=== PATIENT | female | born 1975 | race Caucasian/White ===

== ENCOUNTER 2016-10-18 19:38 | Emergency (ER) | payer BC ==
[2016-10-18 19:49] VITALS: BP 141/95
[2016-10-18] MEDS ORDERED: Sodium Chloride 0.9% 10 ML Syringe FLUSH PRN ×2 (20:56→22:10)
--- NOTE | 2016-10-18 21:19 | EDM.PDOC ---
ED HPI GENERAL MEDICAL PROBLEM - General Chief Complaint: Respiratory Problem Stated Complaint: Cough, shortness of breath Time Seen by Provider: 10/18/16 20:20 Source of Information: Reports: Patient, RN Notes Reviewed History Limitations: Reports: No Limitations - History of Present Illness INITIAL COMMENTS - FREE TEXT/NARRATIVE: 40 year old female presents to the ED today with complaints of 7 day history of cough, shortness of breath, and lightheadedness. She is very short of breath with exertion. Cough is non-productive, frequent, and harsh. The symptoms have worsened over the past 3 days. She feels as though she could pass out at times but has had no syncopal episodes. She reports low grade temperature. No chills or sweats. She has no history of cardiac or pulmonary problems. She denies history of asthma or seasonal allergies. She has not traveled outside the [place]. She denies any history of drug use. She denies clotting disorder or history of blood clots. She has no unilateral or bilateral lower extremity pain, swelling, or erythema. She is not a smoker. She denies possibility of . She says her period was heavier than normal this past month. - Related Data Allergies Allergy/AdvReac Type Severity Reaction Status Date / Time sulfamethoxazole Allergy Hives Verified 10/18/16 22:03 trimethoprim Allergy Hives Verified 10/18/16 22:04 Past Medical History HEENT History: Reports: Impaired Vision Other HEENT History: wears corrective lenses Musculoskeletal History: Reports: Other (See Below) Other Musculoskeletal History: carpal tunnel bilaterally - Past Surgical History HEENT Surgical History: Reports: None GI Surgical History: Reports: Appendectomy Musculoskeletal Surgical History: Reports: Other (See Below) Other Musculoskeletal Surgeries/Procedures:: carpal tunnel corrective surgery Social & Family History - Tobacco Use Smoking Status *Q: Never Smoker Second Hand Smoke Exposure: No - Caffeine Use Caffeine Use: Reports: Soda, Tea - Recreational Drug Use Recreational Drug Use: No ED ROS GENERAL - Review of Systems Review Of Systems: See Below Constitutional: Reports: Malaise, Weakness, Fatigue. Denies: Fever, Chills, Diaphoresis Respiratory: Reports: Shortness of Breath, Cough. Denies: Pleuritic Chest Pain , Sputum, Hemoptysis Cardiovascular: Reports: Dyspnea on Exertion, Lightheadedness. Denies: Chest Pain, Edema, Palpitations, Syncope GI/Abdominal: Reports: No Symptoms. Denies: Abdominal Pain, Nausea, Vomiting : Reports: No Symptoms, Other (recent UTI treated with keflex) Neurological: Reports: No Symptoms. Denies: Confusion, Dizziness, Headache, Numbness, Tingling, Weakness ED EXAM, GENERAL - Physical Exam Exam: See Below Exam Limited By: No Limitations General Appearance: Alert, WD/WN, No Apparent Distress Throat/Mouth: Normal Inspection, Normal Oropharynx, Other (dry mucous membranes ) Head: Atraumatic, Normocephalic Neck: Normal Inspection, Supple, Non-Tender, Full Range of Motion Respiratory/Chest: No Respiratory Distress, Lungs Clear, No Accessory Muscle Use , Chest Non-Tender, Decreased Breath Sounds. No: Crackles, Rales, Rhonchi, Wheezing, Stridor, Pleural Rub Cardiovascular: Normal Peripheral Pulses, No Edema, No Murmur, Tachycardia GI/Abdominal: Normal Bowel Sounds, Soft, Non-Tender Back Exam: Normal Inspection, Full Range of Motion. No: CVA Tenderness (L), CVA Tenderness (R) Extremities: Normal Inspection, Normal Range of Motion, Non-Tender, No Pedal Edema. No: Abdi's Sign, Leg Pain, Increased Warmth, Pallor, Redness Neurological: Alert, Oriented, Normal Cognition, Normal Gait, No Motor/Sensory Deficits Skin Exam: Warm, Dry, Intact Course - Vital Signs Last Recorded V/S: Last Vital Signs Temp 98.1 F 10/18/16 19:46 Pulse 119 H 10/18/16 19:46 Resp 19 10/18/16 19:46 BP 141/95 H 10/18/16 19:46 Pulse Ox Orthostatic Blood Pressure [ 70/49 Standing] Orthostatic Blood Pressure [ 129/86 Sitting] Orthostatic Blood Pressure [ 129/85 Supine] - Orders/Labs/Meds Orders: Active Orders 24 hr Category Date Time Status Orthostatic Vital Signs [RC] ASDIRECTED Care 10/18/16 20:42 Active Peripheral IV Care [RC] . DIRECTED Care 10/18/16 20:56 Active CXR [Chest 2V] [CR] Stat Exams 10/18/16 20:35 Taken Chest w wo Cont [CT] Stat Exams 10/18/16 21:52 Taken CULTURE BLOOD [BC] Stat Lab 10/18/16 23:12 Received CULTURE BLOOD [BC] Stat Lab 10/18/16 23:12 Received QUANTIFERON MTB TEST [REF] Stat Lab 10/18/16 21:29 Received Blood Culture x2 Reflex Set [OM.PC] Stat Oth 10/18/16 22:18 Ordered Peripheral IV Insertion Adult [OM.PC] Stat Oth 10/18/16 20:56 Ordered Labs: Laboratory Tests 10/18/16 10/18/16 10/18/16 Range/Units 21:29 21:29 21:47 WBC 15.41 H (3.98-10.04) K/mm3 RBC 4.87 (3.98-5.22) M/mm3 Hgb 13.6 (11.2-15.7) gm/L Hct 40.6 (34.1-44.9) % MCV 83.4 (79.4-94.8) fl MCH 27.9 (25.6-32.2) pg MCHC 33.5 (32.2-35.5) g/dl RDW Std Deviation 41.4 (36.4-46.3) fL Plt Count 377 H (182-369) K/mm3 MPV 8.8 L (9.4-12.3) fl Neutrophils % (Manual) 70 H (40-60) % Band Neutrophils % 0 (0-10) % Lymphocytes % (Manual) 17 L (20-40) % Atypical Lymphs % 0 % Monocytes % (Manual) 8 (2-10) % Eosinophils % (Manual) 5 (0.7-5.8) % Basophils % (Manual) 0 L (0.1-1.2) Platelet Estimate Adequate Plt Morphology Comment Normal RBC Morph Comment Normal Sodium 136 (136-145) mEq/L Potassium 4.0 (3.5-5.1) mEq/L Chloride 102 (98-107) mEq/L Carbon Dioxide 24 (21-32) mEq/L Anion Gap 14.0 (5-15) BUN 10 (7-18) mg/dL Creatinine 1.0 (0.55-1.02) mg/dL Est Cr Clr Drug Dosing 67.96 mL/min Estimated GFR (MDRD) > 60 (>60) mL/min BUN/Creatinine Ratio 10.0 L (14-18) Glucose 114 H (74-106) mg/dL Lactic Acid (0.4-2.0) mmol/L Calcium 10.8 H (8.5-10.1) mg/dL Total Bilirubin 0.3 (0.2-1.0) mg/dL AST 49 H (15-37) U/L ALT 16 (14-59) U/L Alkaline Phosphatase 96 (46-116) U/L C-Reactive Protein 16.2 H* (<1.0) mg/dL Total Protein 7.9 (6.4-8.2) g/dl Albumin 3.3 L (3.4-5.0) g/dl Globulin 4.6 gm/dL Albumin/Globulin Ratio 0.7 L (1-2) Urine HCG, Qual Negative (NEGATIVE) 10/18/16 Range/Units 23:01 WBC (3.98-10.04) K/mm3 RBC (3.98-5.22) M/mm3 Hgb (11.2-15.7) gm/L Hct (34.1-44.9) % MCV (79.4-94.8) fl MCH (25.6-32.2) pg MCHC (32.2-35.5) g/dl RDW Std Deviation (36.4-46.3) fL Plt Count (182-369) K/mm3 MPV (9.4-12.3) fl Neutrophils % (Manual) (40-60) % Band Neutrophils % (0-10) % Lymphocytes % (Manual) (20-40) % Atypical Lymphs % % Monocytes % (Manual) (2-10) % Eosinophils % (Manual) (0.7-5.8) % Basophils % (Manual) (0.1-1.2) Platelet Estimate Plt Morphology Comment RBC Morph Comment Sodium (136-145) mEq/L Potassium (3.5-5.1) mEq/L Chloride (98-107) mEq/L Carbon Dioxide (21-32) mEq/L Anion Gap (5-15) BUN (7-18) mg/dL Creatinine (0.55-1.02) mg/dL Est Cr Clr Drug Dosing mL/min Estimated GFR (MDRD) (>60) mL/min BUN/Creatinine Ratio (14-18) Glucose (74-106) mg/dL Lactic Acid 1.6 (0.4-2.0) mmol/L Calcium (8.5-10.1) mg/dL Total Bilirubin (0.2-1.0) mg/dL AST (15-37) U/L ALT (14-59) U/L Alkaline Phosphatase (46-116) U/L C-Reactive Protein (<1.0) mg/dL Total Protein (6.4-8.2) g/dl Albumin (3.4-5.0) g/dl Globulin gm/dL Albumin/Globulin Ratio (1-2) Urine HCG, Qual (NEGATIVE) Meds: Medications Discontinued Medications Generic Name Dose Route Start Last Admin Trade Name Freq PRN Reason Stop Dose Admin Sodium Chloride 1,000 mls @ 999 mls/hr 10/18/16 21:36 10/18/16 22:02 Normal Saline IV 10/18/16 22:36 999 mls/hr ONETIME ONE Administration Levofloxacin/Dextrose 500 mg/ 100 mls @ 100 mls/hr 10/18/16 21:48 10/18/16 23 :18 Premix IV 10/18/16 22:47 100 mls/hr ONETIME ONE Administration Sodium Chloride 100 mls @ 65 mls/hr 10/18/16 22:15 10/18/16 22:38 Normal Saline IV 65 mls/hr ASDIRECTED NIRANJAN Administration Iopamidol 100 ml 10/18/16 22:10 10/18/16 22:38 Isovue-370 (76%) IVPUSH 10/18/16 22:11 100 ml ONETIME ONE Administration Iopamidol 50 ml 10/18/16 22:10 10/18/16 22:38 Isovue-370 (76%) IVPUSH 10/18/16 22:11 50 ml ONETIME ONE Administration Sodium Chloride 10 ml 10/18/16 20:56 10/18/16 21:17 Saline Flush FLUSH 10 ml ASDIRECTED PRN Administration Keep Vein Open Sodium Chloride 10 ml 10/18/16 22:10 10/18/16 22:38 Saline Flush FLUSH 10 ml ONETIME PRN Administration IV FLUSH - Re-Assessments/Exams Free Text/Narrative Re-Assessment/Exam: Please lab results as listed above. Blood cultures are pending. 10/18/16 2100 Initial chest x-ray reveals diffuse nodules in both lungs. Chest x-ray read by [facility]. Impression: diffuse nodules in both lungs. primary considerations are metastatic disease versus an infectious process. I asked the patient if she's had any recent chest x-rays and she said no. She does report a history of frequent bronchitis. She again denies any pulmonary or cardiac history. Discussed with Dr. Peterson who recommends chest CT with and without contrast and quantiferon. 10/18/16 23:[address] Marlow. She recommends transfer to [place] as the patient would benefit from pulmonology and likely needs a bronhcoscopy. Patient would prefer [facility]. Called [facility] and spoke to Hospitalist Dr. Nunez. He has accepted care of the patient. He requested that we order a blood fungal culture as well. He agrees with Levaquin and does not recommend any additional antibiotics at this time. Departure - Departure Time of Disposition: 23:30 Disposition: DC/Tfer to [facility] 02 Condition: Fair Clinical Impression: Pulmonary nodules - Discharge Information Referrals: Yanci Kaminski MD [Primary Care Provider] - Forms: ED Department Discharge - My Orders Last 24 Hours: My Active Orders 10/18/16 20:35 CXR [Chest 2V] [CR] Stat 10/18/16 20:42 Orthostatic Vital Signs [RC] ASDIRECTED 10/18/16 20:56 Peripheral IV Care [RC] . DIRECTED Peripheral IV Insertion Adult [OM.PC] Stat 10/18/16 21:29 QUANTIFERON MTB TEST [REF] Stat 10/18/16 21:52 Chest w wo Cont [CT] Stat 10/18/16 22:18 Blood Culture x2 Reflex Set [OM.PC] Stat 10/18/16 23:12 CULTURE BLOOD [BC] Stat CULTURE BLOOD [BC] Stat - Assessment/Plan Last 24 Hours: My Active Orders 10/18/16 20:35 CXR [Chest 2V] [CR] Stat 10/18/16 20:42 Orthostatic Vital Signs [RC] ASDIRECTED 10/18/16 20:56 Peripheral IV Care [RC] . DIRECTED Peripheral IV Insertion Adult [OM.PC] Stat 10/18/16 21:29 QUANTIFERON MTB TEST [REF] Stat 10/18/16 21:52 Chest w wo Cont [CT] Stat 10/18/16 22:18 Blood Culture x2 Reflex Set [OM.PC] Stat 10/18/16 23:12 CULTURE BLOOD [BC] Stat CULTURE BLOOD [BC] Stat
[2016-10-18] MEDS ORDERED: Sodium Chloride 0.9% 1,000 ML IV ONE (21:36)
[2016-10-18] MEDS ORDERED: Levofloxacin/Dextrose 5%-Water 500 MG in Premix Bag 1 BAG IV ONE (21:48)
[2016-10-18] MEDS ORDERED: Iopamidol 755 MG/ML 50 ML Bottle IVPUSH ONE (22:10)
[2016-10-18] MEDS ORDERED: Iopamidol 755 Mg/ML 100 ML Bottle IVPUSH ONE (22:10)
[2016-10-18] MEDS ORDERED: Sodium Chloride 0.9% 100 ML IV SCH (22:15)
--- NOTE | 2016-10-21 17:52 | CR ---
Chest: Two views of the chest are obtained. Comparison: No previous chest x-ray. Comparison: No previous chest imaging is available. Extensive small nodules are noted throughout both lungs. No alveolar densities are seen. Heart size and mediastinum are normal. Bony structures are unremarkable. Impression: 1. Numerous nodules within both sides of the chest. Differential is fairly extensive but includes collagen vascular diseases as well as sarcoidosis, TB or other atypical infections. Diagnostic code #5
--- NOTE | 2016-10-21 17:52 | CT ---
CT chest (without and with contrast) Technique: Multiple axial sections through the chest were obtained. Intravenous contrast was utilized. Comparison: No previous chest CT, previous chest x-ray performed earlier on same day (8:35 PM). Findings: Mediastinum and hilar regions show no adenopathy or mass. No cardiomegaly is seen. No pericardial thickening is seen. Visualized upper abdominal structures are within normal limits. Minimal pleural effusions are seen bilaterally. Innumerable nodules are seen throughout both sides of the chest. None of these nodules show calcification. No filling defects are seen to indicate pulmonary embolism. Impression: 1. Innumerable small nodules throughout both sides of the chest. Differential is extensive but includes collagen vascular disease as well as sarcoidosis although no hilar adenopathy is seen. Atypical infections as well as TB can cause this appearance. Neoplasm is also within the differential. Referral to a dental detail representative is recommended. 2. No findings of pulmonary embolism. 3. Very minimal pleural effusions. 4. Other normal findings as described above. Diagnostic code #9 I agree with preliminary report issued by [facility] ([facility] preliminary report dictated on 10/19/16, 12:04 AM Central Time)
== END 2016-10-19 00:40 ==
LOC: JD.ED 19:38
DX: R91.1 Solitary pulmonary nodule (principal); Z90.49 Acquired absence of other specified parts of digestive tract; Z98.890 Other specified postprocedural states; Z88.2 Allergy status to sulfonamides; Z88.8 Allergy status to other drugs, medicaments and biological substances
CPT/HCPCS: 36415; 71020; 71270; 80053; 81025; 83605; 85025; 86140; 87040; 96361; 96365; 99285; J1956; J7030; J7040; J7050; Q9967

== ENCOUNTER 2017-04-08 05:40 | Inpatient (IN) | payer BC ==
[2017-04-08] MEDS ORDERED: HYDROmorphone 1 MG/ML Syringe IVPUSH ONE ×2 (06:07→07:59)
[2017-04-08] MEDS ORDERED: HYDROmorphone 0.5 MG/0.5 ML SYRINGE IVPUSH ONE ×2 (06:16→08:06)
[2017-04-08] MEDS ORDERED: HYDROmorphone 0.5 MG/0.5 ML SYRINGE ONE (06:19)
[2017-04-08] MEDS ORDERED: Ondansetron 4 MG/2 ML SDV IVPUSH ONE (06:22)
--- NOTE | 2017-04-08 06:27 | EDM.PDOC ---
ED HPI GENERAL MEDICAL PROBLEM - General Chief Complaint: Headache Stated Complaint: CA OF BRAIN/HAVING HEADACHES & LOWER BACK PAIN Time Seen by Provider: 04/08/17 05:58 Source of Information: Reports: Patient, Family History Limitations: Reports: No Limitations - History of Present Illness INITIAL COMMENTS - FREE TEXT/NARRATIVE: The patient has cervical cancer with mets to her lungs and brain. This was discovered back in October of 2016. She has had chemo and radiation. She presents today with a generalized headache. This started yesterday. She has no numbness or weakness. She has no blurred vision or double vision. She has no fever or chills. She has no chest pain or abdominal pain. She does have some low back pain and she has dysuria with frequency. She is concerned she may also have a UTI. She was scheduled to have chemo today but her platelets were to low so they canceled it. Onset: Gradual Duration: Day(s): (Yesterday) Location: Reports: Head Quality: Reports: Ache Severity: Moderate Improves with: Reports: None Worsens with: Reports: None Associated Symptoms: Reports: Headaches. Denies: Chest Pain, Cough, Fever/ Chills, Nausea/Vomiting, Shortness of Breath Headache Pain Score (Numeric/FACES): 9 - Related Data Allergies Allergy/AdvReac Type Severity Reaction Status Date / Time sulfamethoxazole Allergy Hives Verified 10/18/16 22:03 trimethoprim Allergy Hives Verified 10/18/16 22:04 Past Medical History HEENT History: Reports: Impaired Vision Other HEENT History: wears corrective lenses Respiratory History: Reports: Asthma, Other (See Below) Other Respiratory History: Pulmonary nodule [employer] History: Reports: Other (See Below) Other OB/BYN History: uterine cancer Musculoskeletal History: Reports: Other (See Below) Other Musculoskeletal History: carpal tunnel bilaterally Hematologic History: Reports: Blood Transfusion(s) Oncologic (Cancer) History: Reports: Brain, Lung, Uterine - Past Surgical History HEENT Surgical History: Reports: None GI Surgical History: Reports: Appendectomy Musculoskeletal Surgical History: Reports: Other (See Below) Other Musculoskeletal Surgeries/Procedures:: carpal tunnel corrective surgery Social & Family History - Tobacco Use Smoking Status *Q: Never Smoker Second Hand Smoke Exposure: No - Caffeine Use Caffeine Use: Reports: Soda, Tea - Recreational Drug Use Recreational Drug Use: No ED ROS GENERAL - Review of Systems Review Of Systems: See Below Constitutional: Reports: No Symptoms HEENT: Reports: No Symptoms Respiratory: Reports: No Symptoms Cardiovascular: Reports: No Symptoms Endocrine: Reports: No Symptoms GI/Abdominal: Reports: No Symptoms : Reports: Dysuria, Frequency Musculoskeletal: Reports: Back Pain (Low back) Neurological: Reports: Headache - Physical Exam Exam: See Below Exam Limited By: No Limitations General Appearance: Alert, No Apparent Distress Ears: Normal External Exam Nose: Normal Inspection Throat/Mouth: Normal Inspection Head Exam: Atraumatic, Normocephalic Neck: Normal Inspection Respiratory/Chest: No Respiratory Distress, Lungs Clear, Normal Breath Sounds Cardiovascular: Regular Rate, Rhythm, No Edema, No Murmur GI/Abdominal: Soft, Non-Tender, No Organomegaly, No Mass Neuro Exam (Abbreviated): Alert, Oriented, No Motor/Sensory Deficits Course - Vital Signs Last Recorded V/S: Last Vital Signs Temp 96.5 F 04/08/17 05:47 Pulse 146 H 04/08/17 05:47 Resp 16 04/08/17 05:47 BP 144/15 H 04/08/17 05:47 Pulse Ox 98 04/08/17 05:47 - Orders/Labs/Meds Orders: Active Orders 24 hr Category Date Time Status CXR [Chest 1V Frontal] [CR] Stat Exams 04/08/17 08:10 Ordered CULTURE BLOOD [BC] Stat Lab 04/08/17 07:59 Ordered CULTURE BLOOD [BC] Stat Lab 04/08/17 07:59 Ordered CULTURE URINE [RM] Stat Lab 04/08/17 08:21 Ordered INFLUENZA A+B AG SCREEN [RM] Stat Lab 04/08/17 07:58 Ordered Cefepime [Maxipime in D5W 2 GM/50 ML] 2 gm Med 04/08/17 08:23 Ordered Premix Bag 1 bag IV ONETIME Sodium Chloride 0.9% [Normal Saline] 1,000 ml Med 04/08/17 07:31 Active IV ONETIME Blood Culture x2 Reflex Set [OM.PC] Stat Oth 04/08/17 07:59 Ordered Medication Orders Sodium Chloride (Normal Saline) 1,000 mls @ 999 mls/hr IV ONETIME ONE Stop: 04/08/17 08:31 Last Admin: 04/08/17 07:50 Dose: 999 mls/hr Cefepime HCl 2 gm/ Premix 50 mls @ 100 mls/hr IV ONETIME ONE Stop: 04/08/17 08:52 Labs: Laboratory Tests 04/08/17 04/08/17 04/08/17 Range/Units 06:15 06:15 07:18 WBC 1.12 L* (3.98-10.04) K/mm3 RBC 2.82 L (3.98-5.22) M/mm3 Hgb 9.5 L (11.2-15.7) gm/L Hct 28.7 L (34.1-44.9) % MCV 101.8 H (79.4-94.8) fl MCH 33.7 H (25.6-32.2) pg MCHC 33.1 (32.2-35.5) g/dl RDW Std Deviation 63.5 H (36.4-46.3) fL Plt Count 60 L (182-369) K/mm3 MPV 8.2 L (9.4-12.3) fl Neut % (Auto) 65.2 (34.0-71.1) % Lymph % (Auto) 25.9 (19.3-51.7) % [place] % (Auto) 7.1 (4.7-12.5) % Eos % (Auto) 0.9 (0.7-5.8) Baso % (Auto) 0.9 (0.1-1.2) % Neut # (Auto) 0.73 L (1.56-6.13) K/mm3 Lymph # (Auto) 0.29 L (1.18-3.74) K/mm3 [place] # (Auto) 0.08 L (0.24-0.36) K/mm3 Eos # (Auto) 0.01 L (0.04-0.36) K/mm3 Baso # (Auto) 0.01 (0.01-0.08) K/mm3 Manual Slide Review Abnormal smear Sodium 136 (136-145) mEq/L Potassium 3.6 (3.5-5.1) mEq/L Chloride 98 (98-107) mEq/L Carbon Dioxide 24 (21-32) mEq/L Anion Gap 17.6 H (5-15) BUN 15 (7-18) mg/dL Creatinine 0.8 (0.55-1.02) mg/dL Est Cr Clr Drug Dosing 84.11 mL/min Estimated GFR (MDRD) > 60 (>60) mL/min BUN/Creatinine Ratio 18.8 H (14-18) Glucose 97 (74-106) mg/dL Calcium 8.8 (8.5-10.1) mg/dL Total Bilirubin 0.5 (0.2-1.0) mg/dL AST 29 (15-37) U/L ALT 45 (14-59) U/L Alkaline Phosphatase 86 (46-116) U/L Total Protein 7.1 (6.4-8.2) g/dl Albumin 3.2 L (3.4-5.0) g/dl Globulin 3.9 gm/dL Albumin/Globulin Ratio 0.8 L (1-2) Urine Color Yellow (Yellow) Urine Appearance Slt cloudy H (Clear) Urine pH 7.5 (5.0-8.0) Ur Specific [place] 1.020 (1.005-1.030) Urine Protein Trace H (Negative) Urine Glucose (UA) Negative (Negative) Urine Ketones Negative (Negative) Urine Occult Blood Negative (Negative) Urine Nitrite Negative (Negative) Urine Bilirubin Negative (Negative) Urine Urobilinogen 0.2 (0.2-1.0) Ur Leukocyte Esterase Negative (Negative) Urine RBC Not seen (0-5) /hpf Urine WBC 0-5 (0-5) /hpf Ur Epithelial Cells 0-5 (0-5) /hpf Urine Bacteria Not seen (FEW) /hpf Urine Mucus Few (FEW) /hpf Meds: Medications Generic Name Dose Route Start Last Admin Trade Name Freq PRN Reason Stop Dose Admin Sodium Chloride 1,000 mls @ 999 mls/hr 04/08/17 07:31 04/08/17 07:50 Normal Saline IV 04/08/17 08:31 999 mls/hr ONETIME ONE Administration Cefepime HCl 2 gm/ Premix 50 mls @ 100 mls/hr 04/08/17 08:23 IV 04/08/17 08:52 ONETIME ONE Discontinued Medications Generic Name Dose Route Start Last Admin Trade Name Freq PRN Reason Stop Dose Admin Hydromorphone HCl 1 mg 04/08/17 06:07 04/08/17 07:49 Dilaudid IVPUSH 04/08/17 06:08 Not Given ONETIME ONE Hydromorphone HCl Confirm 04/08/17 06:19 04/08/17 06:24 Dilaudid Administered 04/08/17 06:20 Not Given Dose 1 mg .ROUTE .STK-MED ONE Hydromorphone HCl 1 mg 04/08/17 06:16 04/08/17 06:17 Dilaudid IVPUSH 04/08/17 06:17 1 mg ONETIME ONE Administration Hydromorphone HCl 1 mg 04/08/17 07:59 04/08/17 08:13 Dilaudid IVPUSH 04/08/17 08:00 Not Given ONETIME ONE Hydromorphone HCl 1 mg 04/08/17 08:06 04/08/17 08:11 Dilaudid IVPUSH 04/08/17 08:07 1 mg ONETIME ONE Administration Ondansetron HCl 4 mg 04/08/17 06:22 Zofran IVPUSH 04/08/17 06:23 ONETIME ONE - Re-Assessments/Exams Free Text/Narrative Re-Assessment/Exam: 04/08/17 06:25 Her port is already accessed. I ordered labs, UA, CT of her head, dilaudid and zofran. 04/08/17 06:56 Her WBC is low at 1.12. Her Hgb was low at 9.5. Her platelets were low at 60. 04/08/17 08:16 Her anion gap was elevated at 17.6. Her BUN/creatinine ratio was elevated at 18.8. I ordered 1L of NS. Her UA shows no UTI. Her temp was 102 at home. Here it was normal. I have ordered influenza and blood cultures. I do not have the influenza back yet. 04/08/17 08:26 I called her oncologist Dr Nichole and she agreed with my plan except she wanted a urine culture done. With her neutropenia she may not show any signs in her urine. She recommended admission and cefepime 2 grams IV. 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 - Discharge Information Referrals: PCP,Not In Area [Primary Care Provider] - Forms: ED Department Discharge - My Orders Last 24 Hours: My Active Orders 04/08/17 07:58 INFLUENZA A+B AG SCREEN [RM] Stat 04/08/17 07:59 CULTURE BLOOD [BC] Stat CULTURE BLOOD [BC] Stat Blood Culture x2 Reflex Set [OM.PC] Stat 04/08/17 08:10 CXR [Chest 1V Frontal] [CR] Stat 04/08/17 08:21 CULTURE URINE [RM] Stat 04/08/17 08:23 Cefepime [Maxipime in D5W 2 GM/50 ML] 2 gm Premix Bag 1 bag IV ONETIME - Assessment/Plan Last 24 Hours: My Active Orders 04/08/17 07:58 INFLUENZA A+B AG SCREEN [RM] Stat 04/08/17 07:59 CULTURE BLOOD [BC] Stat CULTURE BLOOD [BC] Stat Blood Culture x2 Reflex Set [OM.PC] Stat 04/08/17 08:10 CXR [Chest 1V Frontal] [CR] Stat 04/08/17 08:21 CULTURE URINE [RM] Stat 04/08/17 08:23 Cefepime [Maxipime in D5W 2 GM/50 ML] 2 gm Premix Bag 1 bag IV ONETIME
--- NOTE | 2017-04-08 07:12 | CT ---
Head CT Technique: Multiple axial sections through the brain were obtained. Intravenous contrast was not utilized. Comparison: No prior intracranial imaging. Findings: Low density abnormalities are seen within the left cerebellar hemisphere with lesser low density within the right cerebellar hemisphere. This presumably represents change from patient's brain cancer as noted in the clinical history. Ventricles along with basal cisterns and sulci over the convexities are within normal limits. No evidence of intracranial hemorrhage. No midline shift or mass effect is seen. Mild mucosal thickening is noted within the sphenoid and ethmoid sinuses. No acute calvarial abnormality is seen. Impression: 1. Vague low density within the cerebellum more prominent on the left side. This presumably represents change from the patient's brain cancer as noted in the clinical history. This is very ill-defined and difficult to make accurate measures of. Comparison to old studies would be helpful to determine stability if any are available. 2. Mild mucosal thickening within the sphenoid and ethmoid sinuses which is most likely chronic. 3. No additional abnormality is appreciated on noncontrast head CT exam. Diagnostic code #9
[2017-04-08] MEDS ORDERED: Sodium Chloride 0.9% 1,000 ML IV ONE (07:31)
[2017-04-08] MEDS ORDERED: Cefepime 2 GM in Premix Bag 1 BAG IV ONE (08:23)
[2017-04-08] MEDS ORDERED: Sodium Chloride 0.9% 1,000 ML IV SCH (09:15)
--- NOTE | 2017-04-08 09:28 | CR ---
Chest: Portable view of the chest was obtained. Comparison: Prior chest x-ray and chest CT of 10/18/16. Heart size and mediastinum are normal. Previous reticulonodular appearance has disappeared within both lungs from previous exam. Infusion port is seen entering from the left side. No acute parenchymal densities are seen. Bony structures are grossly intact. Impression: 1. Previous chest x-ray showed diffuse reticulonodular which has resolved when compared to prior exam. 2. Infusion port is seen. 3. Nothing acute is identified on portable chest x-ray. Diagnostic code #2
[2017-04-08] MEDS ORDERED: Ondansetron 4 MG/2 ML SDV ONE (09:57)
[2017-04-08] MEDS ORDERED: Albuterol/Ipratropium 3.0-0.5 MG/3 ML Neb Soln NEB PRN (10:56)
[2017-04-08] MEDS ORDERED: Docusate Sodium 100 MG Cap PO PRN (10:56)
[2017-04-08] MEDS ORDERED: Promethazine 12.5 MG in Sodium Chloride 0.9% 50 ML IV PRN (10:56)
[2017-04-08] MEDS ORDERED: Acetaminophen 325 MG Tab PO PRN (10:56)
[2017-04-08] MEDS ORDERED: Acetaminophen/HYDROcodone 325-5 MG Tab PO PRN (10:56)
[2017-04-08] MEDS ORDERED: Bisacodyl 5 MG Tab PO PRN (10:56)
[2017-04-08] MEDS ORDERED: Magnesium Hydroxide 400 MG/5 ML Susp 30 ML Cup PO PRN (10:56)
[2017-04-08] MEDS ORDERED: Ondansetron 4 MG/2 ML SDV IV PRN (10:56)
[2017-04-08] MEDS ORDERED: Polyethylene Glycol 3350 Powder 17 GM Packet PO PRN (10:56)
--- NOTE | 2017-04-08 10:56 | PCM.HP ---
H&P History of Present Illness - General Date of Service: 04/08/17 Admit Problem/Dx: Admission Diagnosis/Problem Admission Diagnosis/Problem Fever Source of Information: Patient, Family, Old Records, Provider, RN Notes Reviewed History Limitations: Reports: No Limitations - History of Present Illness Initial Comments - Free Text/Narative: This is a 41 yo white female with past medical hx/o Impaired Vision, Asthma, Uterine CA with Metastasis to the Lungs and Brain, and CTS S/p Surgery who comes in to ED for evaluation of dysuria and was found pancytopenic. Her chief complaint is associated with generalized weakness, back pain and acute headache. She denies any neurological deficits. Patient is concerned she may have UTI. Patient carries a hx/o metastatic disease to the brain and lungs. She had 12 brain tumors and completed 10 cycles of radiation therapy. Her oncologist was consulted in [place] and a recommendation was given to admit her and be put on infusion treatment with Cefepime 2 gram Q8H. Her initial workup in emergency department shows a CBC remarkable for WBC of 1.12, RBC of 2.82, hemoglobin of 9.5, hematocrit of 28.7, MCV of 101.8, MCH of 32.7, RDW of 63.5, platelet count of 60, MPV of 8.2, neutrophils of 0.73, lymphocytes of 0.29, monocytes of 0.08, and eosinophils of 0.01. Her chemistry is Unremarkable with exception of anion gap of 17.6, and albumin of 2.2. Her UA is not suggestive for urinary tract infection. Her chest x-ray shows no obvious infiltrate. Her head CT scan report reads vague density within the cerebellum more prominent on the left side. This presumably represents change from the patient's brain cancer as noted in the clinical history. This is a very ill- defined and difficult to make accurate measures of. Comparison to old studies would be helpful to determine stability if any are available. Mild mucosal thickening within the sphenoid and ethmoid sinuses which is most likely chronic. No additional abnormalities appreciated and non-contrast head CT scan exam. Patient is being admitted for Pancytopenia and Possible UTI. She is full code. Headache Pain Score (Numeric/FACES): 9 - Related Data Allergies/Adverse Reactions: Allergies Allergy/AdvReac Type Severity Reaction Status Date / Time sulfamethoxazole Allergy Hives Verified 04/08/17 09:34 trimethoprim Allergy Hives Verified 04/08/17 09:34 duloxetine [From Cymbalta] AdvReac Hallucinati Verified 04/08/17 11:15 ons fentanyl AdvReac Nausea and Verified 04/08/17 14:34 Vomiting Home Medications: Home Meds Albuterol [IJD: Ventolin HFA] 2 puff INH Q4HR PRN 04/08/17 [History] Budesonide/Formoterol [Symbicort 80-4.5 MCG] 1 puff INH BID 04/08/17 [History] Dexamethasone 2 mg PO BID 04/08/17 [History] Hydrocodone/Acetaminophen [Hydrocodon-Acetaminophen 5-325] 1 - 2 tab PO Q4H PRN 04/08/17 [History] LORazepam 0.5 mg PO QID PRN 04/08/17 [History] Lidocaine/Prilocaine [Lidocaine-Prilocaine Cream] 1 applic TOP ASDIRECTED [History] Omeprazole 40 mg PO DAILY 04/08/17 [History] Ondansetron [Zofran ODT] 4 mg PO Q4H PRN 04/08/17 [History] Prochlorperazine [Compazine] 10 mg PO QID PRN 04/08/17 [History] Promethazine [Phenergan] 0.5 ml TOP Q6H PRN 04/08/17 [History] Sertraline [Zoloft] 50 mg PO DAILY 04/08/17 [History] Past Medical History HEENT History: Reports: Impaired Vision Other HEENT History: wears corrective lenses Respiratory History: Reports: Asthma, Other (See Below) Other Respiratory History: Pulmonary nodule 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) Other OB/BYN History: uterine cancer Musculoskeletal History: Reports: Other (See Below) Other Musculoskeletal History: carpal tunnel bilaterally Hematologic History: Reports: Blood Transfusion(s) Oncologic (Cancer) History: Reports: Brain, Lung, Uterine - Past Surgical History HEENT Surgical History: Reports: None GI Surgical History: Reports: Appendectomy Musculoskeletal Surgical History: Reports: Other (See Below) Other Musculoskeletal Surgeries/Procedures:: carpal tunnel corrective surgery Social & Family History - Tobacco Use Smoking Status *Q: Never Smoker Second Hand Smoke Exposure: No - Caffeine Use Caffeine Use: Reports: None - Recreational Drug Use Recreational Drug Use: No H&P Review of Systems - Review of Systems: Review Of Systems: See Below General: Reports: Malaise, Weakness, Fatigue. Denies: Fever, Chills HEENT: Reports: No Symptoms Pulmonary: Denies: Shortness of Breath Cardiovascular: Denies: Chest Pain, Palpitations, Dyspnea on Exertion, Lightheadedness Gastrointestinal: Reports: Flatus. Denies: Abdominal Pain, Constipation, Diarrhea, Decreased Appetite, Difficulty Swallowing, Nausea, Vomiting Genitourinary: Reports: Dysuria, Frequency Musculoskeletal: Reports: Back Pain Skin: Denies: Cyanosis, Jaundice, Mottled, Pallor, Diaphoresis, Bruising, Pruritis, Rash, Erythema, Wound Psychiatric: Denies: Depression, Mood Lability, Anxiety, Agitation, Cravings, Hallucinations Neurological: Reports: Headache. Denies: Confusion, Seizure, Difficulty Walking , Weakness, Gait Disturbance Hematologic/Lymphatic: Reports: No Symptoms Immunologic: Reports: No Symptoms Exam - Exam Exam: See Below - Vital Signs Vital Signs: Last Vital Signs Temp 36.7 C 04/08/17 10:05 Pulse 136 H 04/08/17 10:05 Resp 28 H 04/08/17 10:05 BP 107/46 L 04/08/17 10:05 Pulse Ox 97 04/08/17 10:05 Weight: 94.801 kg - Exam General: Alert, Oriented, Cooperative. No: Mild Distress HEENT: Conjunctiva Clear, EACs Clear, EOMI, Hearing Intact, Mucosa Moist & [place] , Nares Patent, Normal Nasal Septum, Posterior Pharynx Clear, Pupils Equal, Pupils Reactive, Other (completely bald) Neck: Supple, Trachea Midline Lungs: Clear to Auscultation, Normal Respiratory Effort Cardiovascular: Regular Rate, Regular Rhythm, Other (port-a-cath on left upper thorax) GI/Abdominal Exam: Normal Bowel Sounds, Soft, Non-Tender, No Organomegaly, No Distention, No Abnormal Bruit, Other (Obese) (Female) Exam: Deferred Rectal (Female) Exam: Deferred Back Exam: Normal Inspection, Decreased Range of Motion Extremities: Normal Inspection, Normal Range of Motion, Non-Tender, No Pedal Edema, Normal Capillary Refill Peripheral Pulses: 3+: Posterior Tibial (L), Posterior Tibial (R), Dorsalis Pedis (L), Dorsalis Pedis (R) Skin: Warm, Dry, Intact Neuro Extensive - Mental Status: Oriented x3, Normal Cognition, Memory Intact Neuro Extensive - Motor, Sensory, Reflexes: CN II-XII Intact, Normal Gait Psychiatric: Alert, Normal Mood. No: Normal Affect - Patient Data Result Diagrams: 04/09/17 05:45 04/09/17 05:45 *Q Meaningful Use (ADM) - VTE *Q VTE Criteria *Q: - Stroke *Q Stroke Criteria *Q: - AMI *Q AMI Criteria *Q: Problem List Initiated/Reviewed/Updated: Yes Orders Last 24hrs: Medication Orders Sodium Chloride (Normal Saline) 1,000 mls @ 150 mls/hr IV ASDIRECTED NIRANJAN Last Admin: 04/08/17 09:09 Dose: 150 mls/hr Assessment/Plan Comment:: Assessment/Plan: Acute: Pancytopenia - 2/2 Metastatic Disease - S/p Chemo and Radiation Therapy - Consulted Dr. Nichole by ED provider: He recommends admission and infusion of IV Cefepime 2 gram IV Q8H - Scheduled for infusion therapy today but cancelled due to low platelet levels - Monitor Labs Neutropenia - 2/2 underlying Malignancy and recent Chemotherapy - She has no fever - WBC is 1.12 and Neutrophil # 0.73 - Isolation Precautions - Limit visitations from family or friends Hypotension - Documented BP of 89/53 mmHg - Sepsis risk due to immuno-suppressed state - R/o Bacteremia - Will give 2.5 L NS bolus - LA Dysuria - UA is not suggestive of UTI - Pending UA Cx - Continue current IV Abx Generalized Weakness - Cancer and Chemotherapy related - PT/OT consult Headache - Acute on Chronic - 2/2 Metastatic Brain Disease - Has had 12 tumors with 10 session of radiation therapy - Recent MRI < 4 weeks ago in [place] - Continue Dexamethasone High Sepsis Risk - Given her immuno-suppressed states Chronic: Impaired Vision Asthma Metastatic Disease to the Lungs and Brain Uterine CA CTS s/p Surgery Plan: Admit to the floor She can eat whatever she wants Resume Home Meds Routine AM Labs Recommend considering medical marijuana down the road GI PPx: H2B DVT PPx: SCDs PT/OT consult SW/CM for d/c planning Code status: 1
[2017-04-08] MEDS ORDERED: Prochlorperazine 5 MG Tab PO PRN (11:06)
[2017-04-08] MEDS ORDERED: PROMETHAZINE TOP PRN (11:06)
[2017-04-08] MEDS ORDERED: hydrALAZINE 20 MG/ML SDV IVPUSH PRN (11:11)
[2017-04-08] MEDS ORDERED: Metoprolol Tartrate 5 MG/5 ML SDV IVPUSH PRN (11:11)
[2017-04-08] MEDS ORDERED: LORazepam 2 MG/ML MDV IVPUSH PRN (11:11)
[2017-04-08] MEDS ORDERED: LIDOCAINE TOP SCH (11:15)
[2017-04-08] MEDS ORDERED: PRILOCAINE TOP SCH (11:15)
[2017-04-08] MEDS ORDERED: Scopolamine 1 MG Transdermal Patch TRDERM PRN (11:32)
[2017-04-08] MEDS ORDERED: fentaNYL 12 MCG/HR Transdermal Patch TRDERM SCH (13:30)
[2017-04-08] MEDS ORDERED: fentaNYL 25 MCG/HR Transdermal Patch TRDERM SCH (14:00)
[2017-04-08] MEDS ORDERED: Sodium Chloride 0.9% 2,000 ML IV ONE (14:03)
--- NOTE | 2017-04-08 14:34 | PCM.SN ---
- Free Text/Narrative Note: Patient was found profoundly hypotensive with both automated and manual pressure. Will start 2L NS bolus and re-assess. If no response to treatment, will move her to the unit and start her on pressor.
[2017-04-08] MEDS ORDERED: Bisacodyl 10 MG Supp RECTAL ONE (14:59)
[2017-04-08] MEDS: Dronabinol 2.5 MG Cap PO SCH ×2 (15:12→21:41)
[2017-04-08] MEDS: Cefepime 2 GM in Premix Bag 1 BAG IV SCH ×2 (16:55→23:39)
[2017-04-08] MEDS: HYDROmorphone 0.5 MG/0.5 ML SYRINGE IVPUSH PRN (20:14)
[2017-04-08] MEDS: Dexamethasone 4 MG Tab PO SCH (20:15)
[2017-04-08] MEDS: Sodium Chloride 0.9% 1,000 ML IV SCH (21:08)
[2017-04-08] MEDS: Temazepam 15 MG Cap PO PRN (21:18)
[2017-04-08] MEDS: Formoterol/Mometasone 100-5 MCG 8.8 GM Inhaler IH SCH (21:39)
[2017-04-08] MEDS: LORazepam 2 MG/ML MDV IV PRN (23:32)
[2017-04-09] MEDS: oxyCODONE 5 MG Tab PO PRN ×3 (02:43→21:03)
[2017-04-09] MEDS: HYDROmorphone 0.5 MG/0.5 ML SYRINGE IVPUSH PRN ×4 (02:45→21:06)
[2017-04-09] MEDS: Sodium Chloride 0.9% 1,000 ML IV SCH ×3 (06:05→22:02)
[2017-04-09] MEDS: Pantoprazole 40 MG Tab.CR PO SCH (06:06)
--- NOTE | 2017-04-09 06:37 | PCM.PN ---
- General Info Date of Service: 04/09/17 Admission Dx/Problem (Free Text): Admission Diagnosis/Problem Admission Diagnosis/Problem Fever Subjective Update: Follow Up Functional Status: Reports: Pain Controlled, Tolerating Diet, Ambulating, Urinating. Denies: New Symptoms - Review of Systems General: Denies: Fever, Weakness, Fatigue, Malaise, Chills HEENT: Reports: Headaches. Denies: Ear Pain, Eye Pain, Visual Changes Pulmonary: Denies: Shortness of Breath, Pleuritic Chest Pain, Cough, Sputum, Wheezing Cardiovascular: Denies: Chest Pain, Palpitations, Dyspnea on Exertion, Edema, Lightheadedness Gastrointestinal: Reports: Flatus. Denies: Abdominal Pain, Constipation, Decreased Appetite, Diarrhea, Difficulty Swallowing, Hematochezia, Melena, Nausea, Vomiting Genitourinary: Reports: No Symptoms Musculoskeletal: Reports: Back Pain Skin: Denies: Cyanosis, Jaundice, Mottled, Pallor, Diaphoresis, Bruising, Pruritis Neurological: Reports: Headache. Denies: Confusion, Dizziness, Numbness, Paresthesia, Seizure, Tingling, Trouble Speaking, Difficulty Walking, Weakness, Change in Speech, Gait Disturbance Psychiatric: Denies: Depression, Mood Lability, Anxiety, Agitation, Hallucinations, Suicidal Ideation Systems Review Comment:: Patient no significant overnight issues. She did not sleep well due to pounding HAs. Her headache usually improves with narcotic pill. Her WBC improved to 1.98 from 1.12. She remains afebrile. Her Hgb is down to 7.8 from 9.5. Her Mag level is 1.3 this morning. Her CRP considerably went up from 8.6 to 41.1. - Patient Data Vitals - Most Recent: Last Vital Signs Temp 37.7 C 04/09/17 04:29 Pulse 107 H 04/09/17 04:29 Resp 20 04/09/17 04:29 BP 116/75 04/09/17 04:29 Pulse Ox 94 L 04/09/17 04:29 Weight - Most Recent: 98.883 kg I&O - Last 24 Hours: Intake & Output 04/08/17 04/08/17 04/09/17 14:59 22:59 06:59 Intake Total 760 3912 Output Total 900 500 Balance -140 3412 Lab Results Last 24 Hours: Laboratory Results - last 24 hr 04/08/17 04/08/17 Range/Units 11:45 16:06 Lactic Acid 2.9 H (0.4-2.0) mmol/L Vitamin B12 337 (193-986) pg/ml Folate 5.1 L (8.6-58.9) ng/mL Med Orders - Current: Current Medications Acetaminophen (Tylenol) 650 mg PO Q4H PRN PRN Reason: Pain (Mild 1-3)/fever Last Admin: 04/08/17 23:36 Dose: 650 mg Albuterol/Ipratropium (Duoneb 3.0-0.5 Mg/3 Ml) 3 ml NEB Q4H PRN PRN Reason: Shortness Of Breath/wheezing Bisacodyl (Dulcolax) 5 mg PO DAILY PRN PRN Reason: Constipation Dexamethasone (Dexamethasone) 2 mg PO BID [facility] Last Admin: 04/08/17 20:15 Dose: 2 mg Docusate Sodium (Colace) 100 mg PO BID PRN PRN Reason: Constipation Hydralazine HCl (Apresoline) 20 mg IVPUSH Q4H PRN PRN Reason: Hypertension Hydromorphone HCl (Dilaudid) 1 mg IVPUSH Q4H PRN PRN Reason: Pain Last Admin: 04/09/17 02:45 Dose: 1 mg Promethazine HCl 12.5 mg/ (Sodium Chloride) 50.5 mls @ 100 mls/hr IV Q6H PRN PRN Reason: Nausea/Vomiting Cefepime HCl 2 gm/ Premix 50 mls @ 100 mls/hr IV Q8H [facility] Last Admin: 04/08/17 23:39 Dose: 100 mls/hr Sodium Chloride (Normal Saline) 1,000 mls @ 125 mls/hr IV ASDIRECTED [facility] Last Admin: 04/09/17 06:05 Dose: 125 mls/hr Lorazepam (Ativan) 1 mg IV Q6H PRN PRN Reason: Anxiety Last Admin: 04/08/17 23:32 Dose: 1 mg Lorazepam (Ativan) 2 mg IVPUSH Q4H PRN PRN Reason: Seizures Magnesium Hydroxide (Milk Of Magnesia) 30 ml PO Q12H PRN PRN Reason: Constipation Magnesium Sulfate (Pharmacy To Dose - Magnesium Replacement) 1 dose .XX ASDIRECTED [facility] Metoprolol Tartrate (Lopressor) 5 mg IVPUSH Q4H PRN PRN Reason: Tachycardia Last Admin: 04/09/17 00:28 Dose: 5 mg Mometasone Furoate/Formoterol Fumar (Dulera 100-5 Mcg) 0 puff IH BID NIRANJAN Last Admin: 04/08/17 21:39 Dose: 2 puff Ondansetron HCl (Zofran) 4 mg IV Q4H PRN PRN Reason: Nausea/Vomiting Oxycodone HCl (Oxycodone) 5 mg PO Q4H PRN PRN Reason: Pain Last Admin: 04/09/17 02:43 Dose: 5 mg Pantoprazole Sodium (Protonix) 40 mg PO DAILY@0700 [facility] Last Admin: 04/09/17 06:06 Dose: 40 mg Lidocaine/Prilocaine (1 Applic) 0 each TOP ASDIRECTED [facility] Promethazine [ (Phenergan] Plo Gel) 0 each TOP Q6H PRN PRN Reason: Nausea Polyethylene Glycol (Miralax) 17 gm PO DAILY PRN PRN Reason: Constipation Last Admin: 04/08/17 15:33 Dose: 17 gm Potassium Chloride (Pharmacy To Dose - Potassium Replacement) 1 dose .XX ASDIRECTED [facility] Prochlorperazine Maleate (Compazine) 10 mg PO QID PRN PRN Reason: Nausea/Vomiting Scopolamine (Scopolamine) 1 each TRDERM Q72H PRN PRN Reason: Nausea Last Admin: 04/08/17 12:48 Dose: 1 each Senna/Docusate Sodium (Senna Plus) 1 tab PO BID PRN PRN Reason: Constipation Last Admin: 04/08/17 15:33 Dose: 1 tab Sertraline HCl (Zoloft) 50 mg PO DAILY [facility] Temazepam (Restoril) 15 mg PO BEDTIME PRN PRN Reason: Sleep Last Admin: 04/08/17 21:18 Dose: 15 mg Discontinued Medications Hydrocodone Bitart/Acetaminophen ([place] 325-5 Mg) 1 tab PO Q4H PRN PRN Reason: Pain (moderate 4-6) Last Admin: 04/08/17 12:49 Dose: 1 tab Bisacodyl (Dulcolax) 10 mg RECTAL ONETIME ONE Stop: 04/08/17 15:00 Last Admin: 04/08/17 15:13 Dose: 10 mg Dronabinol (Marinol) 2.5 mg PO TIDAC NIRANJAN Last Admin: 04/08/17 21:41 Dose: Not Given Fentanyl (Duragesic) 12 mcg TRDERM Q72H NIRANJAN Fentanyl (Duragesic) 25 mcg TRDERM Q72H NIRANJAN Last Admin: 04/08/17 21:45 Dose: Not Given Hydromorphone HCl (Dilaudid) 1 mg IVPUSH ONETIME ONE Stop: 04/08/17 06:08 Last Admin: 04/08/17 07:49 Dose: Not Given Hydromorphone HCl (Dilaudid) Confirm Administered Dose 1 mg .ROUTE .STK-MED ONE Stop: 04/08/17 06:20 Last Admin: 04/08/17 06:24 Dose: Not Given Hydromorphone HCl (Dilaudid) 1 mg IVPUSH ONETIME ONE Stop: 04/08/17 06:17 Last Admin: 04/08/17 06:17 Dose: 1 mg Hydromorphone HCl (Dilaudid) 1 mg IVPUSH ONETIME ONE Stop: 04/08/17 08:00 Last Admin: 04/08/17 08:13 Dose: Not Given Hydromorphone HCl (Dilaudid) 1 mg IVPUSH ONETIME ONE Stop: 04/08/17 08:07 Last Admin: 04/08/17 08:11 Dose: 1 mg Sodium Chloride (Normal Saline) 1,000 mls @ 999 mls/hr IV ONETIME ONE Stop: 04/08/17 08:31 Last Admin: 04/08/17 07:50 Dose: 999 mls/hr Cefepime HCl 2 gm/ Premix 50 mls @ 100 mls/hr IV ONETIME ONE Stop: 04/08/17 08:52 Last Admin: 04/08/17 09:07 Dose: 100 mls/hr Sodium Chloride (Normal Saline) 1,000 mls @ 150 mls/hr IV ASDIRECTED [facility] Last Admin: 04/08/17 09:09 Dose: 150 mls/hr Sodium Chloride (Normal Saline) 2,000 mls @ 999.029 mls/hr IV ONETIME ONE Stop: 04/08/17 16:03 Last Admin: 04/08/17 15:38 Dose: 999.029 mls/hr Miscellaneous Information (Remove Patch) 0 ea TRDERM Q72H NIRANJAN Ondansetron HCl (Zofran) 4 mg IVPUSH ONETIME ONE Stop: 04/08/17 06:23 Last Admin: 04/08/17 08:37 Dose: Not Given Ondansetron HCl (Zofran) Confirm Administered Dose 4 mg .ROUTE .STK-MED ONE Stop: 04/08/17 09:58 Last Admin: 04/08/17 09:48 Dose: 4 mg - Exam General: Alert, Oriented, Cooperative, No Acute Distress, Other (weak and tired) HEENT: Pupils Equal, Pupils Reactive, EOMI, Mucous Membr. Moist/[place] Neck: Supple, Trachea Midline, No JVD Lungs: Clear to Auscultation, Normal Respiratory Effort Cardiovascular: Regular Rate, Regular Rhythm GI/Abdominal Exam: Normal Bowel Sounds, Soft, Non-Tender, No Organomegaly, No Distention, No Abnormal Bruit (Female) Exam: Deferred Back Exam: Normal Inspection, Decreased Range of Motion Extremities: Normal Inspection, Normal Range of Motion, Non-Tender, No Pedal Edema, Normal Capillary Refill Peripheral Pulses: 3+: Posterior Tibial (L), Posterior Tibial (R), Dorsalis Pedis (L), Dorsalis Pedis (R) Skin: Warm, Dry, Intact Neurological: No New Focal Deficit Psy/Mental Status: Normal Affect, Depressed. No: Anxious, Suicidal Ideation, Homicidal Ideation, Hallucinations, Withdrawal Symptoms - Problem List Review Problem List Initiated/Reviewed/Updated: Yes - My Orders Last 24 Hours: My Active Orders 04/08/17 06:15 METHYLMALONIC ACID [REF] Routine 04/08/17 10:56 Height and Weight [RC] 04 Up With Assistance [RC] ASDIRECTED Up ad Dian [RC] ASDIRECTED Acetaminophen [Tylenol] 650 mg PO Q4H PRN Albuterol/Ipratropium [DuoNeb 3.0-0.5 MG/3 ML] 3 ml NEB Q4H PRN Bisacodyl [Dulcolax] 5 mg PO DAILY PRN Docusate Sodium [Colace] 100 mg PO BID PRN Docusate Sodium/Sennosides [Senna Plus] 1 tab PO BID PRN LORazepam [Ativan] 1 mg IV Q6H PRN Magnesium Hydroxide [Milk of Magnesia] 30 ml PO Q12H PRN Ondansetron [Zofran] 4 mg IV Q4H PRN Polyethylene Glycol 3350 [MiraLAX] 17 gm PO DAILY PRN Promethazine [Phenergan] 12.5 mg Sodium Chloride 0.9% [Normal Saline] 50 ml IV Q6H Resuscitation Status Routine 04/08/17 10:57 Oxygen Therapy [RC] PRN VTE/DVT Education [RC] DAILY Vital Signs [RC] Q4HR 04/08/17 10:59 Intake and Output [RC] 04,16 04/08/17 11:00 Sequential Compression Device [OM.PC] Per Unit Routine 04/08/17 11:01 Antiembolic Devices [RC] BID RT Aerosol Therapy [RC] ASDIRECTED 04/08/17 11:02 Consult to Case Management [CONS] Routine Consult to Sales Host [CONS] Routine Consult to Spiritual Care [CONS] Routine OT Evaluation and Treatment [CONS] Routine PT Evaluation and Treatment [CONS] Routine 04/08/17 11:06 Patient's Own Medication [Ptom] 0 each TOP Q6H PRN Prochlorperazine [Compazine] 10 mg PO QID PRN 04/08/17 11:11 LORazepam [Ativan] 2 mg IVPUSH Q4H PRN Metoprolol Tartrate [Lopressor] 5 mg IVPUSH Q4H PRN hydrALAZINE [Apresoline] 20 mg IVPUSH Q4H PRN 04/08/17 11:15 Magnesium Rep Pharmacy to Dose [Pharmacy to Dose - Magnesium Replacement] 1 dose .XX ASDIRECTED Patient's Own Medication [Ptom] 0 each TOP ASDIRECTED Potassium Rep Pharmacy to Dose [Pharmacy to Dose - Potassium Replacement] 1 dose .XX ASDIRECTED 04/08/17 11:32 Scopolamine 1 each TRDERM Q72H PRN 04/08/17 13:25 oxyCODONE 5 mg PO Q4H PRN 04/08/17 13:28 Heat Therapy [OM.PC] Routine 04/08/17 14:32 HYDROmorphone [Dilaudid] 1 mg IVPUSH Q4H PRN 04/08/17 16:00 Cefepime [Maxipime in D5W 2 GM/50 ML] 2 gm Premix Bag 1 bag IV Q8H 04/08/17 18:00 Sodium Chloride 0.9% [Normal Saline] 1,000 ml IV ASDIRECTED 04/08/17 21:00 Dexamethasone 2 mg PO BID Mometasone/Formoterol [Dulera 100-5 MCG] 0 puff IH BID Temazepam [Restoril] 15 mg PO BEDTIME PRN 04/08/17 Lunch Regular Diet [DIET] 04/09/17 05:11 BASIC METABOLIC PANEL,BMP [CHEM] AM C-REACTIVE PROTEIN [CHEM] AM CBC WITH AUTO DIFF [HEME] AM MAGNESIUM [CHEM] AM 04/09/17 07:00 Pantoprazole [ProTONIX] 40 mg PO DAILY@0700 04/09/17 09:00 Sertraline [Zoloft] 50 mg PO DAILY 04/10/17 05:11 BASIC METABOLIC PANEL,BMP [CHEM] AM C-REACTIVE PROTEIN [CHEM] AM MAGNESIUM [CHEM] AM 04/11/17 05:11 BASIC METABOLIC PANEL,BMP [CHEM] AM C-REACTIVE PROTEIN [CHEM] AM MAGNESIUM [CHEM] AM 04/12/17 05:11 BASIC METABOLIC PANEL,BMP [CHEM] AM C-REACTIVE PROTEIN [CHEM] AM MAGNESIUM [CHEM] AM 04/13/17 05:11 BASIC METABOLIC PANEL,BMP [CHEM] AM C-REACTIVE PROTEIN [CHEM] AM MAGNESIUM [CHEM] AM 04/14/17 05:11 BASIC METABOLIC PANEL,BMP [CHEM] AM C-REACTIVE PROTEIN [CHEM] AM MAGNESIUM [CHEM] AM - Plan Plan:: Assessment/Plan: Acute: Pancytopenia - 2/2 Metastatic Disease - S/p Chemo and Radiation Therapy - Consulted Dr. Nichole by ED provider: He recommends admission and infusion of IV Cefepime 2 gram IV Q8H - Scheduled for infusion therapy today but cancelled due to low platelet levels - Hgb 9.5 --> now 7.8 (possibly dilutional since she received about 2.5 L of NS) - Continue current IV Abx; no changes until we get results of blood culture Neutropenia, Improving - 2/2 underlying Malignancy and recent chemotherapy - She has no fever - WBC is 1.12 and Neutrophil # 0.73--> 1.47 - Isolation Precautions - Limit visitations from family or friends Generalized Weakness - Cancer and Chemotherapy related - Continue PT/OT Headache - Acute on Chronic - 2/2 Metastatic Brain Disease - Has had 12 tumors with 10 session of radiation therapy - Recent MRI < 4 weeks ago in [place] - Continue Dexamethasone - PRN Fioricet this may not help much - She is aware this is due to her brain cancer Lactic Acidosis - LA 2.9 --> 2.3 - She is adequately hydrating at NS 125 cc/hr; will up rate to 150 cc/hr - Her pressures have improved significantly High Sepsis Risk - Given her immuno-suppressed states - Will wait for blood cultures Hypomagnesemia - Mg 1.3 - 2/2 Inadequate intake - Replete and monitor Folate Deficiency - Folate level of 5.1 - Replete and monitor Resolved: S/p Hypotension - Documented BP of 89/53 mmHg - Sepsis risk due to immuno-suppressed state - Will give 2.5 L NS bolus - LA: 2.9 --> 2.3 S/p Dysuria - UA suggestive of UTI - UA Cx: Mixed Mariah - Continue current IV Abx Chronic: Impaired Vision Asthma Metastatic Disease to the Lungs and Brain Uterine CA CTS s/p Surgery Plan: She is about the same clinically but hemodynically improved Continue current treatment She can eat whatever she wants Routine AM Labs GI/DVT PPx: H2B and SCDs Continue PT/OT SW/CM for d/c planning Code status: 1 Prognosis is very poor with metastatic brain and lung disease
--- NOTE | 2017-04-09 07:46 | PCM.SN ---
- Free Text/Narrative Note: Received a call from Microbiology. Patient's blood cultures turned pos overnight and it appears she may be growing Staph aureus per Lab. Currently, she in on Cefepime which has adequate coverage for gram pos organism. But given her immuno-suppressed state, she may benefit with additional antibiotic strictly for gram pos coverage. Her CXR shows no acute infiltrate. UA is not impressive, UA Cx is still pending. Patient has a Port-A-line for chemotherapy infusion site and concerned that this maybe origin of her bacteremia. Will ask pharmacy for guidance/ recommendations.
[2017-04-09] MEDS: Formoterol/Mometasone 100-5 MCG 8.8 GM Inhaler IH SCH ×2 (08:16→23:06)
[2017-04-09] MEDS: Dexamethasone 4 MG Tab PO SCH ×2 (08:20→21:00)
[2017-04-09] MEDS: Sertraline 50 MG Tab PO SCH (08:21)
[2017-04-09] MEDS: Cefepime 2 GM in Premix Bag 1 BAG IV SCH ×2 (08:22→16:35)
[2017-04-09] MEDS ORDERED: Magnesium Sulfate/Water 2 GM in Premix Bag 1 BAG IV SCH (09:00)
[2017-04-09] MEDS ORDERED: Magnesium Sulfate/Water 4 GM in Premix Bag 1 BAG IV ONE (11:30)
[2017-04-09] MEDS: Temazepam 15 MG Cap PO PRN (21:01)
[2017-04-09] MEDS: LORazepam 2 MG/ML MDV IV PRN (21:09)
[2017-04-10] MEDS: Cefepime 2 GM in Premix Bag 1 BAG IV SCH ×2 (00:33→09:05)
[2017-04-10] MEDS: oxyCODONE 5 MG Tab PO PRN ×3 (04:46→22:33)
[2017-04-10] MEDS: HYDROmorphone 0.5 MG/0.5 ML SYRINGE IVPUSH PRN ×3 (04:47→20:45)
[2017-04-10] MEDS: Pantoprazole 40 MG Tab.CR PO SCH (06:34)
[2017-04-10] MEDS: Sodium Chloride 0.9% 1,000 ML IV SCH (06:35)
[2017-04-10] MEDS: Formoterol/Mometasone 100-5 MCG 8.8 GM Inhaler IH SCH ×2 (08:17→21:21)
[2017-04-10] MEDS: Acetaminophen/Butalbital/Caffeine 325-50-40 MG Tab PO PRN (08:55)
[2017-04-10] MEDS: Dexamethasone 4 MG Tab PO SCH ×2 (08:56→22:31)
[2017-04-10] MEDS: Folic Acid 1 MG Tab PO SCH (08:56)
[2017-04-10] MEDS: Sertraline 50 MG Tab PO SCH (08:56)
--- NOTE | 2017-04-10 09:09 | PCM.PN ---
- General Info Date of Service: 04/10/17 Admission Dx/Problem (Free Text): Admission Diagnosis/Problem Admission Diagnosis/Problem Fever Subjective Update: Follow Up Functional Status: Reports: Pain Controlled, Tolerating Diet, Ambulating, Urinating. Denies: New Symptoms - Review of Systems General: Reports: Weakness. Denies: Fever, Fatigue, Malaise, Chills HEENT: Reports: No Symptoms Pulmonary: Reports: No Symptoms Cardiovascular: Reports: No Symptoms Gastrointestinal: Denies: Abdominal Pain, Decreased Appetite, Nausea, Vomiting Genitourinary: Reports: No Symptoms Musculoskeletal: Reports: Back Pain Skin: Denies: Cyanosis, Jaundice, Mottled, Pallor, Diaphoresis, Bruising, Rash Neurological: Reports: Headache (but better). Denies: Difficulty Walking, Weakness, Gait Disturbance Psychiatric: Denies: Depression, Anxiety, Agitation, Hallucinations, Homicidal Ideation Systems Review Comment:: No significant overnight or acute issues. She slept good. She still has a headache but better now. She feels a little better overall. Her back pain is now at 5/10 on pain scale. Her Hgb is at 6.5. Her WBC and Neutrophils have improved significantly. She has no other complaints. - Patient Data Vitals - Most Recent: Last Vital Signs Temp 36.7 C 04/10/17 08:01 Pulse 86 04/10/17 08:01 Resp 24 H 04/10/17 08:01 BP 130/89 04/10/17 08:01 Pulse Ox 93 L 04/10/17 08:17 Weight - Most Recent: 98.339 kg I&O - Last 24 Hours: Intake & Output 04/09/17 04/10/17 04/10/17 22:59 06:59 14:59 Intake Total 2542 2098 Output Total 800 900 Balance 1742 1198 Lab Results Last 24 Hours: Laboratory Results - last 24 hr 04/09/17 04/10/17 04/10/17 Range/Units 12:40 05:47 05:47 WBC 2.12 L* (3.98-10.04) K/mm3 RBC 1.93 L (3.98-5.22) M/mm3 Hgb 6.5 L* (11.2-15.7) gm/L Hct 20.1 L (34.1-44.9) % MCV 104.1 H (79.4-94.8) fl MCH 33.7 H (25.6-32.2) pg MCHC 32.3 (32.2-35.5) g/dl RDW Std Deviation 66.6 H (36.4-46.3) fL Plt Count 42 L (182-369) K/mm3 MPV 10.0 (9.4-12.3) fl Neut % (Auto) 79.7 H (34.0-71.1) % Lymph % (Auto) 11.8 L (19.3-51.7) % [place] % (Auto) 8.0 (4.7-12.5) % Eos % (Auto) 0 L (0.7-5.8) Baso % (Auto) 0.5 (0.1-1.2) % Neut # (Auto) 1.69 (1.56-6.13) K/mm3 Lymph # (Auto) 0.25 L (1.18-3.74) K/mm3 [place] # (Auto) 0.17 L (0.24-0.36) K/mm3 Eos # (Auto) 0.00 L (0.04-0.36) K/mm3 Baso # (Auto) 0.01 (0.01-0.08) K/mm3 Manual Slide Review Abnormal smear Sodium 133 L (136-145) mEq/L Potassium 4.7 (3.5-5.1) mEq/L Chloride 104 (98-107) mEq/L Carbon Dioxide 22 (21-32) mEq/L Anion Gap 11.7 (5-15) BUN 13 (7-18) mg/dL Creatinine 0.7 (0.55-1.02) mg/dL Est Cr Clr Drug Dosing 96.13 mL/min Estimated GFR (MDRD) > 60 (>60) mL/min BUN/Creatinine Ratio 18.6 H (14-18) Glucose 133 H (74-106) mg/dL Lactic Acid 2.3 H (0.4-2.0) mmol/L Calcium 7.8 L (8.5-10.1) mg/dL Magnesium 2.4 (1.8-2.4) mg/dl C-Reactive Protein 36.2 H* (<1.0) mg/dL 04/10/17 Range/Units 05:47 WBC (3.98-10.04) K/mm3 RBC (3.98-5.22) M/mm3 Hgb (11.2-15.7) gm/L Hct (34.1-44.9) % MCV (79.4-94.8) fl MCH (25.6-32.2) pg MCHC (32.2-35.5) g/dl RDW Std Deviation (36.4-46.3) fL Plt Count (182-369) K/mm3 MPV (9.4-12.3) fl Neut % (Auto) (34.0-71.1) % Lymph % (Auto) (19.3-51.7) % [place] % (Auto) (4.7-12.5) % Eos % (Auto) (0.7-5.8) Baso % (Auto) (0.1-1.2) % Neut # (Auto) (1.56-6.13) K/mm3 Lymph # (Auto) (1.18-3.74) K/mm3 [place] # (Auto) (0.24-0.36) K/mm3 Eos # (Auto) (0.04-0.36) K/mm3 Baso # (Auto) (0.01-0.08) K/mm3 Manual Slide Review Sodium (136-145) mEq/L Potassium (3.5-5.1) mEq/L Chloride (98-107) mEq/L Carbon Dioxide (21-32) mEq/L Anion Gap (5-15) BUN (7-18) mg/dL Creatinine (0.55-1.02) mg/dL Est Cr Clr Drug Dosing mL/min Estimated GFR (MDRD) (>60) mL/min BUN/Creatinine Ratio (14-18) Glucose (74-106) mg/dL Lactic Acid 1.2 (0.4-2.0) mmol/L Calcium (8.5-10.1) mg/dL Magnesium (1.8-2.4) mg/dl C-Reactive Protein (<1.0) mg/dL Med Orders - Current: Current Medications Acetaminophen (Tylenol) 650 mg PO Q4H PRN PRN Reason: Pain (Mild 1-3)/fever Last Admin: 04/08/17 23:36 Dose: 650 mg Acetaminophen/Butalbital/Caffeine (Fioricet 325-50-40 Mg) 2 tab PO Q6H PRN PRN Reason: Headache/Pain Last Admin: 04/10/17 08:55 Dose: 2 tab Albuterol/Ipratropium (Duoneb 3.0-0.5 Mg/3 Ml) 3 ml NEB Q4H PRN PRN Reason: Shortness Of Breath/wheezing Bisacodyl (Dulcolax) 5 mg PO DAILY PRN PRN Reason: Constipation Dexamethasone (Dexamethasone) 2 mg PO BID [facility] Last Admin: 04/10/17 08:56 Dose: 2 mg Docusate Sodium (Colace) 100 mg PO BID PRN PRN Reason: Constipation Folic Acid (Folic Acid) 1 mg PO DAILY [facility] Last Admin: 04/10/17 08:56 Dose: 1 mg Hydralazine HCl (Apresoline) 20 mg IVPUSH Q4H PRN PRN Reason: Hypertension Hydromorphone HCl (Dilaudid) 1 mg IVPUSH Q4H PRN PRN Reason: Pain Last Admin: 04/10/17 08:54 Dose: 1 mg Promethazine HCl 12.5 mg/ (Sodium Chloride) 50.5 mls @ 100 mls/hr IV Q6H PRN PRN Reason: Nausea/Vomiting Cefepime HCl 2 gm/ Premix 50 mls @ 100 mls/hr IV Q8H [facility] Last Admin: 04/10/17 09:05 Dose: 100 mls/hr Sodium Chloride (Normal Saline) 1,000 mls @ 125 mls/hr IV ASDIRECTED [facility] Last Admin: 04/10/17 06:35 Dose: 125 mls/hr Lorazepam (Ativan) 1 mg IV Q6H PRN PRN Reason: Anxiety Last Admin: 04/09/17 21:09 Dose: 1 mg Lorazepam (Ativan) 2 mg IVPUSH Q4H PRN PRN Reason: Seizures Magnesium Hydroxide (Milk Of Magnesia) 30 ml PO Q12H PRN PRN Reason: Constipation Magnesium Sulfate (Pharmacy To Dose - Magnesium Replacement) 1 dose .XX ASDIRECTED [facility] Metoprolol Tartrate (Lopressor) 5 mg IVPUSH Q4H PRN PRN Reason: Tachycardia Last Admin: 04/09/17 00:28 Dose: 5 mg Mometasone Furoate/Formoterol Fumar (Dulera 100-5 Mcg) 0 puff IH BID [facility] Last Admin: 04/10/17 08:17 Dose: 1 puff Ondansetron HCl (Zofran) 4 mg IV Q4H PRN PRN Reason: Nausea/Vomiting Oxycodone HCl (Oxycodone) 5 mg PO Q4H PRN PRN Reason: Pain Last Admin: 04/10/17 08:55 Dose: 5 mg Pantoprazole Sodium (Protonix) 40 mg PO DAILY@0700 [facility] Last Admin: 04/10/17 06:34 Dose: 40 mg Lidocaine/Prilocaine (1 Applic) 0 each TOP ASDIRECTED [facility] Promethazine [ (Phenergan] Plo Gel) 0 each TOP Q6H PRN PRN Reason: Nausea Polyethylene Glycol (Miralax) 17 gm PO DAILY PRN PRN Reason: Constipation Last Admin: 04/08/17 15:33 Dose: 17 gm Potassium Chloride (Pharmacy To Dose - Potassium Replacement) 1 dose .XX ASDIRECTED [facility] Prochlorperazine Maleate (Compazine) 10 mg PO QID PRN PRN Reason: Nausea/Vomiting Scopolamine (Scopolamine) 1 each TRDERM Q72H PRN PRN Reason: Nausea Last Admin: 04/08/17 12:48 Dose: 1 each Senna/Docusate Sodium (Senna Plus) 1 tab PO BID PRN PRN Reason: Constipation Last Admin: 04/08/17 15:33 Dose: 1 tab Sertraline HCl (Zoloft) 50 mg PO DAILY [facility] Last Admin: 04/10/17 08:56 Dose: 50 mg Temazepam (Restoril) 15 mg PO BEDTIME PRN PRN Reason: Sleep Last Admin: 04/09/17 21:01 Dose: 15 mg Discontinued Medications Hydrocodone Bitart/Acetaminophen ([place] 325-5 Mg) 1 tab PO Q4H PRN PRN Reason: Pain (moderate 4-6) Last Admin: 04/08/17 12:49 Dose: 1 tab Bisacodyl (Dulcolax) 10 mg RECTAL ONETIME ONE Stop: 04/08/17 15:00 Last Admin: 04/08/17 15:13 Dose: 10 mg Dronabinol (Marinol) 2.5 mg PO TIDAC [facility] Last Admin: 04/08/17 21:41 Dose: Not Given Fentanyl (Duragesic) 12 mcg TRDERM Q72H [facility] Fentanyl (Duragesic) 25 mcg TRDERM Q72H [facility] Last Admin: 04/08/17 21:45 Dose: Not Given Hydromorphone HCl (Dilaudid) 1 mg IVPUSH ONETIME ONE Stop: 04/08/17 06:08 Last Admin: 04/08/17 07:49 Dose: Not Given Hydromorphone HCl (Dilaudid) Confirm Administered Dose 1 mg .ROUTE .STK-MED ONE Stop: 04/08/17 06:20 Last Admin: 04/08/17 06:24 Dose: Not Given Hydromorphone HCl (Dilaudid) 1 mg IVPUSH ONETIME ONE Stop: 04/08/17 06:17 Last Admin: 04/08/17 06:17 Dose: 1 mg Hydromorphone HCl (Dilaudid) 1 mg IVPUSH ONETIME ONE Stop: 04/08/17 08:00 Last Admin: 04/08/17 08:13 Dose: Not Given Hydromorphone HCl (Dilaudid) 1 mg IVPUSH ONETIME ONE Stop: 04/08/17 08:07 Last Admin: 04/08/17 08:11 Dose: 1 mg Sodium Chloride (Normal Saline) 1,000 mls @ 999 mls/hr IV ONETIME ONE Stop: 04/08/17 08:31 Last Admin: 04/08/17 07:50 Dose: 999 mls/hr Cefepime HCl 2 gm/ Premix 50 mls @ 100 mls/hr IV ONETIME ONE Stop: 04/08/17 08:52 Last Admin: 04/08/17 09:07 Dose: 100 mls/hr Sodium Chloride (Normal Saline) 1,000 mls @ 150 mls/hr IV ASDIRECTED [facility] Last Admin: 04/08/17 09:09 Dose: 150 mls/hr Sodium Chloride (Normal Saline) 2,000 mls @ 999.029 mls/hr IV ONETIME ONE Stop: 04/08/17 16:03 Last Admin: 04/08/17 15:38 Dose: 999.029 mls/hr Magnesium Sulfate 4 gm/ Premix 100 mls @ 50 mls/hr IV ONETIME ONE Stop: 04/09/17 13:29 Last Admin: 04/09/17 11:36 Dose: 50 mls/hr Miscellaneous Information (Remove Patch) 0 ea TRDERM Q72H [facility] Ondansetron HCl (Zofran) 4 mg IVPUSH ONETIME ONE Stop: 04/08/17 06:23 Last Admin: 04/08/17 08:37 Dose: Not Given Ondansetron HCl (Zofran) Confirm Administered Dose 4 mg .ROUTE .STK-MED ONE Stop: 04/08/17 09:58 Last Admin: 04/08/17 09:48 Dose: 4 mg - Exam General: Alert, Oriented, Cooperative, No Acute Distress, Other (Obese and pale looking) HEENT: Pupils Equal, Pupils Reactive, EOMI, Mucous Membr. Moist/[place] Neck: Supple, Trachea Midline, No JVD Lungs: Clear to Auscultation, Normal Respiratory Effort Cardiovascular: Regular Rate, Regular Rhythm GI/Abdominal Exam: Normal Bowel Sounds, Soft, Non-Tender, No Organomegaly, No Distention, No Abnormal Bruit, No Mass, Other (Obese) (Female) Exam: Deferred Back Exam: Normal Inspection, Decreased Range of Motion Extremities: Normal Inspection, Normal Range of Motion, Non-Tender, No Pedal Edema, Normal Capillary Refill Peripheral Pulses: 2+: Dorsalis Pedis (L), Dorsalis Pedis (R) Skin: Intact Neurological: No New Focal Deficit Psy/Mental Status: Alert, Normal Affect, Depressed. No: Suicidal Ideation - Problem List Review Problem List Initiated/Reviewed/Updated: Yes - My Orders Last 24 Hours: My Active Orders 04/09/17 09:00 Sertraline [Zoloft] 50 mg PO DAILY 04/09/17 21:26 Acetaminophen/Butalbital/Caff [Fioricet 325-50-40 MG] 2 tab PO Q6H PRN 04/10/17 09:00 Folic Acid 1 mg PO DAILY 04/10/17 09:08 Notify Provider Consults [RC] ASDIRECTED Consult to Physician [CONS] Routine 04/11/17 05:11 BASIC METABOLIC PANEL,BMP [CHEM] AM C-REACTIVE PROTEIN [CHEM] AM MAGNESIUM [CHEM] AM 04/12/17 05:11 BASIC METABOLIC PANEL,BMP [CHEM] AM C-REACTIVE PROTEIN [CHEM] AM MAGNESIUM [CHEM] AM 04/13/17 05:11 BASIC METABOLIC PANEL,BMP [CHEM] AM C-REACTIVE PROTEIN [CHEM] AM MAGNESIUM [CHEM] AM 04/14/17 05:11 BASIC METABOLIC PANEL,BMP [CHEM] AM C-REACTIVE PROTEIN [CHEM] AM MAGNESIUM [CHEM] AM - Plan Plan:: Assessment/Plan: Acute: Bacteremia - 2/2 Staph Aureus - Likely from her port-a-cath - Consult Dr. Beatty for access line removal - Continue current IV - Repeat blood culture in AM Pancytopenia - 2/2 Metastatic Disease - S/p Chemo and Radiation Therapy - Consulted Dr. Nichole by ED provider: He recommends admission and infusion of IV Cefepime 2 gram IV Q8H - Scheduled for infusion therapy today but cancelled due to low platelet levels - Hgb 9.5 --> now 7.8 (possibly dilutional since she received about 2.5 L of NS)--> 6.5 ( needs at least 2 units of PRBC for transfusion) - Continue current IV Abx; no changes until we get results of blood culture Generalized Weakness - Cancer and Chemotherapy related - Continue PT/OT Headache, Improved - Acute on Chronic - 2/2 Metastatic Brain Disease - Has had 12 tumors with 10 session of radiation therapy - Recent MRI < 4 weeks ago in [place] - Continue Dexamethasone - PRN Fioricet this may not help much - She is aware this is due to her brain cancer Folate Deficiency - Folate level of 5.1 - Replete with folic acid Resolved: S/p Neutropenia - 2/2 underlying Malignancy and recent chemotherapy - She has no fever - WBC is 1.12--> 2.12 and Neutrophil # 0.73--> 1.47--> 1.69 - Off Isolation Precautions - Limit visitations from family or friends S/p Hypomagnesemia - Mg 1.3--> 2.4 - 2/2 Inadequate intake - Replete and monitor S/p Lactic Acidosis - LA 2.9 --> 2.3 --> 1.2 - She is adequately hydrating at NS 125 cc/hr; will up rate to 150 cc/hr - Her pressures have improved significantly Resolved: S/p Hypotension - Documented BP of 89/53 mmHg - Sepsis risk due to immuno-suppressed state - Will give 2.5 L NS bolus - LA: 2.9 --> 2.3 S/p Dysuria - UA suggestive of UTI - UA Cx: Mixed Mariah - Continue current IV Abx Chronic: Impaired Vision Asthma 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 Beatty consult Additional orders as above Code status: 1 Prognosis is very poor with metastatic brain and lung disease
[2017-04-10] MEDS ORDERED: diphenhydrAMINE 50 MG/ML SDV IV ONE (09:15)
--- NOTE | 2017-04-10 09:50 | PCM.CONSN ---
- General Info Date of Service: 04/10/17 - Patient Data Vitals - Most Recent: Last Vital Signs Temp 98.1 F 04/10/17 08:01 Pulse 86 04/10/17 08:01 Resp 24 H 04/10/17 08:01 BP 130/89 04/10/17 08:01 Pulse Ox 93 L 04/10/17 08:17 Weight - Most Recent: 98.339 kg I&O - Last 24 Hours: Intake & Output 04/09/17 04/10/17 04/10/17 23:59 07:59 15:59 Intake Total 2542 2098 Output Total 800 900 Balance 1742 1198 Lab Results Last 24 Hours: Laboratory Results - last 24 hr 04/09/17 04/10/17 04/10/17 Range/Units 12:40 05:47 05:47 WBC 2.12 L* (3.98-10.04) K/mm3 RBC 1.93 L (3.98-5.22) M/mm3 Hgb 6.5 L* (11.2-15.7) gm/L Hct 20.1 L (34.1-44.9) % MCV 104.1 H (79.4-94.8) fl MCH 33.7 H (25.6-32.2) pg MCHC 32.3 (32.2-35.5) g/dl RDW Std Deviation 66.6 H (36.4-46.3) fL Plt Count 42 L (182-369) K/mm3 MPV 10.0 (9.4-12.3) fl Neut % (Auto) 79.7 H (34.0-71.1) % Lymph % (Auto) 11.8 L (19.3-51.7) % [place] % (Auto) 8.0 (4.7-12.5) % Eos % (Auto) 0 L (0.7-5.8) Baso % (Auto) 0.5 (0.1-1.2) % Neut # (Auto) 1.69 (1.56-6.13) K/mm3 Lymph # (Auto) 0.25 L (1.18-3.74) K/mm3 [place] # (Auto) 0.17 L (0.24-0.36) K/mm3 Eos # (Auto) 0.00 L (0.04-0.36) K/mm3 Baso # (Auto) 0.01 (0.01-0.08) K/mm3 Manual Slide Review Abnormal smear Sodium 133 L (136-145) mEq/L Potassium 4.7 (3.5-5.1) mEq/L Chloride 104 (98-107) mEq/L Carbon Dioxide 22 (21-32) mEq/L Anion Gap 11.7 (5-15) BUN 13 (7-18) mg/dL Creatinine 0.7 (0.55-1.02) mg/dL Est Cr Clr Drug Dosing 96.13 mL/min Estimated GFR (MDRD) > 60 (>60) mL/min BUN/Creatinine Ratio 18.6 H (14-18) Glucose 133 H (74-106) mg/dL Lactic Acid 2.3 H (0.4-2.0) mmol/L Calcium 7.8 L (8.5-10.1) mg/dL Magnesium 2.4 (1.8-2.4) mg/dl C-Reactive Protein 36.2 H* (<1.0) mg/dL 04/10/17 Range/Units 05:47 WBC (3.98-10.04) K/mm3 RBC (3.98-5.22) M/mm3 Hgb (11.2-15.7) gm/L Hct (34.1-44.9) % MCV (79.4-94.8) fl MCH (25.6-32.2) pg MCHC (32.2-35.5) g/dl RDW Std Deviation (36.4-46.3) fL Plt Count (182-369) K/mm3 MPV (9.4-12.3) fl Neut % (Auto) (34.0-71.1) % Lymph % (Auto) (19.3-51.7) % [place] % (Auto) (4.7-12.5) % Eos % (Auto) (0.7-5.8) Baso % (Auto) (0.1-1.2) % Neut # (Auto) (1.56-6.13) K/mm3 Lymph # (Auto) (1.18-3.74) K/mm3 [place] # (Auto) (0.24-0.36) K/mm3 Eos # (Auto) (0.04-0.36) K/mm3 Baso # (Auto) (0.01-0.08) K/mm3 Manual Slide Review Sodium (136-145) mEq/L Potassium (3.5-5.1) mEq/L Chloride (98-107) mEq/L Carbon Dioxide (21-32) mEq/L Anion Gap (5-15) BUN (7-18) mg/dL Creatinine (0.55-1.02) mg/dL Est Cr Clr Drug Dosing mL/min Estimated GFR (MDRD) (>60) mL/min BUN/Creatinine Ratio (14-18) Glucose (74-106) mg/dL Lactic Acid 1.2 (0.4-2.0) mmol/L Calcium (8.5-10.1) mg/dL Magnesium (1.8-2.4) mg/dl C-Reactive Protein (<1.0) mg/dL Med Orders - Current: Current Medications Acetaminophen (Tylenol) 650 mg PO Q4H PRN PRN Reason: Pain (Mild 1-3)/fever Last Admin: 04/08/17 23:36 Dose: 650 mg Acetaminophen/Butalbital/Caffeine (Fioricet 325-50-40 Mg) 2 tab PO Q6H PRN PRN Reason: Headache/Pain Last Admin: 04/10/17 08:55 Dose: 2 tab Albuterol/Ipratropium (Duoneb 3.0-0.5 Mg/3 Ml) 3 ml NEB Q4H PRN PRN Reason: Shortness Of Breath/wheezing Bisacodyl (Dulcolax) 5 mg PO DAILY PRN PRN Reason: Constipation Dexamethasone (Dexamethasone) 2 mg PO BID [facility] Last Admin: 04/10/17 08:56 Dose: 2 mg Docusate Sodium (Colace) 100 mg PO BID PRN PRN Reason: Constipation Folic Acid (Folic Acid) 1 mg PO DAILY [facility] Last Admin: 04/10/17 08:56 Dose: 1 mg Hydralazine HCl (Apresoline) 20 mg IVPUSH Q4H PRN PRN Reason: Hypertension Hydromorphone HCl (Dilaudid) 1 mg IVPUSH Q4H PRN PRN Reason: Pain Last Admin: 04/10/17 08:54 Dose: 1 mg Promethazine HCl 12.5 mg/ (Sodium Chloride) 50.5 mls @ 100 mls/hr IV Q6H PRN PRN Reason: Nausea/Vomiting Cefepime HCl 2 gm/ Premix 50 mls @ 100 mls/hr IV Q8H [facility] Last Admin: 04/10/17 09:05 Dose: 100 mls/hr Sodium Chloride (Normal Saline) 1,000 mls @ 125 mls/hr IV ASDIRECTED [facility] Last Admin: 04/10/17 06:35 Dose: 125 mls/hr Lorazepam (Ativan) 1 mg IV Q6H PRN PRN Reason: Anxiety Last Admin: 04/09/17 21:09 Dose: 1 mg Lorazepam (Ativan) 2 mg IVPUSH Q4H PRN PRN Reason: Seizures Magnesium Hydroxide (Milk Of Magnesia) 30 ml PO Q12H PRN PRN Reason: Constipation Magnesium Sulfate (Pharmacy To Dose - Magnesium Replacement) 1 dose .XX ASDIRECTED [facility] Metoprolol Tartrate (Lopressor) 5 mg IVPUSH Q4H PRN PRN Reason: Tachycardia Last Admin: 04/09/17 00:28 Dose: 5 mg Mometasone Furoate/Formoterol Fumar (Dulera 100-5 Mcg) 0 puff IH BID [facility] Last Admin: 04/10/17 08:17 Dose: 1 puff Ondansetron HCl (Zofran) 4 mg IV Q4H PRN PRN Reason: Nausea/Vomiting Oxycodone HCl (Oxycodone) 5 mg PO Q4H PRN PRN Reason: Pain Last Admin: 04/10/17 08:55 Dose: 5 mg Pantoprazole Sodium (Protonix) 40 mg PO DAILY@0700 [facility] Last Admin: 04/10/17 06:34 Dose: 40 mg Lidocaine/Prilocaine (1 Applic) 0 each TOP ASDIRECTED [facility] Promethazine [ (Phenergan] Plo Gel) 0 each TOP Q6H PRN PRN Reason: Nausea Polyethylene Glycol (Miralax) 17 gm PO DAILY PRN PRN Reason: Constipation Last Admin: 04/08/17 15:33 Dose: 17 gm Potassium Chloride (Pharmacy To Dose - Potassium Replacement) 1 dose .XX ASDIRECTED [facility] Prochlorperazine Maleate (Compazine) 10 mg PO QID PRN PRN Reason: Nausea/Vomiting Scopolamine (Scopolamine) 1 each TRDERM Q72H PRN PRN Reason: Nausea Last Admin: 04/08/17 12:48 Dose: 1 each Senna/Docusate Sodium (Senna Plus) 1 tab PO BID PRN PRN Reason: Constipation Last Admin: 04/08/17 15:33 Dose: 1 tab Sertraline HCl (Zoloft) 50 mg PO DAILY [facility] Last Admin: 04/10/17 08:56 Dose: 50 mg Temazepam (Restoril) 15 mg PO BEDTIME PRN PRN Reason: Sleep Last Admin: 04/09/17 21:01 Dose: 15 mg Discontinued Medications Hydrocodone Bitart/Acetaminophen ([place] 325-5 Mg) 1 tab PO Q4H PRN PRN Reason: Pain (moderate 4-6) Last Admin: 04/08/17 12:49 Dose: 1 tab Bisacodyl (Dulcolax) 10 mg RECTAL ONETIME ONE Stop: 04/08/17 15:00 Last Admin: 04/08/17 15:13 Dose: 10 mg Diphenhydramine HCl (Benadryl) 25 mg IV ONETIME ONE Stop: 04/10/17 09:16 Dronabinol (Marinol) 2.5 mg PO TIDAC [facility] Last Admin: 04/08/17 21:41 Dose: Not Given Fentanyl (Duragesic) 12 mcg TRDERM Q72H [facility] Fentanyl (Duragesic) 25 mcg TRDERM Q72H [facility] Last Admin: 04/08/17 21:45 Dose: Not Given Hydromorphone HCl (Dilaudid) 1 mg IVPUSH ONETIME ONE Stop: 04/08/17 06:08 Last Admin: 04/08/17 07:49 Dose: Not Given Hydromorphone HCl (Dilaudid) Confirm Administered Dose 1 mg .ROUTE .STK-MED ONE Stop: 04/08/17 06:20 Last Admin: 04/08/17 06:24 Dose: Not Given Hydromorphone HCl (Dilaudid) 1 mg IVPUSH ONETIME ONE Stop: 04/08/17 06:17 Last Admin: 04/08/17 06:17 Dose: 1 mg Hydromorphone HCl (Dilaudid) 1 mg IVPUSH ONETIME ONE Stop: 04/08/17 08:00 Last Admin: 04/08/17 08:13 Dose: Not Given Hydromorphone HCl (Dilaudid) 1 mg IVPUSH ONETIME ONE Stop: 04/08/17 08:07 Last Admin: 04/08/17 08:11 Dose: 1 mg Sodium Chloride (Normal Saline) 1,000 mls @ 999 mls/hr IV ONETIME ONE Stop: 04/08/17 08:31 Last Admin: 04/08/17 07:50 Dose: 999 mls/hr Cefepime HCl 2 gm/ Premix 50 mls @ 100 mls/hr IV ONETIME ONE Stop: 04/08/17 08:52 Last Admin: 04/08/17 09:07 Dose: 100 mls/hr Sodium Chloride (Normal Saline) 1,000 mls @ 150 mls/hr IV ASDIRECTED [facility] Last Admin: 04/08/17 09:09 Dose: 150 mls/hr Sodium Chloride (Normal Saline) 2,000 mls @ 999.029 mls/hr IV ONETIME ONE Stop: 04/08/17 16:03 Last Admin: 04/08/17 15:38 Dose: 999.029 mls/hr Magnesium Sulfate 4 gm/ Premix 100 mls @ 50 mls/hr IV ONETIME ONE Stop: 04/09/17 13:29 Last Admin: 04/09/17 11:36 Dose: 50 mls/hr Miscellaneous Information (Remove Patch) 0 ea TRDERM Q72H [facility] Ondansetron HCl (Zofran) 4 mg IVPUSH ONETIME ONE Stop: 04/08/17 06:23 Last Admin: 04/08/17 08:37 Dose: Not Given Ondansetron HCl (Zofran) Confirm Administered Dose 4 mg .ROUTE .STK-MED ONE Stop: 04/08/17 09:58 Last Admin: 04/08/17 09:48 Dose: 4 mg Consult PN Assessment/Plan Procedures: Procedures ASSAY OF LACTIC ACID (10/18/16) BLOOD CULTURE FOR BACTERIA (10/18/16) C-REACTIVE PROTEIN (10/18/16) CHEST X-RAY 2VW FRONTAL&LATL (10/18/16) CO/MEMBANE DIFFUSE CAPACITY (02/26/17) COMPLETE CBC W/AUTO DIFF WBC (10/18/16) COMPREHEN METABOLIC PANEL (10/18/16) CT THORAX W/O & W/DYE (10/18/16) CULTURE SCREEN ONLY (11/29/16) EMERGENCY DEPT VISIT (10/18/16) EVALUATION OF WHEEZING (02/26/17) HYDRATE IV INFUSION ADD-ON (10/18/16) ROUTINE VENIPUNCTURE (10/18/16) THER/PROPH/DIAG IV INF INIT (10/18/16) URINE TEST (10/18/16) Problem List Initiated/Reviewed/Updated: Yes My Orders Last 24 Hours: surgical consulst dictated SALVATORE
[2017-04-10] MEDS ORDERED: Lidocaine 1% with EPINEPHrine 1:100,000 20 ML MDV ONE ×2 (10:00→10:10)
--- NOTE | 2017-04-10 11:19 | PCM.OPNOTE ---
- General Post-Op/Procedure Note Date of Surgery/Procedure: 04/10/17 Operative Procedure(s): removal of prota cath Pre Op Diagnosis: metastatic cancer with positive blood cultures Post-Op Diagnosis: Same Anesthesia Technique: Local, MAC Primary Surgeon: Cisco Beatty EBL in mLs: 0 Complications: None Condition: Good Free Text/Narrative:: Intake & Output 04/09/17 04/10/17 04/10/17 23:59 07:59 15:59 Intake Total 0042 8578 Output Total 800 900 Balance 1742 5746
[2017-04-10] MEDS: cefTRIAXone 1 GM in Dextrose 5% in Water 100 ML IV SCH ×2 (12:23)
--- NOTE | 2017-04-10 12:42 | OR ---
DATE OF OPERATION: 04/10/2017 SURGEON: Cisco Beatty MD PREOPERATIVE DIAGNOSIS: Metastatic cancer, compromised host. POSTOPERATIVE DIAGNOSIS: Metastatic cancer, compromised host. OPERATION PERFORMED: Removal of left subclavian port. ANESTHESIA: Done under local anesthetic, 1% Xylocaine with epinephrine. DESCRIPTION OF PROCEDURE: The patient was taken to the endoscopy room, placed in a supine position, and connected to monitoring equipment. Port was identified in the left subclavian area, and the skin over the port was prepped with Betadine and draped off in a sterile fashion. Xylocaine 1% was infiltrated in the skin, in the deeper tissues. A transverse incision was made using the previous skin incision, and the port was identified and port pocket entered. Some fluid was noted in the port pocket, and this was cultured. The sutures that were keeping the port in the pocket were then removed and a pursestring suture of 4-0 Vicryl suture was placed around the exit of the port. The port was removed, and the 4-0 Vicryl suture was then sutured closed. There was no material noted at the tip of the port, except around the outside. There was some exudate there, and this was then cut off and put in a Renan dish and sent for culture. The port pocket was then closed with a running 4-0 Vicryl suture. The subcuticular tissue was then closed with interrupted 4-0 Vicryl suture and then the skin of the port was closed with subdermal 4-0 Monocryl. Steri-Strips and sterile dressing were placed. The patient tolerated the procedure and was sent to recovery room in a stable condition. Estimated blood loss was 0 mL. ESTIMATED BLOOD LOSS: MMODAL /[id number]
[2017-04-10] MEDS: Temazepam 15 MG Cap PO PRN (22:32)
[2017-04-10] MEDS: LORazepam 2 MG/ML MDV IV PRN (22:37)
[2017-04-11] MEDS: HYDROmorphone 0.5 MG/0.5 ML SYRINGE IVPUSH PRN ×3 (03:37→22:00)
[2017-04-11] MEDS: oxyCODONE 5 MG Tab PO PRN ×3 (03:41→21:56)
[2017-04-11] MEDS: Pantoprazole 40 MG Tab.CR PO SCH (06:56)
--- NOTE | 2017-04-11 06:58 | CONS ---
CONSULTING PHYSICIAN: Cisco Beatty MD DATE OF CONSULTATION: 04/10/2017 REPORT TITLE: Surgical Consultation BODY AFTER REPORT TITLE: HISTORY OF PRESENT ILLNESS: This is a 41-year-old female who came in to the emergency room on the with generalized weakness, back pain, headache, and she was concerned to have a UTI. She had a workup in the emergency room and was admitted with a number of problems due to her metastatic cancer. She has cervical cancer metastasized to the lung and the brain and has had radiation treatment and chemotherapy and was pancytopenic. She was felt to be septic, and blood cultures were drawn. She was started on antibiotics. The cultures were drawn from the antecubital fossa. She was also pancytopenic with platelets in the 47, hypotensive, having some dysuria and headache. The patient's symptoms improved with antibiotic, and her workup showed a positive blood culture showing Staphylococcus aureus. I was called to consider removal of the port. She had this port placed approximately 2 months ago after using a PICC line, which did not work well. PAST MEDICAL HISTORY: As stated above. MEDICATIONS: Per medication reconciliation form. REVIEW OF SYSTEMS: No chest pain, shortness of breath, cough, hoarseness, wheezing, fainting, weakness, numbness, or convulsions. ALLERGIES: Sulfa, trimethoprim, Cymbalta, and fentanyl. SOCIAL HISTORY: No smoking. No drinking at this time. PHYSICAL EXAMINATION: GENERAL: An alert, cooperative female. EYES: Sclerae are white. Extraocular muscle motion. VITAL SIGNS: The pulse is 86, temperature 94, and blood pressure 122/77. NECK: Supple. LUNGS: Clear. Port is in the left subclavian position, free of any tenderness or erythema. ABDOMEN: Soft. EXTREMITIES: Lower extremities with no angulation or deformities, as are the upper extremities. SKIN: Warm and dry. NEUROLOGIC: Has some slight memory problem and some slight tendency to scan her speech. No sensorineural deficit. ASSESSMENT: Septic episode with positive Staphylococcus aureus blood cultures. Possible source is the port. Discussed this with the oncologist in [place], Dr. Nichole, and she agrees we should remove it. Discussed this with the patient, risks and complications. She understands and consents. We will do it under a local anesthetic. MMODAL /[id number]
--- NOTE | 2017-04-11 07:12 | PCM.PN ---
- General Info Date of Service: 04/11/17 Admission Dx/Problem (Free Text): Admission Diagnosis/Problem Admission Diagnosis/Problem Fever Subjective Update: Follow Up Functional Status: Reports: Pain Controlled, Tolerating Diet, Ambulating, Urinating - Review of Systems General: Denies: Fever, Weakness, Fatigue, Malaise, Chills HEENT: Reports: Headaches (but better ) Pulmonary: Denies: Shortness of Breath Cardiovascular: Denies: Chest Pain, Palpitations, Dyspnea on Exertion, Edema, Lightheadedness Gastrointestinal: Reports: Flatus. Denies: Abdominal Pain, Constipation, Decreased Appetite, Diarrhea, Difficulty Swallowing, Nausea, Vomiting Genitourinary: Reports: No Symptoms Musculoskeletal: Reports: No Symptoms Skin: Denies: Mottled, Pallor, Diaphoresis Neurological: Denies: Confusion, Tingling, Difficulty Walking, Gait Disturbance Psychiatric: Denies: Depression, Anxiety, Agitation, Hallucinations Systems Review Comment:: No significant overnight or acute issues. She feels pretty good and slept good last night. Her WBC is is now back to normal. Her CRP is down to 18.9 from 36.2. Her pain is controlled. Her Mg level is low at 1.7. She has no new complaints. - Patient Data Vitals - Most Recent: Last Vital Signs Temp 36.6 C 04/11/17 03:53 Pulse 68 04/11/17 03:53 Resp 16 04/11/17 03:53 BP 122/92 H 04/11/17 03:53 Pulse Ox 95 04/11/17 03:53 Weight - Most Recent: 99.337 kg I&O - Last 24 Hours: Intake & Output 04/10/17 04/11/17 04/11/17 22:59 06:59 14:59 Intake Total 1290 800 Output Total 1250 1325 Balance 40 -525 Lab Results Last 24 Hours: Laboratory Results - last 24 hr 04/10/17 04/10/17 04/10/17 Range/Units 05:47 05:47 17:11 WBC (3.98-10.04) K/mm3 RBC (3.98-5.22) M/mm3 Hgb 9.3 L (11.2-15.7) gm/L Hct 27.7 L (34.1-44.9) % MCV (79.4-94.8) fl MCH (25.6-32.2) pg MCHC (32.2-35.5) g/dl RDW Std Deviation (36.4-46.3) fL Plt Count (182-369) K/mm3 MPV (9.4-12.3) fl Neut % (Auto) (34.0-71.1) % Lymph % (Auto) (19.3-51.7) % Humphreys % (Auto) (4.7-12.5) % Eos % (Auto) (0.7-5.8) Baso % (Auto) (0.1-1.2) % Neut # (Auto) (1.56-6.13) K/mm3 Lymph # (Auto) (1.18-3.74) K/mm3 Humphreys # (Auto) (0.24-0.36) K/mm3 Eos # (Auto) (0.04-0.36) K/mm3 Baso # (Auto) (0.01-0.08) K/mm3 C-Reactive Protein 36.2 H* (<1.0) mg/dL Blood Type O POSITIVE Gel Antibody Screen Negative Crossmatch See Detail 04/11/17 Range/Units 05:30 WBC 4.16 (3.98-10.04) K/mm3 RBC 2.90 L (3.98-5.22) M/mm3 Hgb 9.3 L (11.2-15.7) gm/L Hct 28.1 L (34.1-44.9) % MCV 96.9 H (79.4-94.8) fl MCH 32.1 (25.6-32.2) pg MCHC 33.1 (32.2-35.5) g/dl RDW Std Deviation 65.1 H (36.4-46.3) fL Plt Count 49 L (182-369) K/mm3 MPV 9.9 (9.4-12.3) fl Neut % (Auto) 77.0 H (34.0-71.1) % Lymph % (Auto) 15.6 L (19.3-51.7) % Humphreys % (Auto) 6.7 (4.7-12.5) % Eos % (Auto) 0 L (0.7-5.8) Baso % (Auto) 0.2 (0.1-1.2) % Neut # (Auto) 3.20 (1.56-6.13) K/mm3 Lymph # (Auto) 0.65 L (1.18-3.74) K/mm3 Humphreys # (Auto) 0.28 (0.24-0.36) K/mm3 Eos # (Auto) 0.00 L (0.04-0.36) K/mm3 Baso # (Auto) 0.01 (0.01-0.08) K/mm3 C-Reactive Protein (<1.0) mg/dL Blood Type Gel Antibody Screen Crossmatch Med Orders - Current: Current Medications Acetaminophen (Tylenol) 650 mg PO Q4H PRN PRN Reason: Pain (Mild 1-3)/fever Last Admin: 04/08/17 23:36 Dose: 650 mg Acetaminophen/Butalbital/Caffeine (Fioricet 325-50-40 Mg) 2 tab PO Q6H PRN PRN Reason: Headache/Pain Last Admin: 04/10/17 08:55 Dose: 2 tab Albuterol/Ipratropium (Duoneb 3.0-0.5 Mg/3 Ml) 3 ml NEB Q4H PRN PRN Reason: Shortness Of Breath/wheezing Bisacodyl (Dulcolax) 5 mg PO DAILY PRN PRN Reason: Constipation Dexamethasone (Dexamethasone) 2 mg PO BID [facility] Last Admin: 04/10/17 22:31 Dose: 2 mg Docusate Sodium (Colace) 100 mg PO BID PRN PRN Reason: Constipation Folic Acid (Folic Acid) 1 mg PO DAILY [facility] Last Admin: 04/10/17 08:56 Dose: 1 mg Hydralazine HCl (Apresoline) 20 mg IVPUSH Q4H PRN PRN Reason: Hypertension Hydromorphone HCl (Dilaudid) 1 mg IVPUSH Q4H PRN PRN Reason: Pain Last Admin: 04/11/17 03:37 Dose: 1 mg Promethazine HCl 12.5 mg/ (Sodium Chloride) 50.5 mls @ 100 mls/hr IV Q6H PRN PRN Reason: Nausea/Vomiting Ceftriaxone Sodium 1 gm/ (Dextrose/Water) 100 mls @ 200 mls/hr IV Q24H [facility] Last Admin: 04/10/17 12:23 Dose: 200 mls/hr Lorazepam (Ativan) 1 mg IV Q6H PRN PRN Reason: Anxiety Last Admin: 04/10/17 22:37 Dose: 1 mg Lorazepam (Ativan) 2 mg IVPUSH Q4H PRN PRN Reason: Seizures Magnesium Hydroxide (Milk Of Magnesia) 30 ml PO Q12H PRN PRN Reason: Constipation Magnesium Sulfate (Pharmacy To Dose - Magnesium Replacement) 1 dose .XX ASDIRECTED [facility] Metoprolol Tartrate (Lopressor) 5 mg IVPUSH Q4H PRN PRN Reason: Tachycardia Last Admin: 04/09/17 00:28 Dose: 5 mg Mometasone Furoate/Formoterol Fumar (Dulera 100-5 Mcg) 0 puff IH BID [facility] Last Admin: 04/10/17 21:21 Dose: 1 puff Ondansetron HCl (Zofran) 4 mg IV Q4H PRN PRN Reason: Nausea/Vomiting Oxycodone HCl (Oxycodone) 5 mg PO Q4H PRN PRN Reason: Pain Last Admin: 04/11/17 03:41 Dose: 5 mg Pantoprazole Sodium (Protonix) 40 mg PO DAILY@0700 [facility] Last Admin: 04/11/17 06:56 Dose: 40 mg Lidocaine/Prilocaine (1 Applic) 0 each TOP ASDIRECTED [facility] Promethazine [ (Phenergan] Plo Gel) 0 each TOP Q6H PRN PRN Reason: Nausea Polyethylene Glycol (Miralax) 17 gm PO DAILY PRN PRN Reason: Constipation Last Admin: 04/08/17 15:33 Dose: 17 gm Potassium Chloride (Pharmacy To Dose - Potassium Replacement) 1 dose .XX ASDIRECTED [facility] Prochlorperazine Maleate (Compazine) 10 mg PO QID PRN PRN Reason: Nausea/Vomiting Scopolamine (Scopolamine) 1 each TRDERM Q72H PRN PRN Reason: Nausea Last Admin: 04/08/17 12:48 Dose: 1 each Senna/Docusate Sodium (Senna Plus) 1 tab PO BID PRN PRN Reason: Constipation Last Admin: 04/08/17 15:33 Dose: 1 tab Sertraline HCl (Zoloft) 50 mg PO DAILY [facility] Last Admin: 04/10/17 08:56 Dose: 50 mg Temazepam (Restoril) 15 mg PO BEDTIME PRN PRN Reason: Sleep Last Admin: 04/10/17 22:32 Dose: 15 mg Discontinued Medications Hydrocodone Bitart/Acetaminophen ([place] 325-5 Mg) 1 tab PO Q4H PRN PRN Reason: Pain (moderate 4-6) Last Admin: 04/08/17 12:49 Dose: 1 tab Bisacodyl (Dulcolax) 10 mg RECTAL ONETIME ONE Stop: 04/08/17 15:00 Last Admin: 04/08/17 15:13 Dose: 10 mg Diphenhydramine HCl (Benadryl) 25 mg IV ONETIME ONE Stop: 04/10/17 09:16 Last Admin: 04/10/17 10:32 Dose: 25 mg Dronabinol (Marinol) 2.5 mg PO TIDAC NIRANJAN Last Admin: 04/08/17 21:41 Dose: Not Given Fentanyl (Duragesic) 12 mcg TRDERM Q72H NIRANJAN Fentanyl (Duragesic) 25 mcg TRDERM Q72H NIRANJAN Last Admin: 04/08/17 21:45 Dose: Not Given Hydromorphone HCl (Dilaudid) 1 mg IVPUSH ONETIME ONE Stop: 04/08/17 06:08 Last Admin: 04/08/17 07:49 Dose: Not Given Hydromorphone HCl (Dilaudid) Confirm Administered Dose 1 mg .ROUTE .STK-MED ONE Stop: 04/08/17 06:20 Last Admin: 04/08/17 06:24 Dose: Not Given Hydromorphone HCl (Dilaudid) 1 mg IVPUSH ONETIME ONE Stop: 04/08/17 06:17 Last Admin: 04/08/17 06:17 Dose: 1 mg Hydromorphone HCl (Dilaudid) 1 mg IVPUSH ONETIME ONE Stop: 04/08/17 08:00 Last Admin: 04/08/17 08:13 Dose: Not Given Hydromorphone HCl (Dilaudid) 1 mg IVPUSH ONETIME ONE Stop: 04/08/17 08:07 Last Admin: 04/08/17 08:11 Dose: 1 mg Sodium Chloride (Normal Saline) 1,000 mls @ 999 mls/hr IV ONETIME ONE Stop: 04/08/17 08:31 Last Admin: 04/08/17 07:50 Dose: 999 mls/hr Cefepime HCl 2 gm/ Premix 50 mls @ 100 mls/hr IV ONETIME ONE Stop: 04/08/17 08:52 Last Admin: 04/08/17 09:07 Dose: 100 mls/hr Sodium Chloride (Normal Saline) 1,000 mls @ 150 mls/hr IV ASDIRECTED [facility] Last Admin: 04/08/17 09:09 Dose: 150 mls/hr Cefepime HCl 2 gm/ Premix 50 mls @ 100 mls/hr IV Q8H [facility] Last Admin: 04/10/17 09:05 Dose: 100 mls/hr Sodium Chloride (Normal Saline) 2,000 mls @ 999.029 mls/hr IV ONETIME ONE Stop: 04/08/17 16:03 Last Admin: 04/08/17 15:38 Dose: 999.029 mls/hr Sodium Chloride (Normal Saline) 1,000 mls @ 125 mls/hr IV ASDIRECTED [facility] Last Admin: 04/10/17 06:35 Dose: 125 mls/hr Magnesium Sulfate 4 gm/ Premix 100 mls @ 50 mls/hr IV ONETIME ONE Stop: 04/09/17 13:29 Last Admin: 04/09/17 11:36 Dose: 50 mls/hr Lidocaine/Epinephrine (Xylocaine 1% With Epinephrine 1:100,000) Confirm Administered Dose 20 ml .ROUTE .STK-MED ONE Stop: 04/10/17 10:01 Last Admin: 04/10/17 10:52 Dose: 9 ml Lidocaine/Epinephrine (Xylocaine 1% With Epinephrine 1:100,000) Confirm Administered Dose 20 ml .ROUTE .STK-MED ONE Stop: 04/10/17 10:11 Miscellaneous Information (Remove Patch) 0 ea TRDERM Q72H [facility] Ondansetron HCl (Zofran) 4 mg IVPUSH ONETIME ONE Stop: 04/08/17 06:23 Last Admin: 04/08/17 08:37 Dose: Not Given Ondansetron HCl (Zofran) Confirm Administered Dose 4 mg .ROUTE .STK-MED ONE Stop: 04/08/17 09:58 Last Admin: 04/08/17 09:48 Dose: 4 mg - Exam General: Alert, Oriented, Cooperative, No Acute Distress, Other (Obese) HEENT: Pupils Equal, Pupils Reactive, EOMI, Mucous Membr. Moist/[place], Other ( Bald headed) Neck: Supple, Trachea Midline, No JVD Lungs: Clear to Auscultation, Normal Respiratory Effort Cardiovascular: Regular Rate, Regular Rhythm GI/Abdominal Exam: Normal Bowel Sounds, Soft, Non-Tender, No Organomegaly, No Distention, No Abnormal Bruit (Female) Exam: Deferred Back Exam: Normal Inspection, Decreased Range of Motion Extremities: Normal Inspection, Normal Range of Motion, Non-Tender, No Pedal Edema, Normal Capillary Refill Peripheral Pulses: 2+: Dorsalis Pedis (L), Dorsalis Pedis (R) Skin: Warm, Dry, Intact Neurological: No New Focal Deficit Psy/Mental Status: Alert, Normal Affect, Normal Mood. No: Anxious, Depressed, Suicidal Ideation - Problem List Review Problem List Initiated/Reviewed/Updated: Yes - My Orders Last 24 Hours: My Active Orders 04/10/17 09:00 Folic Acid 1 mg PO DAILY 04/10/17 09:08 Notify Provider Consults [RC] ASDIRECTED Consult to Physician [CONS] Routine 04/10/17 09:10 Transfuse PRBC [Transfuse Red Blood Cells] [COMM] Routine Transfuse Red Blood Cells [COMM] Routine 04/10/17 12:00 cefTRIAXone [Rocephin] 1 gm Dextrose 5% in Water 100 ml IV Q24H 04/11/17 05:30 BASIC METABOLIC PANEL,BMP [CHEM] AM C-REACTIVE PROTEIN [CHEM] AM MAGNESIUM [CHEM] AM 04/12/17 05:11 BASIC METABOLIC PANEL,BMP [CHEM] AM C-REACTIVE PROTEIN [CHEM] AM MAGNESIUM [CHEM] AM 04/13/17 05:11 BASIC METABOLIC PANEL,BMP [CHEM] AM C-REACTIVE PROTEIN [CHEM] AM MAGNESIUM [CHEM] AM 04/14/17 05:11 BASIC METABOLIC PANEL,BMP [CHEM] AM C-REACTIVE PROTEIN [CHEM] AM MAGNESIUM [CHEM] AM - Plan Plan:: Assessment/Plan: Acute: Infected Por-A-Cath - S/p Removal POD#1 - She has scheduled chemo infusion Friday next week - Plan is to d/c Friday and go see Dr. Beatty on Friday for re-placement prior to infusion - Dr. Beatty aware Bacteremia - 2/2 Staph Aureus from infected port-a cath - Continue current IV - Repeat blood culture so far negative for 1 day Pancytopenia, Improved - 2/2 Metastatic Disease - S/p Chemo and Radiation Therapy - Consulted Dr. Nichole by ED provider: He recommends admission and infusion of IV Cefepime 2 gram IV Q8H - Scheduled for infusion therapy today but cancelled due to low platelet levels - Hgb 9.5 --> now 7.8 (possibly dilutional since she received about 2.5 L of NS)--> 6.5 ( needs at least 2 units of PRBC for transfusion)--> 9.2 after infusion; now 9.3 - Continue current IV Abx Headache, Stable - Acute on Chronic - 2/2 Metastatic Brain Disease - Has had 12 tumors with 10 session of radiation therapy - Recent MRI < 4 weeks ago in [place] - Continue Dexamethasone and PRN Fioricet - She is aware this is due to her brain cancer Folate Deficiency - Folate level of 5.1 - Replete with folic acid S/p Hypomagnesemia - Mg 1.7 - 2/2 Inadequate intake - Replete and monitor Resolved: S/p Neutropenia - 2/2 underlying Malignancy and recent chemotherapy - She has no fever - WBC is 1.12--> 2.12 and Neutrophil # 0.73--> 1.47--> 1.69 - Off Isolation Precautions - Limit visitations from family or friends S/p Lactic Acidosis - LA 2.9 --> 2.3 --> 1.2 - She is adequately hydrating at NS 125 cc/hr; will up rate to 150 cc/hr - Her pressures have improved significantly S/p Hypotension - Documented BP of 89/53 mmHg - Sepsis risk due to immuno-suppressed state - Will give 2.5 L NS bolus - LA: 2.9 --> 2.3 S/p Generalized Weakness - Cancer and Chemotherapy related - Continue PT/OT S/p Dysuria - UA suggestive of UTI - UA Cx: Mixed Mariah - Continue current IV Abx Chronic: Impaired Vision Asthma 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 Beatty following Additional orders as above Code status: 1 Prognosis is very poor with metastatic brain and lung disease. Possible d/c on Friday.
[2017-04-11] MEDS ORDERED: Magnesium Oxide 400 MG Tab PO ONE (08:30)
[2017-04-11] MEDS: Dexamethasone 4 MG Tab PO SCH ×2 (09:20→21:57)
[2017-04-11] MEDS: Sertraline 50 MG Tab PO SCH (09:21)
[2017-04-11] MEDS: Folic Acid 1 MG Tab PO SCH (09:21)
[2017-04-11] MEDS: Acetaminophen/Butalbital/Caffeine 325-50-40 MG Tab PO PRN ×2 (09:39→21:57)
[2017-04-11] MEDS: Formoterol/Mometasone 100-5 MCG 8.8 GM Inhaler IH SCH ×2 (09:49→21:34)
[2017-04-11] MEDS: cefTRIAXone 1 GM in Dextrose 5% in Water 100 ML IV SCH ×2 (12:37)
[2017-04-12] MEDS: oxyCODONE 5 MG Tab PO PRN ×6 (04:13→22:12)
[2017-04-12] MEDS: HYDROmorphone 0.5 MG/0.5 ML SYRINGE IVPUSH PRN ×2 (04:15→21:07)
[2017-04-12] MEDS: Pantoprazole 40 MG Tab.CR PO SCH (06:22)
--- NOTE | 2017-04-12 07:40 | PCM.PN ---
- General Info Date of Service: 04/12/17 Admission Dx/Problem (Free Text): Admission Diagnosis/Problem Admission Diagnosis/Problem Fever Subjective Update: Follow Up Functional Status: Reports: Pain Controlled, Tolerating Diet, Ambulating, Urinating - Review of Systems General: Denies: Fever, Weakness, Fatigue, Malaise HEENT: Reports: Headaches Pulmonary: Denies: Shortness of Breath Cardiovascular: Denies: Chest Pain, Palpitations, Dyspnea on Exertion, Lightheadedness Gastrointestinal: Denies: Abdominal Pain, Nausea, Vomiting Genitourinary: Reports: No Symptoms Musculoskeletal: Reports: No Symptoms Skin: Denies: Cyanosis, Jaundice, Mottled, Pallor, Diaphoresis Neurological: Denies: Confusion, Dizziness, Seizure, Difficulty Walking, Weakness, Gait Disturbance Psychiatric: Denies: Confusion, Depression, Anxiety, Agitation, Hallucinations Systems Review Comment:: No significant overnight or acute issues. She looks really well this morning. She feels pretty good and no new complaints. Her labs remained stable. Her hemoglobin remains 9 grams. Still awaiting today to results of her blood culture. Her magnesium is low at 1.5. Wound culture on her port-a-cath site shows staph aureus. . - Patient Data Vitals - Most Recent: Last Vital Signs Temp 36.4 C 04/12/17 03:55 Pulse 48 L 04/12/17 03:55 Resp 12 04/12/17 03:55 BP 131/84 04/12/17 03:55 Pulse Ox 94 L 04/12/17 03:55 Weight - Most Recent: 98.339 kg I&O - Last 24 Hours: Intake & Output 04/11/17 04/12/17 04/12/17 22:59 06:59 14:59 Intake Total 680 600 Output Total 1400 Balance 680 -800 Lab Results Last 24 Hours: Laboratory Results - last 24 hr 04/11/17 04/11/17 04/12/17 Range/Units 05:30 05:30 05:49 WBC (3.98-10.04) K/mm3 RBC (3.98-5.22) M/mm3 Hgb (11.2-15.7) gm/L Hct (34.1-44.9) % MCV (79.4-94.8) fl MCH (25.6-32.2) pg MCHC (32.2-35.5) g/dl RDW Std Deviation (36.4-46.3) fL Plt Count (182-369) K/mm3 MPV (9.4-12.3) fl Neut % (Auto) (34.0-71.1) % Lymph % (Auto) (19.3-51.7) % [place] % (Auto) (4.7-12.5) % Eos % (Auto) (0.7-5.8) Baso % (Auto) (0.1-1.2) % Neut # (Auto) (1.56-6.13) K/mm3 Lymph # (Auto) (1.18-3.74) K/mm3 [place] # (Auto) (0.24-0.36) K/mm3 Eos # (Auto) (0.04-0.36) K/mm3 Baso # (Auto) (0.01-0.08) K/mm3 Manual Slide Review Abnormal smear Sodium 136 136 (136-145) mEq/L Potassium 4.5 4.4 (3.5-5.1) mEq/L Chloride 104 102 (98-107) mEq/L Carbon Dioxide 21 24 (21-32) mEq/L Anion Gap 15.5 H 14.4 (5-15) BUN 18 21 H (7-18) mg/dL Creatinine 0.8 0.7 (0.55-1.02) mg/dL Est Cr Clr Drug Dosing 84.11 96.13 mL/min Estimated GFR (MDRD) > 60 > 60 (>60) mL/min BUN/Creatinine Ratio 22.5 H 30.0 H (14-18) Glucose 132 H 114 H (74-106) mg/dL Calcium 8.6 8.8 (8.5-10.1) mg/dL Magnesium 1.7 L 1.5 L (1.8-2.4) mg/dl C-Reactive Protein 18.9 H* 8.9 H* (<1.0) mg/dL 04/12/17 Range/Units 05:49 WBC 4.76 (3.98-10.04) K/mm3 RBC 2.99 L (3.98-5.22) M/mm3 Hgb 9.5 L (11.2-15.7) gm/L Hct 29.2 L (34.1-44.9) % MCV 97.7 H (79.4-94.8) fl MCH 31.8 (25.6-32.2) pg MCHC 32.5 (32.2-35.5) g/dl RDW Std Deviation 63.3 H (36.4-46.3) fL Plt Count 61 L (182-369) K/mm3 MPV 10.0 (9.4-12.3) fl Neut % (Auto) 60.3 (34.0-71.1) % Lymph % (Auto) 22.7 (19.3-51.7) % [place] % (Auto) 12.4 (4.7-12.5) % Eos % (Auto) 0.2 L (0.7-5.8) Baso % (Auto) 0.4 (0.1-1.2) % Neut # (Auto) 2.87 (1.56-6.13) K/mm3 Lymph # (Auto) 1.08 L (1.18-3.74) K/mm3 [place] # (Auto) 0.59 H (0.24-0.36) K/mm3 Eos # (Auto) 0.01 L (0.04-0.36) K/mm3 Baso # (Auto) 0.02 (0.01-0.08) K/mm3 Manual Slide Review Abnormal smear Sodium (136-145) mEq/L Potassium (3.5-5.1) mEq/L Chloride (98-107) mEq/L Carbon Dioxide (21-32) mEq/L Anion Gap (5-15) BUN (7-18) mg/dL Creatinine (0.55-1.02) mg/dL Est Cr Clr Drug Dosing mL/min Estimated GFR (MDRD) (>60) mL/min BUN/Creatinine Ratio (14-18) Glucose (74-106) mg/dL Calcium (8.5-10.1) mg/dL Magnesium (1.8-2.4) mg/dl C-Reactive Protein (<1.0) mg/dL Zack Results Last 24 Hours: Microbiology 04/10/17 11:00 Catheter Tip Culture - Preliminary Catheter Tip Other - Port-A-Cath Gram Positive Cocci 04/10/17 10:57 Wound Culture - Preliminary Chest - Left Gram Positive Cocci Med Orders - Current: Current Medications Acetaminophen (Tylenol) 650 mg PO Q4H PRN PRN Reason: Pain (Mild 1-3)/fever Last Admin: 04/08/17 23:36 Dose: 650 mg Acetaminophen/Butalbital/Caffeine (Fioricet 325-50-40 Mg) 2 tab PO Q6H PRN PRN Reason: Headache/Pain Last Admin: 04/11/17 21:57 Dose: 2 tab Albuterol/Ipratropium (Duoneb 3.0-0.5 Mg/3 Ml) 3 ml NEB Q4H PRN PRN Reason: Shortness Of Breath/wheezing Bisacodyl (Dulcolax) 5 mg PO DAILY PRN PRN Reason: Constipation Dexamethasone (Dexamethasone) 2 mg PO BID [facility] Last Admin: 04/11/17 21:57 Dose: 2 mg Docusate Sodium (Colace) 100 mg PO BID PRN PRN Reason: Constipation Folic Acid (Folic Acid) 1 mg PO DAILY [facility] Last Admin: 04/11/17 09:21 Dose: 1 mg Hydralazine HCl (Apresoline) 20 mg IVPUSH Q4H PRN PRN Reason: Hypertension Hydromorphone HCl (Dilaudid) 1 mg IVPUSH Q4H PRN PRN Reason: Pain Last Admin: 04/12/17 04:15 Dose: 1 mg Promethazine HCl 12.5 mg/ (Sodium Chloride) 50.5 mls @ 100 mls/hr IV Q6H PRN PRN Reason: Nausea/Vomiting Ceftriaxone Sodium 1 gm/ (Dextrose/Water) 100 mls @ 200 mls/hr IV Q24H [facility] Last Admin: 04/11/17 12:37 Dose: 200 mls/hr Lorazepam (Ativan) 1 mg IV Q6H PRN PRN Reason: Anxiety Last Admin: 04/10/17 22:37 Dose: 1 mg Lorazepam (Ativan) 2 mg IVPUSH Q4H PRN PRN Reason: Seizures Magnesium Hydroxide (Milk Of Magnesia) 30 ml PO Q12H PRN PRN Reason: Constipation Magnesium Sulfate (Pharmacy To Dose - Magnesium Replacement) 1 dose .XX ASDIRECTED [facility] Metoprolol Tartrate (Lopressor) 5 mg IVPUSH Q4H PRN PRN Reason: Tachycardia Last Admin: 04/09/17 00:28 Dose: 5 mg Mometasone Furoate/Formoterol Fumar (Dulera 100-5 Mcg) 0 puff IH BID [facility] Last Admin: 04/11/17 21:34 Dose: 1 puff Ondansetron HCl (Zofran) 4 mg IV Q4H PRN PRN Reason: Nausea/Vomiting Oxycodone HCl (Oxycodone) 5 mg PO Q4H PRN PRN Reason: Pain Last Admin: 04/12/17 04:13 Dose: 5 mg Pantoprazole Sodium (Protonix) 40 mg PO DAILY@0700 [facility] Last Admin: 04/12/17 06:22 Dose: 40 mg Lidocaine/Prilocaine (1 Applic) 0 each TOP ASDIRECTED [facility] Promethazine [ (Phenergan] Plo Gel) 0 each TOP Q6H PRN PRN Reason: Nausea Polyethylene Glycol (Miralax) 17 gm PO DAILY PRN PRN Reason: Constipation Last Admin: 04/08/17 15:33 Dose: 17 gm Potassium Chloride (Pharmacy To Dose - Potassium Replacement) 1 dose .XX ASDIRECTED [facility] Prochlorperazine Maleate (Compazine) 10 mg PO QID PRN PRN Reason: Nausea/Vomiting Scopolamine (Scopolamine) 1 each TRDERM Q72H PRN PRN Reason: Nausea Last Admin: 04/08/17 12:48 Dose: 1 each Senna/Docusate Sodium (Senna Plus) 1 tab PO BID PRN PRN Reason: Constipation Last Admin: 04/08/17 15:33 Dose: 1 tab Sertraline HCl (Zoloft) 50 mg PO DAILY [facility] Last Admin: 04/11/17 09:21 Dose: 50 mg Temazepam (Restoril) 15 mg PO BEDTIME PRN PRN Reason: Sleep Last Admin: 04/10/17 22:32 Dose: 15 mg Discontinued Medications Hydrocodone Bitart/Acetaminophen ([place] 325-5 Mg) 1 tab PO Q4H PRN PRN Reason: Pain (moderate 4-6) Last Admin: 04/08/17 12:49 Dose: 1 tab Bisacodyl (Dulcolax) 10 mg RECTAL ONETIME ONE Stop: 04/08/17 15:00 Last Admin: 04/08/17 15:13 Dose: 10 mg Diphenhydramine HCl (Benadryl) 25 mg IV ONETIME ONE Stop: 04/10/17 09:16 Last Admin: 04/10/17 10:32 Dose: 25 mg Dronabinol (Marinol) 2.5 mg PO TIDAC [facility] Last Admin: 04/08/17 21:41 Dose: Not Given Fentanyl (Duragesic) 12 mcg TRDERM Q72H NIRANJAN Fentanyl (Duragesic) 25 mcg TRDERM Q72H [facility] Last Admin: 04/08/17 21:45 Dose: Not Given Hydromorphone HCl (Dilaudid) 1 mg IVPUSH ONETIME ONE Stop: 04/08/17 06:08 Last Admin: 04/08/17 07:49 Dose: Not Given Hydromorphone HCl (Dilaudid) Confirm Administered Dose 1 mg .ROUTE .STK-MED ONE Stop: 04/08/17 06:20 Last Admin: 04/08/17 06:24 Dose: Not Given Hydromorphone HCl (Dilaudid) 1 mg IVPUSH ONETIME ONE Stop: 04/08/17 06:17 Last Admin: 04/08/17 06:17 Dose: 1 mg Hydromorphone HCl (Dilaudid) 1 mg IVPUSH ONETIME ONE Stop: 04/08/17 08:00 Last Admin: 04/08/17 08:13 Dose: Not Given Hydromorphone HCl (Dilaudid) 1 mg IVPUSH ONETIME ONE Stop: 04/08/17 08:07 Last Admin: 04/08/17 08:11 Dose: 1 mg Sodium Chloride (Normal Saline) 1,000 mls @ 999 mls/hr IV ONETIME ONE Stop: 04/08/17 08:31 Last Admin: 04/08/17 07:50 Dose: 999 mls/hr Cefepime HCl 2 gm/ Premix 50 mls @ 100 mls/hr IV ONETIME ONE Stop: 04/08/17 08:52 Last Admin: 04/08/17 09:07 Dose: 100 mls/hr Sodium Chloride (Normal Saline) 1,000 mls @ 150 mls/hr IV ASDIRECTED [facility] Last Admin: 04/08/17 09:09 Dose: 150 mls/hr Cefepime HCl 2 gm/ Premix 50 mls @ 100 mls/hr IV Q8H [facility] Last Admin: 04/10/17 09:05 Dose: 100 mls/hr Sodium Chloride (Normal Saline) 2,000 mls @ 999.029 mls/hr IV ONETIME ONE Stop: 04/08/17 16:03 Last Admin: 04/08/17 15:38 Dose: 999.029 mls/hr Sodium Chloride (Normal Saline) 1,000 mls @ 125 mls/hr IV ASDIRECTED [facility] Last Admin: 04/10/17 06:35 Dose: 125 mls/hr Magnesium Sulfate 4 gm/ Premix 100 mls @ 50 mls/hr IV ONETIME ONE Stop: 04/09/17 13:29 Last Admin: 04/09/17 11:36 Dose: 50 mls/hr Lidocaine/Epinephrine (Xylocaine 1% With Epinephrine 1:100,000) Confirm Administered Dose 20 ml .ROUTE .STK-MED ONE Stop: 04/10/17 10:01 Last Admin: 04/10/17 10:52 Dose: 9 ml Lidocaine/Epinephrine (Xylocaine 1% With Epinephrine 1:100,000) Confirm Administered Dose 20 ml .ROUTE .STK-MED ONE Stop: 04/10/17 10:11 Magnesium Oxide (Magnesium Oxide) 800 mg PO ONETIME ONE Stop: 04/11/17 08:31 Last Admin: 04/11/17 09:19 Dose: 800 mg Miscellaneous Information (Remove Patch) 0 ea TRDERM Q72H [facility] Ondansetron HCl (Zofran) 4 mg IVPUSH ONETIME ONE Stop: 04/08/17 06:23 Last Admin: 04/08/17 08:37 Dose: Not Given Ondansetron HCl (Zofran) Confirm Administered Dose 4 mg .ROUTE .STK-MED ONE Stop: 04/08/17 09:58 Last Admin: 04/08/17 09:48 Dose: 4 mg - Exam General: Alert, Oriented, Cooperative, No Acute Distress, Other (Obese) HEENT: Pupils Equal, Pupils Reactive, EOMI, Mucous Membr. Moist/[place], Other ( bald headed) Neck: Supple, Trachea Midline, No JVD, No Thyromegaly Lungs: Clear to Auscultation, Normal Respiratory Effort Cardiovascular: Regular Rate, Regular Rhythm GI/Abdominal Exam: Normal Bowel Sounds, Soft, Non-Tender, No Organomegaly, No Distention, No Abnormal Bruit, Other (Obese) (Female) Exam: Deferred Back Exam: Normal Inspection, Decreased Range of Motion Extremities: Normal Inspection, Normal Range of Motion, Non-Tender, No Pedal Edema, Normal Capillary Refill Peripheral Pulses: 2+: Posterior Tibial (L), Posterior Tibial (R), Dorsalis Pedis (L), Dorsalis Pedis (R) Skin: Warm, Dry, Intact Wound/Incisions: Healing Well, Dressing Dry and Intact, No Drainage Neurological: No New Focal Deficit Psy/Mental Status: Alert, Normal Affect, Normal Mood - Problem List Review Problem List Initiated/Reviewed/Updated: Yes - My Orders Last 24 Hours: My Active Orders 04/11/17 07:50 CULTURE BLOOD [BC] Stat 04/11/17 08:00 Blood Culture x2 Reflex Set [OM.PC] Stat 04/11/17 09:19 CULTURE BLOOD [BC] Stat 04/13/17 05:11 BASIC METABOLIC PANEL,BMP [CHEM] AM C-REACTIVE PROTEIN [CHEM] AM MAGNESIUM [CHEM] AM 04/14/17 05:11 BASIC METABOLIC PANEL,BMP [CHEM] AM C-REACTIVE PROTEIN [CHEM] AM MAGNESIUM [CHEM] AM - Plan Plan:: Assessment/Plan: Acute: Infected Por-A-Cath - S/p Removal POD#2; wound culture is pos for Staph aureus organism - She has scheduled chemo infusion Friday next week - Plan is to d/c Friday and go see Dr. Beatty on Friday for re-placement prior to infusion - Dr. Beatty aware Bacteremia - 2/2 Staph Aureus from infected port-a cath - Continue current IV - Repeat blood culture so far negative Pancytopenia, Satble - 2/2 Metastatic Disease - S/p Chemo and Radiation Therapy - Consulted Dr. Nichole by ED provider: He recommends admission and infusion of IV Cefepime 2 gram IV Q8H - Scheduled for infusion therapy today but cancelled due to low platelet levels - Hgb 9.5 --> now 7.8 (possibly dilutional since she received about 2.5 L of NS)--> 6.5 ( needs at least 2 units of PRBC for transfusion)--> 9.2 after infusion; now 9.5 - Continue current IV Abx Headache, Stable - Acute on Chronic - 2/2 Metastatic Brain Disease - Has had 12 tumors with 10 session of radiation therapy - Recent MRI < 4 weeks ago in [place] - Continue Dexamethasone and PRN Fioricet - She is aware this is due to her brain cancer Folate Deficiency - Folate level of 5.1 - Replete with folic acid S/p Hypomagnesemia - Mg 1.7--> 1.5 - 2/2 Inadequate intake - Replete and monitor Resolved: S/p Neutropenia - 2/2 underlying Malignancy and recent chemotherapy - She has no fever - WBC is 1.12--> 2.12 and Neutrophil # 0.73--> 1.47--> 1.69 - Off Isolation Precautions - Limit visitations from family or friends S/p Lactic Acidosis - LA 2.9 --> 2.3 --> 1.2 - She is adequately hydrating at NS 125 cc/hr; will up rate to 150 cc/hr - Her pressures have improved significantly S/p Hypotension - Documented BP of 89/53 mmHg - Sepsis risk due to immuno-suppressed state - Will give 2.5 L NS bolus - LA: 2.9 --> 2.3 S/p Generalized Weakness - Cancer and Chemotherapy related - Continue PT/OT S/p Dysuria - UA suggestive of UTI - UA Cx: Mixed Mariah - Continue current IV Abx Chronic: Impaired Vision Asthma 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 Beatty following Additional orders as above Code status: 1 Prognosis is very poor with metastatic brain and lung disease. D/c in AM.
[2017-04-12] MEDS: Dexamethasone 4 MG Tab PO SCH ×2 (08:57→21:16)
[2017-04-12] MEDS: Sertraline 50 MG Tab PO SCH (08:58)
[2017-04-12] MEDS: Folic Acid 1 MG Tab PO SCH (08:58)
[2017-04-12] MEDS ORDERED: Magnesium Sulfate/Water 2 GM in Premix Bag 1 BAG IV ONE (10:00)
[2017-04-12] MEDS: Formoterol/Mometasone 100-5 MCG 8.8 GM Inhaler IH SCH ×2 (10:00→22:09)
--- NOTE | 2017-04-12 10:29 | PCM.SURGPN ---
- General Info Date of Service: 04/12/17 - Review of Systems General: Reports: No Symptoms - Patient Data Vitals - Most Recent: Last Vital Signs Temp 97.3 F 04/12/17 07:43 Pulse 48 L 04/12/17 07:43 Resp 20 04/12/17 07:43 BP 141/98 H 04/12/17 07:43 Pulse Ox 98 04/12/17 10:01 Weight - Most Recent: 98.339 kg I&O - Last 24 Hours: Intake & Output 04/11/17 04/12/17 04/12/17 23:59 07:59 15:59 Intake Total 680 600 Output Total 1400 Balance 680 -800 Lab Results Last 24 Hrs: Laboratory Results - last 24 hr 04/12/17 04/12/17 Range/Units 05:49 05:49 WBC 4.76 (3.98-10.04) K/mm3 RBC 2.99 L (3.98-5.22) M/mm3 Hgb 9.5 L (11.2-15.7) gm/L Hct 29.2 L (34.1-44.9) % MCV 97.7 H (79.4-94.8) fl MCH 31.8 (25.6-32.2) pg MCHC 32.5 (32.2-35.5) g/dl RDW Std Deviation 63.3 H (36.4-46.3) fL Plt Count 61 L (182-369) K/mm3 MPV 10.0 (9.4-12.3) fl Neut % (Auto) 60.3 (34.0-71.1) % Lymph % (Auto) 22.7 (19.3-51.7) % [place] % (Auto) 12.4 (4.7-12.5) % Eos % (Auto) 0.2 L (0.7-5.8) Baso % (Auto) 0.4 (0.1-1.2) % Neut # (Auto) 2.87 (1.56-6.13) K/mm3 Lymph # (Auto) 1.08 L (1.18-3.74) K/mm3 [place] # (Auto) 0.59 H (0.24-0.36) K/mm3 Eos # (Auto) 0.01 L (0.04-0.36) K/mm3 Baso # (Auto) 0.02 (0.01-0.08) K/mm3 Manual Slide Review Abnormal smear Sodium 136 (136-145) mEq/L Potassium 4.4 (3.5-5.1) mEq/L Chloride 102 (98-107) mEq/L Carbon Dioxide 24 (21-32) mEq/L Anion Gap 14.4 (5-15) BUN 21 H (7-18) mg/dL Creatinine 0.7 (0.55-1.02) mg/dL Est Cr Clr Drug Dosing 96.13 mL/min Estimated GFR (MDRD) > 60 (>60) mL/min BUN/Creatinine Ratio 30.0 H (14-18) Glucose 114 H (74-106) mg/dL Calcium 8.8 (8.5-10.1) mg/dL Magnesium 1.5 L (1.8-2.4) mg/dl C-Reactive Protein 8.9 H* (<1.0) mg/dL Zack Results Last 24 Hrs: Microbiology 04/11/17 09:19 Aerobic Blood Culture - Preliminary Blood - Venous - Lab Draw NO GROWTH AFTER 1 DAY Anaerobic Blood Culture - Preliminary NO GROWTH AFTER 1 DAY 04/11/17 07:50 Aerobic Blood Culture - Preliminary Blood - Venous NO GROWTH AFTER 1 DAY Anaerobic Blood Culture - Preliminary NO GROWTH AFTER 1 DAY 04/10/17 11:00 Catheter Tip Culture - Preliminary Catheter Tip Other - Port-A-Cath Gram Positive Cocci 04/10/17 10:57 Wound Culture - Preliminary Chest - Left Gram Positive Cocci Med Orders - Current: Current Medications Acetaminophen (Tylenol) 650 mg PO Q4H PRN PRN Reason: Pain (Mild 1-3)/fever Last Admin: 04/08/17 23:36 Dose: 650 mg Acetaminophen/Butalbital/Caffeine (Fioricet 325-50-40 Mg) 2 tab PO Q6H PRN PRN Reason: Headache/Pain Last Admin: 04/11/17 21:57 Dose: 2 tab Albuterol/Ipratropium (Duoneb 3.0-0.5 Mg/3 Ml) 3 ml NEB Q4H PRN PRN Reason: Shortness Of Breath/wheezing Bisacodyl (Dulcolax) 5 mg PO DAILY PRN PRN Reason: Constipation Dexamethasone (Dexamethasone) 2 mg PO BID [facility] Last Admin: 04/12/17 08:57 Dose: 2 mg Docusate Sodium (Colace) 100 mg PO BID PRN PRN Reason: Constipation Folic Acid (Folic Acid) 1 mg PO DAILY [facility] Last Admin: 04/12/17 08:58 Dose: 1 mg Hydralazine HCl (Apresoline) 20 mg IVPUSH Q4H PRN PRN Reason: Hypertension Hydromorphone HCl (Dilaudid) 1 mg IVPUSH Q4H PRN PRN Reason: Pain Last Admin: 04/12/17 04:15 Dose: 1 mg Promethazine HCl 12.5 mg/ (Sodium Chloride) 50.5 mls @ 100 mls/hr IV Q6H PRN PRN Reason: Nausea/Vomiting Ceftriaxone Sodium 1 gm/ (Dextrose/Water) 100 mls @ 200 mls/hr IV Q24H [facility] Last Admin: 04/11/17 12:37 Dose: 200 mls/hr Magnesium Sulfate 2 gm/ Premix 50 mls @ 25 mls/hr IV ONETIME ONE Stop: 04/12/17 11:59 Lorazepam (Ativan) 1 mg IV Q6H PRN PRN Reason: Anxiety Last Admin: 04/10/17 22:37 Dose: 1 mg Lorazepam (Ativan) 2 mg IVPUSH Q4H PRN PRN Reason: Seizures Magnesium Hydroxide (Milk Of Magnesia) 30 ml PO Q12H PRN PRN Reason: Constipation Magnesium Sulfate (Pharmacy To Dose - Magnesium Replacement) 1 dose .XX ASDIRECTED [facility] Metoprolol Tartrate (Lopressor) 5 mg IVPUSH Q4H PRN PRN Reason: Tachycardia Last Admin: 04/09/17 00:28 Dose: 5 mg Mometasone Furoate/Formoterol Fumar (Dulera 100-5 Mcg) 0 puff IH BID [facility] Last Admin: 04/12/17 10:00 Dose: 1 puff Ondansetron HCl (Zofran) 4 mg IV Q4H PRN PRN Reason: Nausea/Vomiting Oxycodone HCl (Oxycodone) 5 mg PO Q4H PRN PRN Reason: Pain Last Admin: 04/12/17 08:58 Dose: 5 mg Pantoprazole Sodium (Protonix) 40 mg PO DAILY@0700 [facility] Last Admin: 04/12/17 06:22 Dose: 40 mg Lidocaine/Prilocaine (1 Applic) 0 each TOP ASDIRECTED [facility] Promethazine [ (Phenergan] Plo Gel) 0 each TOP Q6H PRN PRN Reason: Nausea Polyethylene Glycol (Miralax) 17 gm PO DAILY PRN PRN Reason: Constipation Last Admin: 04/08/17 15:33 Dose: 17 gm Potassium Chloride (Pharmacy To Dose - Potassium Replacement) 1 dose .XX ASDIRECTED [facility] Prochlorperazine Maleate (Compazine) 10 mg PO QID PRN PRN Reason: Nausea/Vomiting Scopolamine (Scopolamine) 1 each TRDERM Q72H PRN PRN Reason: Nausea Last Admin: 04/08/17 12:48 Dose: 1 each Senna/Docusate Sodium (Senna Plus) 1 tab PO BID PRN PRN Reason: Constipation Last Admin: 04/08/17 15:33 Dose: 1 tab Sertraline HCl (Zoloft) 50 mg PO DAILY [facility] Last Admin: 04/12/17 08:58 Dose: 50 mg Temazepam (Restoril) 15 mg PO BEDTIME PRN PRN Reason: Sleep Last Admin: 04/10/17 22:32 Dose: 15 mg Discontinued Medications Hydrocodone Bitart/Acetaminophen ([place] 325-5 Mg) 1 tab PO Q4H PRN PRN Reason: Pain (moderate 4-6) Last Admin: 04/08/17 12:49 Dose: 1 tab Bisacodyl (Dulcolax) 10 mg RECTAL ONETIME ONE Stop: 04/08/17 15:00 Last Admin: 04/08/17 15:13 Dose: 10 mg Diphenhydramine HCl (Benadryl) 25 mg IV ONETIME ONE Stop: 04/10/17 09:16 Last Admin: 04/10/17 10:32 Dose: 25 mg Dronabinol (Marinol) 2.5 mg PO TIDAC [facility] Last Admin: 04/08/17 21:41 Dose: Not Given Fentanyl (Duragesic) 12 mcg TRDERM Q72H NIRANJAN Fentanyl (Duragesic) 25 mcg TRDERM Q72H [facility] Last Admin: 04/08/17 21:45 Dose: Not Given Hydromorphone HCl (Dilaudid) 1 mg IVPUSH ONETIME ONE Stop: 04/08/17 06:08 Last Admin: 04/08/17 07:49 Dose: Not Given Hydromorphone HCl (Dilaudid) Confirm Administered Dose 1 mg .ROUTE .STK-MED ONE Stop: 04/08/17 06:20 Last Admin: 04/08/17 06:24 Dose: Not Given Hydromorphone HCl (Dilaudid) 1 mg IVPUSH ONETIME ONE Stop: 04/08/17 06:17 Last Admin: 04/08/17 06:17 Dose: 1 mg Hydromorphone HCl (Dilaudid) 1 mg IVPUSH ONETIME ONE Stop: 04/08/17 08:00 Last Admin: 04/08/17 08:13 Dose: Not Given Hydromorphone HCl (Dilaudid) 1 mg IVPUSH ONETIME ONE Stop: 04/08/17 08:07 Last Admin: 04/08/17 08:11 Dose: 1 mg Sodium Chloride (Normal Saline) 1,000 mls @ 999 mls/hr IV ONETIME ONE Stop: 04/08/17 08:31 Last Admin: 04/08/17 07:50 Dose: 999 mls/hr Cefepime HCl 2 gm/ Premix 50 mls @ 100 mls/hr IV ONETIME ONE Stop: 04/08/17 08:52 Last Admin: 04/08/17 09:07 Dose: 100 mls/hr Sodium Chloride (Normal Saline) 1,000 mls @ 150 mls/hr IV ASDIRECTED [facility] Last Admin: 04/08/17 09:09 Dose: 150 mls/hr Cefepime HCl 2 gm/ Premix 50 mls @ 100 mls/hr IV Q8H [facility] Last Admin: 04/10/17 09:05 Dose: 100 mls/hr Sodium Chloride (Normal Saline) 2,000 mls @ 999.029 mls/hr IV ONETIME ONE Stop: 04/08/17 16:03 Last Admin: 04/08/17 15:38 Dose: 999.029 mls/hr Sodium Chloride (Normal Saline) 1,000 mls @ 125 mls/hr IV ASDIRECTED [facility] Last Admin: 04/10/17 06:35 Dose: 125 mls/hr Magnesium Sulfate 4 gm/ Premix 100 mls @ 50 mls/hr IV ONETIME ONE Stop: 04/09/17 13:29 Last Admin: 04/09/17 11:36 Dose: 50 mls/hr Lidocaine/Epinephrine (Xylocaine 1% With Epinephrine 1:100,000) Confirm Administered Dose 20 ml .ROUTE .STK-MED ONE Stop: 04/10/17 10:01 Last Admin: 04/10/17 10:52 Dose: 9 ml Lidocaine/Epinephrine (Xylocaine 1% With Epinephrine 1:100,000) Confirm Administered Dose 20 ml .ROUTE .STK-MED ONE Stop: 04/10/17 10:11 Magnesium Oxide (Magnesium Oxide) 800 mg PO ONETIME ONE Stop: 04/11/17 08:31 Last Admin: 04/11/17 09:19 Dose: 800 mg Miscellaneous Information (Remove Patch) 0 ea TRDERM Q72H NIRANJAN Ondansetron HCl (Zofran) 4 mg IVPUSH ONETIME ONE Stop: 04/08/17 06:23 Last Admin: 04/08/17 08:37 Dose: Not Given Ondansetron HCl (Zofran) Confirm Administered Dose 4 mg .ROUTE .STK-MED ONE Stop: 04/08/17 09:58 Last Admin: 04/08/17 09:48 Dose: 4 mg - Exam Wound/Incisions: Healing Well - Problem List Review Problem List Initiated/Reviewed/Updated: Yes - My Orders Last 24 Hours: Active Orders 24 hr Category Date Time Status BASIC METABOLIC PANEL,BMP [CHEM] AM Lab 04/13/17 05:11 Ordered BASIC METABOLIC PANEL,BMP [CHEM] AM Lab 04/14/17 05:11 Ordered C-REACTIVE PROTEIN [CHEM] AM Lab 04/13/17 05:11 Ordered C-REACTIVE PROTEIN [CHEM] AM Lab 04/14/17 05:11 Ordered CBC WITH AUTO DIFF [HEME] AM Lab 04/13/17 05:11 Ordered MAGNESIUM [CHEM] AM Lab 04/13/17 05:11 Ordered MAGNESIUM [CHEM] AM Lab 04/14/17 05:11 Ordered Magnesium Sulfate/Water [Magnesium Sulfate 2 GM in Med 04/12/17 10:00 Active Water 50 ML] 2 gm Premix Bag 1 bag IV ONETIME Medication Orders Acetaminophen (Tylenol) 650 mg PO Q4H PRN PRN Reason: Pain (Mild 1-3)/fever Last Admin: 04/08/17 23:36 Dose: 650 mg Acetaminophen/Butalbital/Caffeine (Fioricet 325-50-40 Mg) 2 tab PO Q6H PRN PRN Reason: Headache/Pain Last Admin: 04/11/17 21:57 Dose: 2 tab Admin: 04/11/17 09:39 Dose: 2 tab Admin: 04/10/17 08:55 Dose: 2 tab Albuterol/Ipratropium (Duoneb 3.0-0.5 Mg/3 Ml) 3 ml NEB Q4H PRN PRN Reason: Shortness Of Breath/wheezing Bisacodyl (Dulcolax) 5 mg PO DAILY PRN PRN Reason: Constipation Dexamethasone (Dexamethasone) 2 mg PO BID [facility] Last Admin: 04/12/17 08:57 Dose: 2 mg Admin: 04/11/17 21:57 Dose: 2 mg Admin: 04/11/17 09:20 Dose: 2 mg Admin: 04/10/17 22:31 Dose: 2 mg Admin: 04/10/17 08:56 Dose: 2 mg Admin: 04/09/17 21:00 Dose: 2 mg Admin: 04/09/17 08:20 Dose: 2 mg Admin: 04/08/17 20:15 Dose: 2 mg Docusate Sodium (Colace) 100 mg PO BID PRN PRN Reason: Constipation Folic Acid (Folic Acid) 1 mg PO DAILY [facility] Last Admin: 04/12/17 08:58 Dose: 1 mg Admin: 04/11/17 09:21 Dose: 1 mg Admin: 04/10/17 08:56 Dose: 1 mg Hydralazine HCl (Apresoline) 20 mg IVPUSH Q4H PRN PRN Reason: Hypertension Hydromorphone HCl (Dilaudid) 1 mg IVPUSH Q4H PRN PRN Reason: Pain Last Admin: 04/12/17 04:15 Dose: 1 mg Admin: 04/11/17 22:00 Dose: 1 mg Admin: 04/11/17 11:45 Dose: 1 mg Admin: 04/11/17 03:37 Dose: 1 mg Admin: 04/10/17 20:45 Dose: 1 mg Admin: 04/10/17 08:54 Dose: 1 mg Admin: 04/10/17 04:47 Dose: 1 mg Admin: 04/09/17 21:06 Dose: 1 mg Admin: 04/09/17 14:29 Dose: 1 mg Admin: 04/09/17 10:15 Dose: 1 mg Admin: 04/09/17 02:45 Dose: 1 mg Admin: 04/08/17 20:14 Dose: 1 mg Promethazine HCl 12.5 mg/ (Sodium Chloride) 50.5 mls @ 100 mls/hr IV Q6H PRN PRN Reason: Nausea/Vomiting Ceftriaxone Sodium 1 gm/ (Dextrose/Water) 100 mls @ 200 mls/hr IV Q24H [facility] Last Admin: 04/11/17 12:37 Dose: 200 mls/hr Infusion: 04/10/17 12:53 Dose: 200 mls/hr Admin: 04/10/17 12:23 Dose: 200 mls/hr Magnesium Sulfate 2 gm/ Premix 50 mls @ 25 mls/hr IV ONETIME ONE Stop: 04/12/17 11:59 Lorazepam (Ativan) 1 mg IV Q6H PRN PRN Reason: Anxiety Last Admin: 04/10/17 22:37 Dose: 1 mg Admin: 04/09/17 21:09 Dose: 1 mg Admin: 04/08/17 23:32 Dose: 1 mg Lorazepam (Ativan) 2 mg IVPUSH Q4H PRN PRN Reason: Seizures Magnesium Hydroxide (Milk Of Magnesia) 30 ml PO Q12H PRN PRN Reason: Constipation Magnesium Sulfate (Pharmacy To Dose - Magnesium Replacement) 1 dose .XX ASDIRECTED [facility] Metoprolol Tartrate (Lopressor) 5 mg IVPUSH Q4H PRN PRN Reason: Tachycardia Last Admin: 04/09/17 00:28 Dose: 5 mg Mometasone Furoate/Formoterol Fumar (Dulera 100-5 Mcg) 0 puff IH BID [facility] Last Admin: 04/12/17 10:00 Dose: 1 puff Admin: 04/11/17 21:34 Dose: 1 puff Admin: 04/11/17 09:49 Dose: 1 puff Admin: 04/10/17 21:21 Dose: 1 puff Admin: 04/10/17 08:17 Dose: 1 puff Admin: 04/09/17 23:06 Dose: Admin: 04/09/17 08:16 Dose: 1 puff Admin: 04/08/17 21:39 Dose: 2 puff Ondansetron HCl (Zofran) 4 mg IV Q4H PRN PRN Reason: Nausea/Vomiting Oxycodone HCl (Oxycodone) 5 mg PO Q4H PRN PRN Reason: Pain Last Admin: 04/12/17 08:58 Dose: 5 mg Admin: 04/12/17 04:13 Dose: 5 mg Admin: 04/11/17 21:56 Dose: 5 mg Admin: 04/11/17 11:41 Dose: 5 mg Admin: 04/11/17 03:41 Dose: 5 mg Admin: 04/10/17 22:33 Dose: 5 mg Admin: 04/10/17 08:55 Dose: 5 mg Admin: 04/10/17 04:46 Dose: 5 mg Admin: 04/09/17 21:03 Dose: 5 mg Admin: 04/09/17 09:09 Dose: 5 mg Admin: 04/09/17 02:43 Dose: 5 mg Pantoprazole Sodium (Protonix) 40 mg PO DAILY@0700 [facility] Last Admin: 04/12/17 06:22 Dose: 40 mg Admin: 04/11/17 06:56 Dose: 40 mg Admin: 04/10/17 06:34 Dose: 40 mg Admin: 04/09/17 06:06 Dose: 40 mg Lidocaine/Prilocaine (1 Applic) 0 each TOP ASDIRECTED [facility] Promethazine [ (Phenergan] Plo Gel) 0 each TOP Q6H PRN PRN Reason: Nausea Polyethylene Glycol (Miralax) 17 gm PO DAILY PRN PRN Reason: Constipation Last Admin: 04/08/17 15:33 Dose: 17 gm Potassium Chloride (Pharmacy To Dose - Potassium Replacement) 1 dose .XX ASDIRECTED [facility] Prochlorperazine Maleate (Compazine) 10 mg PO QID PRN PRN Reason: Nausea/Vomiting Scopolamine (Scopolamine) 1 each TRDERM Q72H PRN PRN Reason: Nausea Last Admin: 04/08/17 12:48 Dose: 1 each Senna/Docusate Sodium (Senna Plus) 1 tab PO BID PRN PRN Reason: Constipation Last Admin: 04/08/17 15:33 Dose: 1 tab Sertraline HCl (Zoloft) 50 mg PO DAILY [facility] Last Admin: 04/12/17 08:58 Dose: 50 mg Admin: 04/11/17 09:21 Dose: 50 mg Admin: 04/10/17 08:56 Dose: 50 mg Admin: 04/09/17 08:21 Dose: 50 mg Temazepam (Restoril) 15 mg PO BEDTIME PRN PRN Reason: Sleep Last Admin: 04/10/17 22:32 Dose: 15 mg Admin: 04/09/17 21:01 Dose: 15 mg Admin: 04/08/17 21:18 Dose: 15 mg - Plan Plan (Free Text/Narrative):: surgical site healing without problem cultures of the cath tip and the pocket of the parveen cath positive gram+ bacteria ass improved plan follow up as per Dr. French CHASE
[2017-04-12] MEDS: cefTRIAXone 1 GM in Dextrose 5% in Water 100 ML IV SCH ×2 (11:07)
[2017-04-13] MEDS: Acetaminophen/Butalbital/Caffeine 325-50-40 MG Tab PO PRN ×2 (03:02→09:02)
[2017-04-13] MEDS: oxyCODONE 5 MG Tab PO PRN ×3 (05:19→13:33)
[2017-04-13] MEDS: Pantoprazole 40 MG Tab.CR PO SCH (06:50)
[2017-04-13] MEDS: Formoterol/Mometasone 100-5 MCG 8.8 GM Inhaler IH SCH (08:33)
[2017-04-13] MEDS: HYDROmorphone 0.5 MG/0.5 ML SYRINGE IVPUSH PRN ×2 (09:00→13:23)
--- NOTE | 2017-04-13 09:00 | PCM.DCSUM1 ---
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 Her chief complaint is associated with generalized weakness, back pain and acute headache. She denies any neurological deficits. Patient is concerned she may have UTI. 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 - Hemicrania continua (3) Folate deficiency anemia SNOMED Code(s): 91545982 ICD Code: D52.9 - FOLATE DEFICIENCY ANEMIA, UNSPECIFIED Status: Acute Qualifiers: Folate deficiency anemia type: other folate deficiency Qualified Code(s): D52.8 - Other folate deficiency anemias (4) Hypomagnesemia SNOMED Code(s): 789377525 ICD Code: E83.42 - HYPOMAGNESEMIA Status: Acute (5) Neutropenia associated with infection SNOMED Code(s): 73599271 ICD Code: D70.3 - NEUTROPENIA DUE TO INFECTION Status: Resolved (6) Lactic acidosis SNOMED Code(s): 19293066 ICD Code: E87.2 - ACIDOSIS Status: Resolved (7) Hypotension SNOMED Code(s): 26064786 ICD Code: I95.9 - HYPOTENSION, UNSPECIFIED Status: Resolved Qualifiers: Hypotension type: orthostatic hypotension Qualified Code(s): I95.1 - Orthostatic hypotension (8) Generalized weakness SNOMED Code(s): 66112536 ICD Code: R53.1 - WEAKNESS Status: Resolved (9) Pancytopenia SNOMED Code(s): 529901893 ICD Code: D61.818 - OTHER PANCYTOPENIA Status: Chronic - Patient Summary/Data Operative Procedure(s) Performed: removal of prota cath Complications: None Consults: Consultations 04/08/17 11:02 Consult to Case Management [CONS] Routine Consult to Webbing Supervisor [CONS] Routine Consult to Spiritual Care [CONS] Routine OT Evaluation and Treatment [CONS] Routine PT Evaluation and Treatment [CONS] Routine 04/10/17 09:08 Consult to Physician [CONS] Routine Labs Pending at D/C: None Recommended Follow-up Testing/Procedures: port-a-cath placement Planned Operative Procedure(s) after DC: port-a-cath placement Hospital Course: Patient was primarily admitted for bacteremia 2/2 infected port-a-cath access line. She thought she was having UTI but her urine culture was negative. She did however grew staph aureus on blood cultures and was covered with cefepime for antibiotic treatment. Her repeat blood cultures after 48 hrs were negative after her access line was removed. Her hospital course was complicated by anemia related to her underlying malignancy. But she received 2 units of PRBC to improve her Hgb level to 9 gram. Patient was stable upon discharged. She was provided oral levaquin to complete a total of 14 day course of treatment. She was advised to follow up with Dr. Beatty tomorrow for possible port-a-cath replacement. She was further advised to come back or seek immediate care should her symptoms persist or get worse. The patient expressed understanding and in agreement with the plans as discussed above. All questions were answered. - Patient Instructions Diet: Usual Diet as Tolerated Activity: As Tolerated Driving: Do Not Drive Showering/Bathing: May Shower Notify Provider of: Fever, Increased Pain, Nausea and/or Vomiting Other/Special Instructions: - Please take new medications as directed. - Continue all home medications. - Resume home routine activities as tolerated. - Follow up with Dr. Beatty tomorrow for port-a cath placement. - Follow up with your doctor in 1 week - Discharge Plan Prescriptions/Med Rec: Cyanocobalamin/FA/Pyridoxine [Folic Acid-Vit B6-Vit B12] 1 each PO ASDIRECTED # 30 tablet Levofloxacin [Levaquin] 500 mg PO DAILY #7 tab Saccharomyces Boulardii [Florastor] 250 mg PO DAILY #7 cap Home Medications: Home Meds Albuterol [IJD: Ventolin HFA] 2 puff INH Q4HR PRN 04/08/17 [History] Budesonide/Formoterol [Symbicort 80-4.5 MCG] 1 puff INH BID 04/08/17 [History] Dexamethasone 2 mg PO BID 04/08/17 [History] Hydrocodone/Acetaminophen [Hydrocodon-Acetaminophen 5-325] 1 - 2 tab PO Q4H PRN 04/08/17 [History] LORazepam 0.5 mg PO QID PRN 04/08/17 [History] Lidocaine/Prilocaine [Lidocaine-Prilocaine Cream] 1 applic TOP ASDIRECTED [History] Omeprazole 40 mg PO DAILY 04/08/17 [History] Ondansetron [Zofran ODT] 4 mg PO Q4H PRN 04/08/17 [History] Prochlorperazine [Compazine] 10 mg PO QID PRN 04/08/17 [History] Promethazine [Phenergan] 0.5 ml TOP Q6H PRN 04/08/17 [History] Sertraline [Zoloft] 50 mg PO DAILY 04/08/17 [History] Cyanocobalamin/FA/Pyridoxine [Folic Acid-Vit B6-Vit B12] 1 each PO ASDIRECTED # 30 tablet 04/13/17 [Rx] Levofloxacin [Levaquin] 500 mg PO DAILY #7 tab 04/13/17 [Rx] Saccharomyces Boulardii [Florastor] 250 mg PO DAILY #7 cap 04/13/17 [Rx] Referrals: Cisco Beatty MD [Physician] - (Dr. Beatty stated that he has an open slot on Fri. at 1430- However you will need to call the clinic and schedule the apt. Dr. Beatty will set up an out pt. apt. for the pt. to get her port replaced as she has a chemotherapy treatment scheduled for this coming Fri.) PCP,Not In Area [Primary Care Provider] - (Please follow up with PCP in 1-2 weeks. ) - Discharge Summary/Plan Comment DC Time >30 min.: Yes (45 mins) Discharge Summary/Plan Comment: Discharge to Home - General Info Date of Service: 04/13/17 Admission Dx/Problem (Free Text: Admission Diagnosis/Problem Admission Diagnosis/Problem Fever Subjective Update: Follow Up Functional Status: Reports: Pain Controlled, Tolerating Diet, Ambulating, Urinating - Review of Systems General: Denies: Fever, Weakness, Fatigue, Malaise, Chills HEENT: Reports: No Symptoms Pulmonary: Denies: Shortness of Breath Cardiovascular: Denies: Chest Pain Gastrointestinal: Reports: Flatus. Denies: Abdominal Pain, Constipation, Decreased Appetite, Diarrhea, Difficulty Swallowing, Nausea, Vomiting Genitourinary: Reports: No Symptoms Musculoskeletal: Reports: No Symptoms Skin: Denies: Cyanosis, Jaundice, Mottled, Pallor, Diaphoresis Neurological: Reports: Headache. Denies: Confusion, Dizziness, Seizure, Difficulty Walking, Weakness, Gait Disturbance Psychiatric: Denies: Depression, Anxiety, Agitation, Hallucinations Systems Review Comment: No overnight or acute issues. She slept pretty good. She feels good and has no complaints this morning. Her Mg level is 1.4 this AM. - Patient Data Vitals - Most Recent: Last Vital Signs Temp 36.4 C 04/13/17 03:08 Pulse 64 04/13/17 03:08 Resp 14 04/13/17 03:08 BP 117/71 04/13/17 03:08 Pulse Ox 98 04/13/17 08:34 Weight - Most Recent: 96.524 kg I&O - Last 24 hours: Intake & Output 04/12/17 04/13/17 04/13/17 22:59 06:59 14:59 Intake Total 1030 700 Output Total 700 2000 Balance 330 -1300 Lab Results - Last 24 hrs: Laboratory Results - last 24 hr 04/13/17 04/13/17 Range/Units 05:56 05:56 WBC 4.26 (3.98-10.04) K/mm3 RBC 3.16 L (3.98-5.22) M/mm3 Hgb 10.3 L (11.2-15.7) gm/L Hct 30.8 L (34.1-44.9) % MCV 97.5 H (79.4-94.8) fl MCH 32.6 H (25.6-32.2) pg MCHC 33.4 (32.2-35.5) g/dl RDW Std Deviation 60.1 H (36.4-46.3) fL Plt Count 69 L (182-369) K/mm3 MPV 9.9 (9.4-12.3) fl Neut % (Auto) 58.0 (34.0-71.1) % Lymph % (Auto) 17.1 L (19.3-51.7) % Major % (Auto) 11.5 (4.7-12.5) % Eos % (Auto) 0.5 L (0.7-5.8) Baso % (Auto) 0.7 (0.1-1.2) % Neut # (Auto) 2.47 (1.56-6.13) K/mm3 Lymph # (Auto) 0.73 L (1.18-3.74) K/mm3 Major # (Auto) 0.49 H (0.24-0.36) K/mm3 Eos # (Auto) 0.02 L (0.04-0.36) K/mm3 Baso # (Auto) 0.03 (0.01-0.08) K/mm3 Manual Slide Review Abnormal smear Sodium 137 (136-145) mEq/L Potassium 4.2 (3.5-5.1) mEq/L Chloride 100 (98-107) mEq/L Carbon Dioxide 25 (21-32) mEq/L Anion Gap 16.2 H (5-15) BUN 16 (7-18) mg/dL Creatinine 0.8 (0.55-1.02) mg/dL Est Cr Clr Drug Dosing 84.11 mL/min Estimated GFR (MDRD) > 60 (>60) mL/min BUN/Creatinine Ratio 20.0 H (14-18) Glucose 99 (74-106) mg/dL Calcium 8.9 (8.5-10.1) mg/dL Magnesium 1.4 L (1.8-2.4) mg/dl C-Reactive Protein 5.9 H* (<1.0) mg/dL DEJUAN Results - Last 24 hrs: Microbiology 04/11/17 07:50 Aerobic Blood Culture - Preliminary Blood - Venous NO GROWTH AFTER 2 DAYS Anaerobic Blood Culture - Preliminary NO GROWTH AFTER 2 DAYS 04/10/17 10:57 Wound Culture - Final Chest - Left Staphylococcus Aureus 04/10/17 11:00 Catheter Tip Culture - Final Catheter Tip Other - Port-A-Cath Staphylococcus Aureus 04/11/17 09:19 Aerobic Blood Culture - Preliminary Blood - Venous - Lab Draw NO GROWTH AFTER 1 DAY Anaerobic Blood Culture - Preliminary NO GROWTH AFTER 1 DAY Med Orders - Current: Current Medications Acetaminophen (Tylenol) 650 mg PO Q4H PRN PRN Reason: Pain (Mild 1-3)/fever Last Admin: 04/08/17 23:36 Dose: 650 mg Acetaminophen/Butalbital/Caffeine (Fioricet 325-50-40 Mg) 2 tab PO Q6H PRN PRN Reason: Headache/Pain Last Admin: 04/13/17 03:02 Dose: 2 tab Albuterol/Ipratropium (Duoneb 3.0-0.5 Mg/3 Ml) 3 ml NEB Q4H PRN PRN Reason: Shortness Of Breath/wheezing Bisacodyl (Dulcolax) 5 mg PO DAILY PRN PRN Reason: Constipation Dexamethasone (Dexamethasone) 2 mg PO BID [facility] Last Admin: 04/12/17 21:16 Dose: 2 mg Docusate Sodium (Colace) 100 mg PO BID PRN PRN Reason: Constipation Folic Acid (Folic Acid) 1 mg PO DAILY [facility] Last Admin: 04/12/17 08:58 Dose: 1 mg Hydralazine HCl (Apresoline) 20 mg IVPUSH Q4H PRN PRN Reason: Hypertension Hydromorphone HCl (Dilaudid) 1 mg IVPUSH Q4H PRN PRN Reason: Pain Last Admin: 04/12/17 21:07 Dose: 1 mg Promethazine HCl 12.5 mg/ (Sodium Chloride) 50.5 mls @ 100 mls/hr IV Q6H PRN PRN Reason: Nausea/Vomiting Ceftriaxone Sodium 1 gm/ (Dextrose/Water) 100 mls @ 200 mls/hr IV Q24H [facility] Last Admin: 04/12/17 11:07 Dose: 200 mls/hr Lorazepam (Ativan) 1 mg IV Q6H PRN PRN Reason: Anxiety Last Admin: 04/10/17 22:37 Dose: 1 mg Lorazepam (Ativan) 2 mg IVPUSH Q4H PRN PRN Reason: Seizures Magnesium Hydroxide (Milk Of Magnesia) 30 ml PO Q12H PRN PRN Reason: Constipation Magnesium Sulfate (Pharmacy To Dose - Magnesium Replacement) 1 dose .XX ASDIRECTED [facility] Metoprolol Tartrate (Lopressor) 5 mg IVPUSH Q4H PRN PRN Reason: Tachycardia Last Admin: 04/09/17 00:28 Dose: 5 mg Mometasone Furoate/Formoterol Fumar (Dulera 100-5 Mcg) 0 puff IH BID [facility] Last Admin: 04/13/17 08:33 Dose: 1 puff Ondansetron HCl (Zofran) 4 mg IV Q4H PRN PRN Reason: Nausea/Vomiting Oxycodone HCl (Oxycodone) 10 mg PO Q4H PRN PRN Reason: Pain Last Admin: 04/13/17 05:19 Dose: 10 mg Pantoprazole Sodium (Protonix) 40 mg PO DAILY@0700 [facility] Last Admin: 04/13/17 06:50 Dose: 40 mg Lidocaine/Prilocaine (1 Applic) 0 each TOP ASDIRECTED [facility] Promethazine [ (Phenergan] Plo Gel) 0 each TOP Q6H PRN PRN Reason: Nausea Polyethylene Glycol (Miralax) 17 gm PO DAILY PRN PRN Reason: Constipation Last Admin: 04/08/17 15:33 Dose: 17 gm Potassium Chloride (Pharmacy To Dose - Potassium Replacement) 1 dose .XX ASDIRECTED [facility] Prochlorperazine Maleate (Compazine) 10 mg PO QID PRN PRN Reason: Nausea/Vomiting Scopolamine (Scopolamine) 1 each TRDERM Q72H PRN PRN Reason: Nausea Last Admin: 04/08/17 12:48 Dose: 1 each Senna/Docusate Sodium (Senna Plus) 1 tab PO BID PRN PRN Reason: Constipation Last Admin: 04/08/17 15:33 Dose: 1 tab Sertraline HCl (Zoloft) 50 mg PO DAILY [facility] Last Admin: 04/12/17 08:58 Dose: 50 mg Temazepam (Restoril) 15 mg PO BEDTIME PRN PRN Reason: Sleep Last Admin: 04/10/17 22:32 Dose: 15 mg Discontinued Medications Hydrocodone Bitart/Acetaminophen (Sherman 325-5 Mg) 1 tab PO Q4H PRN PRN Reason: Pain (moderate 4-6) Last Admin: 04/08/17 12:49 Dose: 1 tab Bisacodyl (Dulcolax) 10 mg RECTAL ONETIME ONE Stop: 04/08/17 15:00 Last Admin: 04/08/17 15:13 Dose: 10 mg Diphenhydramine HCl (Benadryl) 25 mg IV ONETIME ONE Stop: 04/10/17 09:16 Last Admin: 04/10/17 10:32 Dose: 25 mg Dronabinol (Marinol) 2.5 mg PO TIDAC NIRANJAN Last Admin: 04/08/17 21:41 Dose: Not Given Fentanyl (Duragesic) 12 mcg TRDERM Q72H NIRANJAN Fentanyl (Duragesic) 25 mcg TRDERM Q72H NIRANJAN Last Admin: 04/08/17 21:45 Dose: Not Given Hydromorphone HCl (Dilaudid) 1 mg IVPUSH ONETIME ONE Stop: 04/08/17 06:08 Last Admin: 04/08/17 07:49 Dose: Not Given Hydromorphone HCl (Dilaudid) Confirm Administered Dose 1 mg .ROUTE .STK-MED ONE Stop: 04/08/17 06:20 Last Admin: 04/08/17 06:24 Dose: Not Given Hydromorphone HCl (Dilaudid) 1 mg IVPUSH ONETIME ONE Stop: 04/08/17 06:17 Last Admin: 04/08/17 06:17 Dose: 1 mg Hydromorphone HCl (Dilaudid) 1 mg IVPUSH ONETIME ONE Stop: 04/08/17 08:00 Last Admin: 04/08/17 08:13 Dose: Not Given Hydromorphone HCl (Dilaudid) 1 mg IVPUSH ONETIME ONE Stop: 04/08/17 08:07 Last Admin: 04/08/17 08:11 Dose: 1 mg Sodium Chloride (Normal Saline) 1,000 mls @ 999 mls/hr IV ONETIME ONE Stop: 04/08/17 08:31 Last Admin: 04/08/17 07:50 Dose: 999 mls/hr Cefepime HCl 2 gm/ Premix 50 mls @ 100 mls/hr IV ONETIME ONE Stop: 04/08/17 08:52 Last Admin: 04/08/17 09:07 Dose: 100 mls/hr Sodium Chloride (Normal Saline) 1,000 mls @ 150 mls/hr IV ASDIRECTED [facility] Last Admin: 04/08/17 09:09 Dose: 150 mls/hr Cefepime HCl 2 gm/ Premix 50 mls @ 100 mls/hr IV Q8H [facility] Last Admin: 04/10/17 09:05 Dose: 100 mls/hr Sodium Chloride (Normal Saline) 2,000 mls @ 999.029 mls/hr IV ONETIME ONE Stop: 04/08/17 16:03 Last Admin: 04/08/17 15:38 Dose: 999.029 mls/hr Sodium Chloride (Normal Saline) 1,000 mls @ 125 mls/hr IV ASDIRECTED [facility] Last Admin: 04/10/17 06:35 Dose: 125 mls/hr Magnesium Sulfate 4 gm/ Premix 100 mls @ 50 mls/hr IV ONETIME ONE Stop: 04/09/17 13:29 Last Admin: 04/09/17 11:36 Dose: 50 mls/hr Magnesium Sulfate 2 gm/ Premix 50 mls @ 25 mls/hr IV ONETIME ONE Stop: 04/12/17 11:59 Last Admin: 04/12/17 11:07 Dose: 25 mls/hr Lidocaine/Epinephrine (Xylocaine 1% With Epinephrine 1:100,000) Confirm Administered Dose 20 ml .ROUTE .STK-MED ONE Stop: 04/10/17 10:01 Last Admin: 04/10/17 10:52 Dose: 9 ml Lidocaine/Epinephrine (Xylocaine 1% With Epinephrine 1:100,000) Confirm Administered Dose 20 ml .ROUTE .STK-MED ONE Stop: 04/10/17 10:11 Magnesium Oxide (Magnesium Oxide) 800 mg PO ONETIME ONE Stop: 04/11/17 08:31 Last Admin: 04/11/17 09:19 Dose: 800 mg Miscellaneous Information (Remove Patch) 0 ea TRDERM Q72H [facility] Ondansetron HCl (Zofran) 4 mg IVPUSH ONETIME ONE Stop: 04/08/17 06:23 Last Admin: 04/08/17 08:37 Dose: Not Given Ondansetron HCl (Zofran) Confirm Administered Dose 4 mg .ROUTE .STK-MED ONE Stop: 04/08/17 09:58 Last Admin: 04/08/17 09:48 Dose: 4 mg Oxycodone HCl (Oxycodone) 5 mg PO Q4H PRN PRN Reason: Pain Last Admin: 04/12/17 08:58 Dose: 5 mg - Exam General: Reports: Alert, Oriented, Cooperative, No Acute Distress, Other (Obese) HEENT: Reports: Pupils Equal, Pupils Reactive, EOMI, Mucous Membr. Moist/[place] Neck: Reports: Supple, Trachea Midline, No Thyromegaly, Other (short and thick) Lungs: Reports: Clear to Auscultation, Normal Respiratory Effort Cardiovascular: Reports: Regular Rate, Regular Rhythm GI/Abdominal Exam: Normal Bowel Sounds, Soft, Non-Tender, No Organomegaly, No Distention, No Abnormal Bruit (Female) Exam: Deferred Rectal (Female) Exam: Deferred Back Exam: Reports: Normal Inspection, Decreased Range of Motion Extremities: Normal Inspection, Normal Range of Motion, Non-Tender, No Pedal Edema, Normal Capillary Refill Skin: Reports: Warm, Dry, Intact Neurological: Reports: No New Focal Deficit Psy/Mental Status: Reports: Alert, Normal Affect, Normal Mood *Q Meaningful Use (DIS) - VTE *Q VTE Criteria *Q: - Stroke *Q Stroke Criteria *Q: - AMI *Q AMI Criteria *Q:
[2017-04-13] MEDS: Dexamethasone 4 MG Tab PO SCH (09:01)
[2017-04-13] MEDS: Folic Acid 1 MG Tab PO SCH (09:01)
[2017-04-13] MEDS: Sertraline 50 MG Tab PO SCH (09:01)
[2017-04-13] MEDS: Magnesium Sulfate/Water 2 GM in Premix Bag 1 BAG IV SCH ×2 (10:05→13:13)
[2017-04-13] MEDS ORDERED: Levofloxacin 750 MG Tab PO ONE (10:30)
[2017-04-13 12:29] VITALS: BP 112/73
== END 2017-04-13 15:35 | disposition home or self-care (01) | DRG 711 ==
LOC: JD.ED 05:40 → JD.MS 09:28
PROVIDERS: ADMIT Internal Medicine; ATTEND Internal Medicine
PROC: 0JPT0WZ Removal of Totally Implantable Vascular Access Device from Trunk Subcutaneous Tissue and Fascia, Open Approach (ICD-10-PCS; principal; 2017-04-10)
PROC: 05PY03Z Removal of Infusion Device from Upper Vein, Open Approach (ICD-10-PCS; 2017-04-10)
PROC: 30233N1 Transfusion of Nonautologous Red Blood Cells into Peripheral Vein, Percutaneous Approach (ICD-10-PCS; 2017-04-10)
DX: T80.219A Unspecified infection due to central venous catheter, initial encounter (principal); D70.3 Neutropenia due to infection; R53.1 Weakness; R51 Headache; E87.2 Acidosis; E83.42 Hypomagnesemia; R30.0 Dysuria; I95.9 Hypotension, unspecified; R78.81 Bacteremia; B95.61 Methicillin susceptible Staphylococcus aureus infection as the cause of diseases classified elsewhere; J45.909 Unspecified asthma, uncomplicated; C55 Malignant neoplasm of uterus, part unspecified; C78.00 Secondary malignant neoplasm of unspecified lung; C79.31 Secondary malignant neoplasm of brain; H54.7 Unspecified visual loss; D52.9 Folate deficiency anemia, unspecified; Z88.2 Allergy status to sulfonamides; Z88.8 Allergy status to other drugs, medicaments and biological substances; Z79.899 Other long term (current) drug therapy
CPT/HCPCS: 36415; 70450; 70450-26; 71045; 71045-26; 80048; 80053; 81001; 82607; 82746; 83605; 83735; 83921; 85014; 85018; 85025; 86140; 86850; 86900; 86901; 86922; 87040; 87070; 87077; 87086; 87186; 87804; 94640; 94664; 94760; 94761; 96361; 96365; 96375; 96376; 97110-GP; 97116-GP; 97162-GP; 97165-GO; 97530-GP; 99285; 99285-25; A9270; A9270-GY; J0692; J0696; J1170; J1200; J2060; J2405; J3475; J3490; J7040; J7060; J8540; P9016; Q0167

== ENCOUNTER 2017-04-21 08:28 | Day surgery (SDC) | payer BC ==
[~2017-04-21 08:28] MED LIST: Lactated Ringers 1,000 ML IV SCH; Lidocaine 1%/Sod Bicarbonate in NS 8.4% 1 ML Syringe IDERM PRN; Sodium Chloride 0.9% 10 ML Syringe FLUSH PRN
[2017-04-21] MEDS ORDERED: Lactated Ringers 1,000 ML ONE (09:10)
[2017-04-21] MEDS ORDERED: Ondansetron 4 MG/2 ML SDV ONE (09:10)
[2017-04-21] MEDS ORDERED: Ketamine 500 mg/10 ML MDV ONE (09:11)
[2017-04-21] MEDS ORDERED: fentaNYL 100 MCG/2 ML SDV ONE (09:11)
[2017-04-21] MEDS ORDERED: Midazolam 1 MG/ML 2 ML SDV ONE ×2 (09:11→11:20)
[2017-04-21] MEDS ORDERED: Propofol 200 MG/20 ML SDV ONE ×2 (09:11)
[2017-04-21] MEDS ORDERED: Lidocaine 1% 4 ML ONE (09:12)
[2017-04-21] MEDS ORDERED: ceFAZolin 1 GM Vial ONE (09:12)
[2017-04-21] MEDS ORDERED: Lidocaine 1% 50 ML MDV ONE (09:22)
[2017-04-21] MEDS ORDERED: Sodium Chloride 0.9% 50 ML SDV ONE (09:22)
--- NOTE | 2017-04-21 09:48 | PCM.PREANE ---
Preanesthetic Assessment - Anesthesia/Transfusion/Family Hx Anesthesia History: Prior Anesthesia Without Reaction Family History of Anesthesia Reaction: No Transfusion History: Prior Transfusion Without Reaction - Review of Systems General: Weakness, Fatigue Pulmonary: No Symptoms Cardiovascular: No Symptoms Gastrointestinal: No Symptoms Neurological: No Symptoms Other: Reports: Easy Bruising - Physical Assessment NPO Status Date: 04/20/17 NPO Status Time: 23:30 Pulse: 91 O2 Sat by Pulse Oximetry: 99 Respiratory Rate: 20 Blood Pressure: 125/92 Temperature: 36.1 C Weight: 91 kg ASA Class: 3 Mental Status: Alert & Oriented x3 Airway Class: Mallampati = 1 Dentition: Reports: Normal Dentition Thyro-Mental Finger Breadths: 3 Mouth Opening Finger Breadths: 3 ROM/Head Extension: Full Lungs: Clear to Auscultation, Normal Respiratory Effort Cardiovascular: Regular Rate, Regular Rhythm - Allergies Allergies/Adverse Reactions: Allergies Allergy/AdvReac Type Severity Reaction Status Date / Time sulfamethoxazole Allergy Hives Verified 04/08/17 09:34 trimethoprim Allergy Hives Verified 04/08/17 09:34 duloxetine [From Cymbalta] AdvReac Hallucinati Verified 04/08/17 11:15 ons fentanyl AdvReac Nausea and Verified 04/08/17 14:34 Vomiting - Acknowledgements Anesthesia Type Planned: MAC Pt an Appropriate Candidate for the Planned Anesthesia: Yes Alternatives and Risks of Anesthesia Discussed w Pt/Guardian: Yes Pt/Guardian Understands and Agrees with Anesthesia Plan: Yes PreAnesthesia Questionnaire HEENT History: Reports: Impaired Vision Other HEENT History: wears corrective lenses Cardiovascular History: Reports: None Respiratory History: Reports: Asthma, Other (See Below) Other Respiratory History: Pulmonary nodule Genitourinary History: Reports: Other (See Below) Other Genitourinary History: dysuria TANK COOPER History: Reports: Other (See Below) Other OB/BYN History: uterine cancer Musculoskeletal History: Reports: Other (See Below) Other Musculoskeletal History: carpal tunnel bilaterally Neurological History: Reports: None Psychiatric History: Reports: None Endocrine/Metabolic History: Reports: None Hematologic History: Reports: Blood Transfusion(s) Immunologic History: Reports: None Oncologic (Cancer) History: Reports: Brain, Lung, Uterine Other Oncologic History: Bx. lung, & uterus/cervix Dermatologic History: Reports: None - Past Surgical History Head Surgeries/Procedures: Reports: None HEENT Surgical History: Reports: None Cardiovascular Surgical History: Reports: None Respiratory Surgical History: Reports: None GI Surgical History: Reports: Appendectomy Female Surgical History: Reports: None Male Surgical History: Reports: None Endocrine Surgical History: Reports: None Neurological Surgical History: Reports: None Musculoskeletal Surgical History: Reports: Other (See Below) Other Musculoskeletal Surgeries/Procedures:: carpal tunnel corrective surgery Dermatological Surgical History: Reports: None - SUBSTANCE USE Smoking Status *Q: Never Smoker Tobacco Use Within Last Twelve Months: No Second Hand Smoke Exposure: No Recreational Drug Use History: No - HOME MEDS Home Medications: Home Meds Albuterol [IJD: Ventolin HFA] 2 puff INH Q4HR PRN 04/08/17 [History] Budesonide/Formoterol [Symbicort 80-4.5 MCG] 1 puff INH BID 04/08/17 [History] Dexamethasone 2 mg PO BID 04/08/17 [History] Hydrocodone/Acetaminophen [Hydrocodon-Acetaminophen 5-325] 1 - 2 tab PO Q4H PRN 04/08/17 [History] LORazepam 0.5 mg PO QID PRN 04/08/17 [History] Lidocaine/Prilocaine [Lidocaine-Prilocaine Cream] 1 applic TOP ASDIRECTED [History] Omeprazole 40 mg PO DAILY 04/08/17 [History] Ondansetron [Zofran ODT] 4 mg PO Q4H PRN 04/08/17 [History] Prochlorperazine [Compazine] 10 mg PO QID PRN 04/08/17 [History] Promethazine [Phenergan] 0.5 ml TOP Q6H PRN 04/08/17 [History] Sertraline [Zoloft] 50 mg PO DAILY 04/08/17 [History] Cyanocobalamin/FA/Pyridoxine [Folic Acid-Vit B6-Vit B12] 1 each PO ASDIRECTED # 30 tablet 04/13/17 [Rx] Levofloxacin [Levaquin] 500 mg PO DAILY #7 tab 04/13/17 [Rx] Saccharomyces Boulardii [Florastor] 250 mg PO DAILY #7 cap 04/13/17 [Rx] - CURRENT (IN HOUSE) MEDS Current Meds: Current Medications Lactated Ringer's (Ringers, Lactated) 1,000 mls @ 125 mls/hr IV ASDIRECTED NIRANJAN Stop: 04/21/17 23:00 Lidocaine/Sodium Bicarbonate (Buffered Lidocaine 1% In Ns 8.4%) 0.25 ml IDERM ONETIME PRN PRN Reason: Prior to IV Start Stop: 04/21/17 18:00 Sodium Chloride (Saline Flush) 10 ml FLUSH ASDIRECTED PRN PRN Reason: Keep Vein Open Stop: 04/21/17 18:00 Discontinued Medications Cefazolin Sodium (Ancef) Confirm Administered Dose 2 gm .ROUTE .STK-MED ONE Stop: 04/21/17 09:13 Fentanyl (Sublimaze) Confirm Administered Dose 100 mcg .ROUTE .STK-MED ONE Stop: 04/21/17 09:12 Heparin Sodium (Porcine) (Heparin Lock Flush 100 Units/Ml) Confirm Administered Dose 500 units .ROUTE .STK-MED ONE Stop: 04/21/17 09:23 Lactated Ringer's (Ringers, Lactated) Confirm Administered Dose 1,000 mls @ as directed .ROUTE .STK-MED ONE Stop: 04/21/17 09:11 Lidocaine HCl (Xylocaine-Mpf 1%) Confirm Administered Dose 4 mls @ as directed .ROUTE .STK-MED ONE Stop: 04/21/17 09:13 Ketamine HCl (Ketalar) Confirm Administered Dose 500 mg .ROUTE .STK-MED ONE Stop: 04/21/17 09:12 Lidocaine HCl (Xylocaine 1%) Confirm Administered Dose 50 ml .ROUTE .STK-MED ONE Stop: 04/21/17 09:23 Midazolam HCl (Versed 1 Mg/Ml) Confirm Administered Dose 4 mg .ROUTE .STK-MED ONE Stop: 04/21/17 09:12 Ondansetron HCl (Zofran) Confirm Administered Dose 4 mg .ROUTE .STK-MED ONE Stop: 04/21/17 09:11 Propofol (Diprivan 20 Ml) Confirm Administered Dose 400 mg .ROUTE .STK-MED ONE Stop: 04/21/17 09:12 Propofol (Diprivan 20 Ml) Confirm Administered Dose 200 mg .ROUTE .STK-MED ONE Stop: 04/21/17 09:12 Sodium Chloride (Normal Saline) Confirm Administered Dose 50 ml .ROUTE .STK-MED ONE Stop: 04/21/17 09:23
--- NOTE | 2017-04-21 09:58 | PCM.SN ---
- Free Text/Narrative Note: [address] Beatty due to need for pelvic exam for patient. Known cervical cancer patient who presented port placement, but complained of vaginal bleeding starting that morning. Overall amount is small. Mostly notable when using the restroom. Bright red. Having a fair amount of pain, but this is unchanged from previous. No other new complaints. Yanci Kaminski MD
--- NOTE | 2017-04-21 09:59 | PCM.OPNOTE ---
- General Post-Op/Procedure Note Date of Surgery/Procedure: 04/21/17 Operative Procedure(s): Exam under anesthesia Findings: Speculum exam shows no active bleeding from any source. Thickened anterior vaginal wall with tumor noted throughout. Pre Op Diagnosis: Metastatic cervical cancer. Bleeding Post-Op Diagnosis: Same Anesthesia Technique: MAC Primary Surgeon: Yanci Kaminski Complications: None Condition: Good Free Text/Narrative:: Patient brought to the OR where anesthesia was induced without difficulty. She was placed on a bedpan and frog legged. Speculum placed into the vagina showing findings above. No need to defer port placement. Case then performed by Dr. Beatty
[2017-04-21] MEDS ORDERED: HYDROmorphone 1 MG/ML Syringe ONE (10:11)
[2017-04-21] MEDS ORDERED: Dexamethasone 4 MG/ML 5 ML MDV ONE (10:35)
--- NOTE | 2017-04-21 11:10 | PCM.OPNOTE ---
- General Post-Op/Procedure Note Date of Surgery/Procedure: 04/21/17 Operative Procedure(s): EUA by Dr. Gupta and placement of portacath by dr. Beatty Pre Op Diagnosis: vaginal bleeding and metastatic cervical cancer Post-Op Diagnosis: Same Primary Surgeon: Cisco Beatty EBL in mLs: 10 Complications: None Condition: Good
--- NOTE | 2017-04-21 11:17 | PCM48HPAN ---
Post Anesthesia Note - EVALUATION WITHIN 48HRS OF ANESTHETIC Vital Signs in Normal Range: Yes Patient Participated in Evaluation: Yes Respiratory Function Stable: Yes Airway Patent: Yes Cardiovascular Function Stable: Yes Hydration Status Stable: Yes Pain Control Satisfactory: Yes Nausea and Vomiting Control Satisfactory: Yes Mental Status Recovered: Yes Pulse Rate: 67 SaO2: 99 Resp Rate: 16 Temperature: 36.8 C Blood Pressure: 124/91
[2017-04-21] MEDS ORDERED: Acetaminophen/HYDROcodone 325-5 MG Tab PO PRN (11:22)
[2017-04-21 13:19] VITALS: BP 125/80
--- NOTE | 2017-04-21 13:50 | CR ---
Chest: Portable view of the chest was obtained. Comparison: Prior chest x-ray of 04/08/17. Left-sided infusion port is seen. Tip lies near the right atrial and superior vena cava junction. Lungs are clear. Heart size and mediastinum are normal. Bony structures are unremarkable. No pneumothorax is seen. Impression: 1. Right-sided infusion port. 2. Nothing acute is seen on portable chest x-ray. Diagnostic code #2
--- NOTE | 2017-04-21 14:51 | CR ---
Chest: Four fluoroscopic spot views were obtained of the chest during placement of Port-A-Cath. Fluoroscopy time was given as 172.1 seconds. Tip of catheter appears to be at the right atrial and superior vena cava junction. Impression: 1. Procedural study as noted above. Diagnostic code #2
--- NOTE | 2017-04-22 06:30 | OR ---
DATE OF OPERATION: 04/21/2017 SURGEON: Cisco Beatty MD PREOPERATIVE DIAGNOSIS: Cervical cancer and vaginal bleeding. POSTOPERATIVE DIAGNOSIS: Cervical cancer and vaginal bleeding. OPERATION PERFORMED: Placement of Port-A-Cath after Dr. Gupta examined the patient under anesthesia because of the vaginal bleeding. ANESTHESIA: Done under IV sedation. ESTIMATED BLOOD LOSS: About 10 mL. Bard single port was placed, reference #[id number]. DESCRIPTION OF PROCEDURE: The patient was taken to the operating room, placed in a supine position, connected to monitoring equipment, and given IV sedation. Examination under anesthesia was done by Dr. Gupta. Please see her report, was judged appropriate after this examination to proceed with a Port-A-Cath. She was placed on the examining table, positioned with a roll under her shoulder and SCDs were placed. Antibiotics had been given. Anterior chest wall was prepped with Betadine and draped off in a sterile fashion. It was then anesthetized with 1% Xylocaine. Using a Cook needle, the subclavian vein was identified and a wire was inserted under C-arm, was advanced into the inferior vena cava and then withdrawn. Over this wire, breakaway sheath and vein dilator were placed. The vein dilator was then removed, and the port was advanced into the breakaway sheath, but would not go past the tight corner. This was solved by placing a wire in the silastic catheter and it was then advanced into the inferior vena cava. The breakaway sheath was removed along with the wire, and the catheter was then withdrawn to the superior vena cava. The silastic catheter was then instilled saline and the tip was then clamped. Following this, the catheter was then set aside and a port pocket was then fashioned. Bleeding points were controlled with suture ligature of 3-0 Vicryl suture. The silastic catheter was then tunneled to the port pocket. It was trimmed and connected to the port, and the port adapter mechanism was fired. The port was then placed comfortably in the pocket and was sutured into position with a 3-0 Prolene suture. Subcuticular tissue was then closed with interrupted 3-0 Vicryl suture. The port was then aspirated and functioned well and then was irrigated with saline and heparinized saline. The skin of the port was then closed with subdermal 4-0 Dexon suture. Sterile dressing was then placed consisting of Steri-Strips and a dressing. The patient tolerated the procedure and was sent to recovery room in a stable condition. A chest x-ray will be obtained. MELY /[id number]
== END 2017-04-21 12:50 | disposition home or self-care (01) ==
LOC: JD.SDS 08:28
PROVIDERS: ATTEND Surgery
DX: C53.9 Malignant neoplasm of cervix uteri, unspecified (principal); N93.9 Abnormal uterine and vaginal bleeding, unspecified; R91.1 Solitary pulmonary nodule; J45.909 Unspecified asthma, uncomplicated; Z88.2 Allergy status to sulfonamides; Z88.8 Allergy status to other drugs, medicaments and biological substances; Z79.52 Long term (current) use of systemic steroids; Z79.899 Other long term (current) drug therapy; Z98.890 Other specified postprocedural states; Z90.49 Acquired absence of other specified parts of digestive tract
CPT/HCPCS: 36415; 36561; 71045; 77001; 80053; 85025; 86850; 86900; 86901; A9270; C1788; J0690; J1100; J1170; J1642; J2250; J2405; J7120; J2704; J3010

== ENCOUNTER 2017-05-10 08:37 | Emergency (ER) | payer BC ==
[2017-05-10] MEDS ORDERED: Ondansetron 4 MG/2 ML SDV IVPUSH ONE (08:50)
[2017-05-10 08:51] VITALS: BP 90/66
--- NOTE | 2017-05-10 08:56 | EDM.PDOC ---
ED HPI GENERAL MEDICAL PROBLEM - General Chief Complaint: Syncope Stated Complaint: [facility] Time Seen by Provider: 05/10/17 08:50 Source of Information: Reports: Patient History Limitations: Reports: No Limitations - History of Present Illness INITIAL COMMENTS - FREE TEXT/NARRATIVE: 41-year-old female brought to the ED per ambulance after she became dizzy and fell at home this morning. She reports she was quite nauseated this morning as well. Patient started a new form of chemotherapy over this last week. She has a Port-A-Cath right upper anterior chest. 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 Problem identified on an abnormal chest x- ray . Therefore she has stage IV disease. She also has known metastatic disease to the brain. She is on dexamethasone 2 mg twice daily she not sure for medication stay down this morning. She's had no abdominal surgery regards to uterus or ovaries. Port-A-Cath became infected left upper anterior chest and had to be removed. This disrupted her chemotherapy plan for 6 weeks and apparently the cancer has grown dramatically in that time frame. Patient reports that appetite was fair up until yesterday.She is very dizzy and lightheaded. Vision dimmed out/ blackened this morning causing her to fall to the floor. She did bang up her the undersurface of her chin but denies any other injuries. She does have a mild cough no fever no chills appreciated. Bruises very easily. Denies any loss of consciousness. She was so weak she could not get up off the floor and therefore the ambulance was summoned. They opted to bring her to the hospital. Initial BP was 90/66. Heart rate is 142- 145 at rest. She is cool and clammy and afebrile on initial exam. Therefore blood cultures 2 were not ordered. Onset: Today Onset Date: 05/10/17 Onset Time: 08:00 Duration: Minutes: (Please pill that made her fall to the floor with no complete loss of consciousness.) Location: Reports: Generalized (Generalized weakness and lightheaded and dizziness.) Quality: Reports: Other Severity: Severe (Dizzy and weak) Improves with: Reports: Rest Worsens with: Reports: Movement (Supine position standing.) Context: Reports: Other (Currently ill with cancer of the uterus that has spread above the diaphragm a stage IV disease. She is receiving chemotherapy this last week. She states she is voiding tremendously and perhaps his become dehydrated because of urinary frequency. States appetite has been fair. This morning upon standing she became very dizzy lightheaded and did fall down to the floor.). Denies: Activity, Exercise, Lifting, Sick Contact, Trauma Associated Symptoms: Reports: Cough, Malaise (Mild nonproductive cough), Nausea/ Vomiting, Shortness of Breath, Syncope (On minimal exertion), Weakness. Denies : Confusion, Chest Pain, cough w sputum, Diaphoresis, Fever/Chills, Headaches, Loss of Appetite, Rash (Mild nausea this morning and did vomit once.), Seizure Treatments SECURITY OFFICERS AND GUARDS: Reports: Other (see below) (Generalized none.) - Related Data Allergies Allergy/AdvReac Type Severity Reaction Status Date / Time sulfamethoxazole Allergy Hives Verified 05/10/17 08:44 trimethoprim Allergy Hives Verified 05/10/17 08:44 duloxetine [From Cymbalta] AdvReac Hallucinati Verified 05/10/17 08:44 ons fentanyl AdvReac Nausea and Verified 05/10/17 08:44 Vomiting Home Meds: Home Meds Albuterol [IJD: Ventolin HFA] 2 puff INH Q4HR PRN 04/08/17 [History] Budesonide/Formoterol [Symbicort 80-4.5 MCG] 1 puff INH BID 04/08/17 [History] Dexamethasone 2 mg PO BID 04/08/17 [History] Hydrocodone/Acetaminophen [Hydrocodon-Acetaminophen 5-325] 1 - 2 tab PO Q4H PRN 04/08/17 [History] LORazepam 0.5 mg PO QID PRN 04/08/17 [History] Lidocaine/Prilocaine [Lidocaine-Prilocaine Cream] 1 applic TOP ASDIRECTED [History] Omeprazole 40 mg PO DAILY 04/08/17 [History] Ondansetron [Zofran ODT] 4 mg PO Q4H PRN 04/08/17 [History] Prochlorperazine [Compazine] 10 mg PO QID PRN 04/08/17 [History] Promethazine [Phenergan] 0.5 ml TOP Q6H PRN 04/08/17 [History] Sertraline [Zoloft] 50 mg PO DAILY 02/20/18 [History] Cyanocobalamin/FA/Pyridoxine [Folic Acid-Vit B6-Vit B12] 1 each PO ASDIRECTED # 30 tablet 04/13/17 [Rx] Levofloxacin [Levaquin] 500 mg PO DAILY #7 tab 04/13/17 [Rx] Saccharomyces Boulardii [Florastor] 250 mg PO DAILY #7 cap 04/13/17 [Rx] Past Medical History HEENT History: Reports: Impaired Vision Other HEENT History: wears corrective lenses Cardiovascular History: Reports: None Respiratory History: Reports: Asthma, Other (See Below) Other Respiratory History: Pulmonary nodule Genitourinary History: Reports: Other (See Below) Other Genitourinary History: dysuria RAILROAD INSPECTOR History: Reports: Other (See Below) Other OB/BYN History: uterine cancer Musculoskeletal History: Reports: Other (See Below) Other Musculoskeletal History: carpal tunnel bilaterally Neurological History: Reports: None Psychiatric History: Reports: None Endocrine/Metabolic History: Reports: None Hematologic History: Reports: Blood Transfusion(s) Immunologic History: Reports: None Oncologic (Cancer) History: Reports: Brain, Lung, Uterine Other Oncologic History: Bx. lung, & uterus/cervix Dermatologic History: Reports: None - Past Surgical History Head Surgeries/Procedures: Reports: None HEENT Surgical History: Reports: None Cardiovascular Surgical History: Reports: None Respiratory Surgical History: Reports: None GI Surgical History: Reports: Appendectomy Female Surgical History: Reports: None Male Surgical History: Reports: None Endocrine Surgical History: Reports: None Neurological Surgical History: Reports: None Musculoskeletal Surgical History: Reports: Other (See Below) Other Musculoskeletal Surgeries/Procedures:: carpal tunnel corrective surgery Dermatological Surgical History: Reports: None Social & Family History - Family History HEENT: Reports: None Cardiac: Reports: Pacemaker GI: Reports: Bowel Obstruction, GERD : Reports: Renal Calculus Musculoskeletal: Reports: Fibromyalgia, Osteoarthritis, Other (See Below) Other Musculoskeletal Family History: Father with spinal stenosis Psychiatric: Reports: Anxiety, Eating Disorders Endocrine/Metabolic: Reports: Hypothyroidism Hematologic: Reports: B12 Deficiency Immunologic: Reports: Immunosuppression Dermatologic: Reports: Other (See Below) Other Dermatologic Family History: Lesions removed Oncologic: Reports: Bladder, Skin, Other (See Below) Other Oncologic Family History: retinablastomy - Tobacco Use Smoking Status *Q: Never Smoker Second Hand Smoke Exposure: No - Caffeine Use Caffeine Use: Reports: None - Recreational Drug Use Recreational Drug Use: No - Living Situation & Occupation Living situation: Reports: Single (Used to be employed at [employer].) Occupation: Employed ED ROS GENERAL - Review of Systems Review Of Systems: See Below Constitutional: Reports: Malaise, Weakness, Fatigue, Decreased Appetite, Weight Loss. Denies: Fever, Chills HEENT: Reports: No Symptoms Respiratory: Reports: Shortness of Breath, Cough. Denies: Wheezing, Pleuritic Chest Pain, Sputum, Hemoptysis (Nonproductive cough) Cardiovascular: Reports: No Symptoms. Denies: Chest Pain, Blood Pressure Problem, Claudication, Dyspnea on Exertion, Edema, Lightheadedness, Orthopnea, Palpitations, PND, Syncope Endocrine: Reports: Fatigue GI/Abdominal: Reports: No Symptoms : Reports: Frequency. Denies: Dysuria Musculoskeletal: Reports: No Symptoms Skin: Reports: Bruising Neurological: Reports: Dizziness, Syncope, Difficulty Walking (This morning), Weakness, Gait Disturbance (Due to weakness.). Denies: Headache, Numbness, Tingling, Tremors ( due to weakness), Trouble Speaking, Change in Speech Psychiatric: Reports: No Symptoms Hematologic/Lymphatic: Reports: No Symptoms Immunologic: Reports: No Symptoms ED EXAM, DIZZINESS - Physical Exam Exam: See Below Exam Limited By: No Limitations General Appearance: Alert, WD/WN, Mild Distress, Other (Appears very tired. She is without any hair due to chemotherapy.) Eye Exam: Bilateral Eye: Normal Inspection (Mild pallor.), Periorbital Changes ( Peripheral margins are pallid.) Throat/Mouth: Other (Tongue is mildly dry.) Head Exam: Atraumatic, Normocephalic Neck: Normal Inspection, Supple, Non-Tender, Full Range of Motion, Other (Has an ecchymoses developing on the undersurface of her chin. It is 3 cm in length and a centimeter in width.) Cardiovascular: Regular Rate, Rhythm, No Edema, No Gallop, No Murmur, No Rub, Tachycardia (Resting tachycardia of 1 45/m.) GI/Abdominal: Normal Bowel Sounds, Soft, Non-Tender, No Organomegaly, Other ( Appendectomy scar noted.) Neurological: Alert, Normal Mood/Affect, Normal Dorsiflexion, CN II-XII Intact, Normal Plantar Flexion, Normal Gait, Normal Reflexes Back Exam: Normal Inspection, Full Range of Motion, Other. No: CVA Tenderness ( L), CVA Tenderness (R) Extremities: Normal Inspection, Normal Range of Motion (No abrasions or contusions.), Non-Tender, No Pedal Edema, Other Psychiatric: Flat Affect Skin Exam: Warm, Dry, Intact, Ecchymosis (Multiple ecchymoses.) EKG INTERPRETATION EKG Date: 05/10/17 Time: 10:20 Rhythm: Other (Sinus tachycardia) Rate (Beats/Min): 121 [place]: Normal P-Wave: Present QRS: Other (Early R-wave transition consider right ventricular hypertrophy. Q waves II, III, and F aVF less than 25% of the QRS complex considered insignificant.) ST-T: Normal QT: Normal EKG Interpretation Comments: Borderline ECG Course - Vital Signs Last Recorded V/S: Last Vital Signs Temp 38.6 C H 05/10/17 10:40 Pulse 147 H 05/10/17 08:44 Resp 17 05/10/17 08:44 BP 90/66 05/10/17 08:44 Pulse Ox 87 L 05/10/17 08:44 - Orders/Labs/Meds Orders: Active Orders 24 hr Category Date Time Status EKG Documentation Completion [RC] STAT Care 05/10/17 08:52 Active Chest 1V Frontal [CR] Stat Exams 05/10/17 08:51 Taken CBC WITH AUTO DIFF [HEME] Stat Lab 05/10/17 09:18 Results CULTURE BLOOD [BC] Stat Lab 05/10/17 10:14 Received Dextrose 5%-0.9% NaCl [Dextrose 5%-Normal Saline] 1,000 Med 05/10/17 09:00 Active ml IV ASDIRECTED Dextrose 5%-0.9% NaCl [Dextrose 5%-Normal Saline] 1,000 Med 05/10/17 10:45 Active ml IV ASDIRECTED Blood Culture x2 Reflex Set [OM.PC] Stat Oth 05/10/17 09:56 Ordered Medication Orders Dextrose/Sodium Chloride (Dextrose 5%-Normal Saline) 1,000 mls @ 999 mls/hr IV ASDIRECTED NIRANJAN Last Admin: 05/10/17 09:27 Dose: 999 mls/hr Dextrose/Sodium Chloride (Dextrose 5%-Normal Saline) 1,000 mls @ 500 mls/hr IV ASDIRECTED NIRANJAN Last Admin: 05/10/17 10:57 Dose: 500 mls/hr Labs: Laboratory Tests 05/10/17 05/10/17 05/10/17 Range/Units 09:18 09:18 09:18 WBC 0.19 L* (3.98-10.04) K/mm3 RBC 3.06 L (3.98-5.22) M/mm3 Hgb 9.9 L (11.2-15.7) gm/L Hct 29.7 L (34.1-44.9) % MCV 97.1 H (79.4-94.8) fl MCH 32.4 H (25.6-32.2) pg MCHC 33.3 (32.2-35.5) g/dl RDW Std Deviation 58.2 H (36.4-46.3) fL Plt Count 48 L (182-369) K/mm3 MPV 9.6 (9.4-12.3) fl Neutrophils % (Manual) Cancelled Band Neutrophils % Cancelled Lymphocytes % (Manual) Cancelled Atypical Lymphs % Cancelled Immat Monocytes % (Man) Cancelled Monocytes % (Manual) Cancelled Eosinophils % (Manual) Cancelled Basophils % (Manual) Cancelled Metamyelocytes % Cancelled Myelocytes % Cancelled Promyelocytes % Cancelled Blast Cells % Cancelled Plasma Cell % (Manual) Cancelled Immature Gran # Cancelled Absolute Neutrophils Cancelled Absolute Seg Neuts Cancelled Band Neutrophils # Cancelled Lymphocytes # (Manual) Cancelled Monocytes # (Manual) Cancelled Eosinophils # (Manual) Cancelled Basophils # (Manual) Cancelled Absolute Metamyelocyte Cancelled Absolute Myelocytes Cancelled Absolute Promyelocytes Cancelled Absolute Plasma Cells Cancelled Nucleated RBCs Cancelled Differential Comment Cancelled Hypersegmented Neuts Cancelled Atypical Lymphocytes Cancelled Vacuolated Monocytes Cancelled Absolute Blast Cells Cancelled Toxic Granulation Cancelled Dohle Bodies Cancelled Pelger-Huet Cells Cancelled Megakaryocytic Frags Cancelled Joann Rods Cancelled WBC Morphology Comment Cancelled Platelet Estimate Cancelled Clumped Platelets Cancelled Giant Platelets Cancelled Plt Morphology Comment Cancelled Polychromasia Cancelled Hypochromasia Cancelled Poikilocytosis Cancelled Basophilic Stippling Cancelled Anisocytosis Cancelled Microcytosis Cancelled Macrocytosis Cancelled Spherocytes Cancelled Pappenheimer Bodies Cancelled Sickle Cells Cancelled Target Cells Cancelled Tear Drop Cells Cancelled Ovalocytes Cancelled Stomatocytes Cancelled Helmet Cells Cancelled [place] Bodies Cancelled [place] Rings Cancelled Brian Cells Cancelled Elliptocytes Cancelled Acanthocytes (Spur) Cancelled Rouleaux Cancelled Hemoglobin C Crystals Cancelled Schistocytes Cancelled RBC Morph Comment Cancelled Smear Path Review Cancelled Vijay Bodies Cancelled PT 14.8 H (8.0-13.0) SECONDS INR 1.38 APTT 28 (22-36) SECONDS Sodium 134 L (136-145) mEq/L Potassium 4.8 (3.5-5.1) mEq/L Chloride 95 L (98-107) mEq/L Carbon Dioxide 30 (21-32) mEq/L Anion Gap 13.8 (5-15) BUN 31 H (7-18) mg/dL Creatinine 1.5 H (0.55-1.02) mg/dL Est Cr Clr Drug Dosing 44.86 mL/min Estimated GFR (MDRD) 38 (>60) mL/min BUN/Creatinine Ratio 20.7 H (14-18) Glucose 111 H (74-106) mg/dL Serum Osmolality (280-300) mosm/kg Lactic Acid (0.4-2.0) mmol/L Calcium 9.0 (8.5-10.1) mg/dL Total Bilirubin 0.9 (0.2-1.0) mg/dL AST 32 (15-37) U/L ALT 24 (14-59) U/L Alkaline Phosphatase 67 (46-116) U/L CK-MB (CK-2) 1.8 (0-3.6) ng/ml Troponin I < 0.017 (0.00-0.056) ng/mL C-Reactive Protein 35.4 H* (<1.0) mg/dL Total Protein 7.3 (6.4-8.2) g/dl Albumin 2.9 L (3.4-5.0) g/dl Globulin 4.4 gm/dL Albumin/Globulin Ratio 0.7 L (1-2) Ketones (0.0-0.3) mM Slides for Path Review Cancelled 05/10/17 05/10/17 05/10/17 Range/Units 09:18 09:18 09:18 WBC (3.98-10.04) K/mm3 RBC (3.98-5.22) M/mm3 Hgb (11.2-15.7) gm/L Hct (34.1-44.9) % MCV (79.4-94.8) fl MCH (25.6-32.2) pg MCHC (32.2-35.5) g/dl RDW Std Deviation (36.4-46.3) fL Plt Count (182-369) K/mm3 MPV (9.4-12.3) fl Neutrophils % (Manual) Band Neutrophils % Lymphocytes % (Manual) Atypical Lymphs % Immat Monocytes % (Man) Monocytes % (Manual) Eosinophils % (Manual) Basophils % (Manual) Metamyelocytes % Myelocytes % Promyelocytes % Blast Cells % Plasma Cell % (Manual) Immature Gran # Absolute Neutrophils Absolute Seg Neuts Band Neutrophils # Lymphocytes # (Manual) Monocytes # (Manual) Eosinophils # (Manual) Basophils # (Manual) Absolute Metamyelocyte Absolute Myelocytes Absolute Promyelocytes Absolute Plasma Cells Nucleated RBCs Differential Comment Hypersegmented Neuts Atypical Lymphocytes Vacuolated Monocytes Absolute Blast Cells Toxic Granulation Dohle Bodies Pelger-Huet Cells Megakaryocytic Frags Joann Rods WBC Morphology Comment Platelet Estimate Clumped Platelets Giant Platelets Plt Morphology Comment Polychromasia Hypochromasia Poikilocytosis Basophilic Stippling Anisocytosis Microcytosis Macrocytosis Spherocytes Pappenheimer Bodies Sickle Cells Target Cells Tear Drop Cells Ovalocytes Stomatocytes Helmet Cells [place] Bodies [place] Rings Brian Cells Elliptocytes Acanthocytes (Spur) Rouleaux Hemoglobin C Crystals Schistocytes RBC Morph Comment Smear Path Review Vijay Bodies PT (8.0-13.0) SECONDS INR APTT (22-36) SECONDS Sodium (136-145) mEq/L Potassium (3.5-5.1) mEq/L Chloride (98-107) mEq/L Carbon Dioxide (21-32) mEq/L Anion Gap (5-15) BUN (7-18) mg/dL Creatinine (0.55-1.02) mg/dL Est Cr Clr Drug Dosing mL/min Estimated GFR (MDRD) (>60) mL/min BUN/Creatinine Ratio (14-18) Glucose (74-106) mg/dL Serum Osmolality 293 (280-300) mosm/kg Lactic Acid 2.5 H (0.4-2.0) mmol/L Calcium (8.5-10.1) mg/dL Total Bilirubin (0.2-1.0) mg/dL AST (15-37) U/L ALT (14-59) U/L Alkaline Phosphatase (46-116) U/L CK-MB (CK-2) (0-3.6) ng/ml Troponin I (0.00-0.056) ng/mL C-Reactive Protein (<1.0) mg/dL Total Protein (6.4-8.2) g/dl Albumin (3.4-5.0) g/dl Globulin gm/dL Albumin/Globulin Ratio (1-2) Ketones 0.2 (0.0-0.3) mM Slides for Path Review Meds: Medications Generic Name Dose Route Start Last Admin Trade Name Freq PRN Reason Stop Dose Admin Dextrose/Sodium Chloride 1,000 mls @ 999 mls/hr 05/10/17 09:00 05/10/17 09:27 Dextrose 5%-Normal Saline IV 999 mls/hr ASDIRECTED NIRANJAN Administration Dextrose/Sodium Chloride 1,000 mls @ 500 mls/hr 05/10/17 10:45 05/10/17 10:57 Dextrose 5%-Normal Saline IV 500 mls/hr ASDIRECTED NIRANJAN Administration Discontinued Medications Generic Name Dose Route Start Last Admin Trade Name Freq PRN Reason Stop Dose Admin Acetaminophen 650 mg 05/10/17 09:56 05/10/17 12:16 Tylenol PO 05/10/17 09:57 Not Given NOW ONE Acetaminophen 650 mg 05/10/17 10:29 05/10/17 10:40 Tylenol RECTAL 05/10/17 10:30 650 mg NOW ONE Administration Dexamethasone 4 mg 05/10/17 09:52 05/10/17 10:30 Dexamethasone IV 05/10/17 09:53 Not Given ONETIME ONE Dexamethasone 4 mg 05/10/17 10:30 05/10/17 10:29 Dexamethasone IVPUSH 05/10/17 10:31 4 mg ONETIME ONE Administration Cefepime HCl 2 gm/ Premix 50 mls @ 100 mls/hr 05/10/17 10:08 03/24/18 10:47 IV 05/10/17 10:37 100 mls/hr ONETIME ONE Administration Vancomycin HCl 1.75 gm/ Sodium 500 mls @ 250 mls/hr 05/10/17 10:34 05/10/17 11:47 Chloride IV 05/10/17 12:29 250 mls/hr ONETIME ONE Administration Ondansetron HCl 4 mg 05/10/17 08:50 05/10/17 09:27 Zofran IVPUSH 05/10/17 08:51 4 mg ONETIME ONE Administration - Radiology Interpretation Free Text/Narrative:: 41-year-old female with primary uterine cancer presenting to the ED after a syncopal event occurred at home this morning. She's been receiving chemotherapy all week through a right Port-A-Cath. She states that she was nauseated and did have emesis 1 this morning. Otherwise appetite has been pretty good up until today. No fever or chills. States she simply got lightheaded dizzy and joint down to the floor slowly. She did contuse the undersurface of her chin and has an ecchymoses inferior to the mentum. She states she may have contused her right knee a bit as well. No broken bones on examination. Clinically she appears to be significantly volume depleted. Resting heart rate is 1 45/m. BP initially is 90/64. Plan routine labs. IV initially will be D5 normal saline at open. Zofran 4 mg IV for nausea relief. - Re-Assessments/Exams Free Text/Narrative Re-Assessment/Exam: 05/10/17 09:53 patient is not sure that her medication stay down this morning. Therefore I will give her dexamethasone 4 mg IV as it may be contributing to her hypotension. 05/10/17 09:57 Temperature now is 101.6. Therefore blood cultures 2 will be ordered. Will give Tylenol 650 mg by mouth for fever relief. 05/10/17 10:09 lab called over and indicated that her white count is 1.9. I.e. severely neutropenic. The differential is not yet available to see her absolute neutrophil count. We'll start her on cefepime 2 g IV at this time. I will consult oncology in [place]. 05/10/17 10:[address] Burgos--oncologist in [place] and he recommended adding vancomycin to her treatment plan as well due to recent Port-A-Cath infection. Will give the patient 1,750 mg of Vancomycin as an initial dose as per new protocol. 05/10/17 10:46 has completed the initial liter of IV fluids. Antibiotic usage she will avail to take at IV fluids at 500 mils per hour.. Heart rate is down to 1 24/m. BP is 105/76. Will hang second liter of D5 normal saline at 500 mils per hour. 05/10/17 11:52 Labs reveal a white count of 0.19 i.e. leukopenia. Differential is still not yet available. Hemoglobin is low at 9.9 with hematocrit of 29.7. Platelet count is low at 48,000. PT is 14.8 with an INR of 1.38. PTT is 28. Sodium mildly low at 134 with a potassium of 4.8. Toward 95 with a bicarbonate 30. Anion gap is 13.8. BUNs elevated at 31 with a creatinine of 1.5. GFR is low at 38 i.e. stage III chronic kidney disease. Glucose is 111. Serum osmolality is low at 293. Lactic acid is 2.5 which is elevated mildly. Calcium is 9.0 total bilirubin 0.9. AST is 32 with an ALT of 24. Alkaline phosphatase is 67. CK -MB fraction is 1.8. Troponin I is less than 0.017. C-reactive protein is markedly elevated at 35.4. Ketones 0.2.. Patient is still not been able to pass any urine for analysis. Patient will require admission to the hospital ideally ICU. I will contact Dr. Britney Marlow was the on-call hospitalist at this time. Current vital signs show BP 100/68 with a heart rate with 123. 05/10/17 13:07 discuss case with senior application programmer neurologist at [facility] in [place] and Dr. Gonzales [facility] has accepted care. 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 It is possible she is going to require suprapubic catheterization. For this reason our hospitalist decided that urology intervention if necessary could only be carried out in [place] and therefore she should be transported. She is ill with acute febrile illness and hypotension due to early sepsis. Flexion is unclear but it may well be the urinary bladder due to distortion of the pelvic anatomy due to primary endometrial carcinoma. Ocean blood pressure has responded to fluids with BP 110 /94. Heart rate remains elevated at 118 and sinus. Patient refused attempts at [place] catheterization because of previous attempts in [place] have failed. She is unable to void here and bladder scan shows 450+ mils in her bladder. For this reason she is being sent to [place] for possible urological intervention. 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, Metastatic adenocarcinoma, Leukopenia due to antineoplastic chemotherapy, Thrombocytopenia, Acute febrile illness, Retention of urine, unspecified Anemia Qualifiers: Bone marrow failure anemia type: pancytopenia, other drug-induced Hypotension Qualifiers: Hypotension type: other hypotension type Qualified Code(s): I95.89 - Other hypotension - Discharge Information Referrals: Sanjuana Gray FROTHING MACHINE OPERATOR [Primary Care Provider] - Forms: ED Department Discharge - My Orders Last 24 Hours: My Active Orders 05/10/17 08:51 Chest 1V Frontal [CR] Stat 05/10/17 08:52 EKG Documentation Completion [RC] STAT 05/10/17 09:00 Dextrose 5%-0.9% NaCl [Dextrose 5%-Normal Saline] 1,000 ml IV ASDIRECTED 05/10/17 09:18 CBC WITH AUTO DIFF [HEME] Stat 05/10/17 09:56 Blood Culture x2 Reflex Set [OM.PC] Stat 05/10/17 10:14 CULTURE BLOOD [BC] Stat 05/10/17 10:45 Dextrose 5%-0.9% NaCl [Dextrose 5%-Normal Saline] 1,000 ml IV ASDIRECTED - Assessment/Plan Last 24 Hours: My Active Orders 05/10/17 08:51 Chest 1V Frontal [CR] Stat 05/10/17 08:52 EKG Documentation Completion [RC] STAT 05/10/17 09:00 Dextrose 5%-0.9% NaCl [Dextrose 5%-Normal Saline] 1,000 ml IV ASDIRECTED 05/10/17 09:18 CBC WITH AUTO DIFF [HEME] Stat 05/10/17 09:56 Blood Culture x2 Reflex Set [OM.PC] Stat 05/10/17 10:14 CULTURE BLOOD [BC] Stat 05/10/17 10:45 Dextrose 5%-0.9% NaCl [Dextrose 5%-Normal Saline] 1,000 ml IV ASDIRECTED
[2017-05-10] MEDS ORDERED: Dextrose 5%-0.9% NaCl 1,000 ML IV SCH ×2 (09:00→10:45)
[2017-05-10] MEDS ORDERED: Dexamethasone 4 MG/ML 5 ML MDV IV ONE (09:52)
[2017-05-10] MEDS ORDERED: Acetaminophen 325 MG Tab PO ONE (09:56)
[2017-05-10] MEDS ORDERED: Cefepime 2 GM in Premix Bag 1 BAG IV ONE (10:08)
[2017-05-10] MEDS ORDERED: Acetaminophen 650 MG Supp RECTAL ONE (10:29)
[2017-05-10] MEDS ORDERED: Dexamethasone 4 MG/ML SDV IVPUSH ONE (10:30)
[2017-05-10] MEDS ORDERED: Vancomycin 1.75 GM in Sodium Chloride 0.9% 500 ML IV ONE (10:34)
--- NOTE | 2017-05-10 15:44 | CR ---
Chest: Portable view of the chest was obtained. Comparison: Prior chest x-ray of 04/21/17. Heart size and mediastinum are within normal limits for portable technique. Right-sided infusion port is seen. Lungs are clear with no acute parenchymal densities. Bony structures are grossly intact. Impression: 1. Infusion port. 2. Nothing acute is appreciated on portable chest x-ray. Diagnostic code #2
== END 2017-05-10 13:55 ==
LOC: JD.ED 08:37
DX: C54.1 Malignant neoplasm of endometrium (principal); C79.9 Secondary malignant neoplasm of unspecified site; D70.2 Other drug-induced agranulocytosis; D69.6 Thrombocytopenia, unspecified; R33.9 Retention of urine, unspecified; D61.818 Other pancytopenia; I95.89 Other hypotension; Z79.899 Other long term (current) drug therapy; Z88.8 Allergy status to other drugs, medicaments and biological substances; Z88.2 Allergy status to sulfonamides
CPT/HCPCS: 36415; 51798; 71045; 80053; 82009; 82553; 83605; 83930; 84484; 85025; 85610; 85730; 86140; 87040; 93005; 96361; 96365; 96366; 96367; 96375; 99285; A9270; J0692; J1100; J2405; J3370; J7040; J7042; 93010

== ENCOUNTER 2017-06-21 13:48 | Emergency (ER) | payer BC ==
[2017-06-21 14:06] VITALS: BP 119/83
--- NOTE | 2017-06-21 14:23 | EDM.PDOC ---
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 She was in [place] on Fri this past week, 06/18/17, saw Urology who place suprapubic catheter after gilliland catheter was not working properly and causing increased pain for the patient. Catheter was draining appropriately until last night, family noticed dressings were completely soaked and no output in leg bag. This morning she was wet and dressings were wet, again, no output in leg bag. She has been afebrile, no other new symptoms. She continues to have chronic abdominal pain relating to tumor. She saw Dr. Riggs with [facility] on Friday. Her mother and family members are her primary care givers at this time. Abdominal Pain Score (Numeric/FACES): 9 - Related Data Allergies Allergy/AdvReac Type Severity Reaction Status Date / Time sulfamethoxazole Allergy Hives Verified 06/21/17 14:01 trimethoprim Allergy Hives Verified 06/21/17 14:01 duloxetine [From Cymbalta] AdvReac Hallucinati Verified 06/21/17 14:01 ons fentanyl AdvReac Nausea and Verified 06/21/17 14:01 Vomiting Home Meds: Home Meds Albuterol [IJD: Ventolin HFA] 2 puff INH Q4HR PRN 04/08/17 [History] Budesonide/Formoterol [Symbicort 80-4.5 MCG] 1 puff INH BID 04/08/17 [History] Dexamethasone 2 mg PO BID 04/08/17 [History] Hydrocodone/Acetaminophen [Hydrocodon-Acetaminophen 5-325] 1 - 2 tab PO Q4H PRN 04/08/17 [History] LORazepam 0.5 mg PO QID PRN 04/08/17 [History] Lidocaine/Prilocaine [Lidocaine-Prilocaine Cream] 1 applic TOP ASDIRECTED [History] Omeprazole 40 mg PO DAILY 04/08/17 [History] Ondansetron [Zofran ODT] 4 mg PO Q4H PRN 04/08/17 [History] Prochlorperazine [Compazine] 10 mg PO QID PRN 04/08/17 [History] Promethazine [Phenergan] 0.5 ml TOP Q6H PRN 04/08/17 [History] Sertraline [Zoloft] 50 mg PO DAILY 04/08/17 [History] Cyanocobalamin/FA/Pyridoxine [Folic Acid-Vit B6-Vit B12] 1 each PO ASDIRECTED # 30 tablet 04/13/17 [Rx] Levofloxacin [Levaquin] 500 mg PO DAILY #7 tab 04/13/17 [Rx] Saccharomyces Boulardii [Florastor] 250 mg PO DAILY #7 cap 04/13/17 [Rx] Past Medical History HEENT History: Reports: Impaired Vision Other HEENT History: wears corrective lenses Cardiovascular History: Reports: None Respiratory History: Reports: Asthma, Other (See Below) Other Respiratory History: Pulmonary nodule Genitourinary History: Reports: Other (See Below) Other Genitourinary History: dysuria STREET [employer] History: Reports: Other (See Below) Other OB/BYN History: uterine cancer Musculoskeletal History: Reports: Other (See Below) Other Musculoskeletal History: carpal tunnel bilaterally Neurological History: Reports: None Psychiatric History: Reports: None Endocrine/Metabolic History: Reports: None Hematologic History: Reports: Blood Transfusion(s) Immunologic History: Reports: None Oncologic (Cancer) History: Reports: Brain, Lung, Uterine Other Oncologic History: Bx. lung, & uterus/cervix Dermatologic History: Reports: None - Past Surgical History Head Surgeries/Procedures: Reports: None HEENT Surgical History: Reports: None Cardiovascular Surgical History: Reports: None Respiratory Surgical History: Reports: None GI Surgical History: Reports: Appendectomy Female Surgical History: Reports: None Endocrine Surgical History: Reports: None Neurological Surgical History: Reports: None Musculoskeletal Surgical History: Reports: Other (See Below) Other Musculoskeletal Surgeries/Procedures:: carpal tunnel corrective surgery Dermatological Surgical History: Reports: None Social & Family History - Family History HEENT: Reports: None Cardiac: Reports: Pacemaker GI: Reports: Bowel Obstruction, GERD : Reports: Renal Calculus Musculoskeletal: Reports: Fibromyalgia, Osteoarthritis, Other (See Below) Other Musculoskeletal Family History: Father with spinal stenosis Psychiatric: Reports: Anxiety, Eating Disorders Endocrine/Metabolic: Reports: Hypothyroidism Hematologic: Reports: B12 Deficiency Immunologic: Reports: Immunosuppression Dermatologic: Reports: Other (See Below) Other Dermatologic Family History: Lesions removed Oncologic: Reports: Bladder, Skin, Other (See Below) Other Oncologic Family History: retinablastomy - Tobacco Use Smoking Status *Q: Never Smoker Second Hand Smoke Exposure: No - Caffeine Use Caffeine Use: Reports: None - Recreational Drug Use Recreational Drug Use: No - Living Situation & Occupation Living situation: Reports: Single (Used to be employed at [employer].) Occupation: Employed ED ROS GENERAL - Review of Systems Review Of Systems: See Below Constitutional: Reports: Malaise, Weakness, Fatigue HEENT: Reports: Other (wears glasses; alopecia) Respiratory: Reports: No Symptoms Cardiovascular: Reports: No Symptoms GI/Abdominal: Reports: Abdominal Pain, Constipation (unsure of last BM, at least 2 days ago), Decreased Appetite (has PEG tube), Difficulty Swallowing : Reports: Other (suprapubic cath with leaking of urine surrounding tube) Neurological: Reports: Confusion (per family member/sister present with her today), Headache, Trouble Speaking (inttermit) Psychiatric: Reports: Confusion ED EXAM, RENAL/ - Physical Exam Exam: See Below Exam Limited By: Altered Mental Status (confused) General Appearance: Alert, No Apparent Distress, Lethargic, Obese Ears: Normal External Exam, Hearing Grossly Normal Nose: Normal Inspection Throat/Mouth: No Airway Compromise, Other (dry mucous membranes) Head: Atraumatic, Normocephalic, Other (alopecia) Neck: Normal Inspection Respiratory/Chest: No Respiratory Distress, Lungs Clear, Normal Breath Sounds ( decreased throughout) Cardiovascular: Regular Rate, Rhythm, No Murmur GI/Abdominal: Other (suprapubic catheter is present to ostomy with suture to the skin. Obvious leakage of liquid around the tube with saturation of dressing and pad over site is presesnt. No obvious s/s of infection or purulent drainage to ostomy site.) (Female) Exam: Deferred Rectal (Female) Exam: Deferred Neurological: Alert, Slow to Respond Course - Vital Signs Last Recorded V/S: Last Vital Signs Temp 97.8 F 06/21/17 14:01 Pulse 86 06/21/17 14:01 Resp BP 119/83 06/21/17 14:01 Pulse Ox 97 06/21/17 14:01 - Orders/Labs/Meds Orders: Active Orders 24 hr Category Date Time Status Bladder Irrigation [RC] ONETIME Care 06/21/17 15:00 Active Labs: Laboratory Tests 06/21/17 Range/Units 16:53 Urine Color Lexie H (Yellow) Urine Appearance Turbid H (Clear) Urine pH 8.5 H (5.0-8.0) Ur Specific [place] 1.020 (1.005-1.030) Urine Protein 1+ H (Negative) Urine Glucose (UA) Negative (Negative) Urine Ketones Negative (Negative) Urine Occult Blood 3+ H (Negative) Urine Nitrite Negative (Negative) Urine Bilirubin Negative (Negative) Urine Urobilinogen >=8.0 H (0.2-1.0) Ur Leukocyte Esterase Negative (Negative) Urine RBC Too numerous to cnt H (0-5) /hpf Urine WBC 5-10 H (0-5) /hpf Ur Epithelial Cells Not seen (0-5) /hpf Urine Bacteria Moderate H (FEW) /hpf Urine Mucus Not seen (FEW) /hpf - Re-Assessments/Exams Free Text/Narrative Re-Assessment/Exam: 06/21/17 15:24 Nursing with bladder scan of 17ml of urine present. Attempts to irrigate with 60ml syringe of NS with return of clear yellow urine and also leakage around tube. Balloon deflated and appears to be intact, re-inflated per nursing. Call placed to [facility], spoke to on-call Urologist Dr. Kirkland; recommendations to place gilliland catheter either through urethra or can attempt to place gilliland catheter through ostomy but likely catheter has dislodged. Also states will be okay for current catheter to remain in place and for urine to leak around tube until patient can follow up in the office on Friday with Urology. Will discuss options with patient and family. 06/21/17 16:25 Discussed with sister initially who then discussed with her mother and patient' s primary career technology teacher at home. Mother would like to come up to discuss options. Mother arrived, reviewed above options. Would like to leave current catheter in place and monitor. Now there is small amt of urine draining into leg bag. Will collect UA to assure no infection. If clear patient will be dc'd home with instructions to call Urology office on Friday. Patient and family in agreement to POC. Free Text/Narrative Re-Assessment/Exam: 06/21/17 17:20 Will call with UA results when returned Departure - Departure Time of Disposition: 17:03 Disposition: Home, Self-Care 01 Condition: Good Clinical Impression: Suprapubic catheter dysfunction Qualifiers: Encounter type: initial encounter Qualified Code(s): T83.010A - Breakdown ( mechanical) of cystostomy catheter, initial encounter - Discharge Information Instructions: Suprapubic Catheter Replacement, Care After, Suprapubic Catheter Home Guide Referrals: Sanjuana Gray, DESIGN AGENT [Primary Care Provider] - Forms: ED Department Discharge Additional Instructions: Continue to monitor urine output. Cont to change dressings when wet. Call Urology office on Friday with report of symptoms. Call or return to ER if needed. - My Orders Last 24 Hours: My Active Orders 06/21/17 15:00 Bladder Irrigation [RC] ONETIME - Assessment/Plan Last 24 Hours: My Active Orders 06/21/17 15:00 Bladder Irrigation [RC] ONETIME
== END 2017-06-21 17:35 | disposition home or self-care (01) ==
LOC: JD.ED 13:48
DX: T83.010A Breakdown (mechanical) of cystostomy catheter, initial encounter (principal); C54.1 Malignant neoplasm of endometrium; E03.9 Hypothyroidism, unspecified; Z88.2 Allergy status to sulfonamides; Z88.8 Allergy status to other drugs, medicaments and biological substances; Z79.899 Other long term (current) drug therapy
CPT/HCPCS: 51700; 51798; 81001; 99283; 99284-25